=== PATIENT | male | born 1960 | race Caucasian/White ===

== ENCOUNTER → 2017-01-26 | Outpatient (CLI) | payer OTHER ==
[~2017-01-26] MED LIST: CETI10TA10 PO; IBUP-1050 PO
[2017-01-26 10:24] LABS: CHOLESTEROL/HDL RATIO 3.5; PROSTATE SPECIFIC ANTIGEN 0.521 ng/ml (0.000-4.000)
== END | disposition home or self-care (01) ==
LOC: C.LAB1850 08:44
PROVIDERS: ATTEND Internal Medicine
DX: Z13.220 Encounter for screening for lipoid disorders (principal)

== ENCOUNTER 2019-06-22 13:54 | Inpatient (IN) ==
[2019-06-22] MEDS ORDERED: GI COCKTAIL ED USE PO ONE (14:23)
[2019-06-22] MEDS ORDERED: FAMOTIDINE 20 MG TAB PO ONE (14:23)
[2019-06-22] MEDS ORDERED: SUCRALFATE 1 GM TAB PO STA (14:23)
[2019-06-22] MEDS ORDERED: NITROGLYCERIN SL 0.4 MG/TAB TAB SL STA ×2 (14:28→14:48)
[2019-06-22] MEDS ORDERED: ASPIRIN CHEW 324 MG PO STA (14:28)
[2019-06-22] MEDS ORDERED: HEPARIN SOD (PORCINE) 1000 UNIT/ML 10 ML VIAL IV ONE (14:41)
[2019-06-22 14:50] LABS: Basophils # (auto) 0.03 K/uL (0-0.2); Basophils % (auto) 0.5 %; Eosinophils # (auto) 0.09 K/uL (0-0.5); Eosinophils % (auto) 1.6 %; Hematocrit (blood only) 47.2 % (42-52); Hemoglobin 16.9 g/dL (14.0-18.0); Immature Granulocytes # (auto) 0.01 K/uL (0.00-0.02); Immature Granulocytes % (auto) 0.2 %; Lymphocytes # (auto) 1.27 K/uL (1.2-3.4); Lymphocytes % (auto) 22.2 %; Mean Corpuscular Hemoglobin 34.9 pg (25-34); Mean Corpuscular Hgb Conc 35.8 g/dL (32-36); Mean Corpuscular Volume 97.5 fL (80-100); Mean Platelet Volume 10.6 fL (7.4-10.4); Monocytes # (auto) 0.63 K/uL (0.11-0.59); Neutrophils # (auto) 3.69 K/uL (1.4-6.5); Neutrophils % (auto) 64.5 %; Platelet Count 175 K/uL (130-400); RDW Standard Deviation 42.6 fL (36.4-46.3); Red Blood Count 4.84 M/uL (4.7-6.1); White Blood Count 5.72 K/uL (4.8-10.8)
[2019-06-22] MEDS ORDERED: MoRPHine SULFATE 10 MG/ML CARP/VIAL ONE (14:50)
[2019-06-22] MEDS ORDERED: ONDANSETRON INJ 2 MG/ML 2 ML VIAL ONE (14:50)
[2019-06-22] MEDS ORDERED: TICAGRELOR 90 MG TAB PO ONE (14:51)
[2019-06-22] MEDS ORDERED: HEPARIN (PORCINE) 1000 UNIT/ML 10 ML (CATH LAB USE ONLY) ONE (14:52)
[2019-06-22] MEDS ORDERED: NiCARDipine HCL INJ 2.5 MG/ML 10 ML AMP ONE (14:52)
[2019-06-22] MEDS ORDERED: NITROGLYCERIN/D5W 100MCG/ML 20ML SYR ONE (14:53)
[2019-06-22] MEDS ORDERED: fentaNYL citrate 100 MCG/2 ML VIAL ONE (14:53)
[2019-06-22] MEDS ORDERED: MIDAZOLAM HCL 1 MG/ML 2ML VIAL ONE (14:53)
[2019-06-22 14:58] LABS: D Dimer 310 ug/L FEU (0-500)
--- NOTE | 2019-06-22 15:01 | XRay Report ---
XR chest 1V portable CLINICAL HISTORY: Atypical chest pain COMPARISON STUDY: 10/07/2018 FINDINGS: The cardiac and mediastinal contours are normal. There is no evidence of focal pulmonary co nsolidation. There is no evidence of failure. No pleural effusions are visualized.[No pneumothorax is visualized. IMPRESSION: No active disease in the chest. ACT 112: Negative or not required by law. Electronically signed by: Alessandro Caal M.D. 06/22/2019 2:59 PM
--- NOTE | 2019-06-22 15:07 | Pre Anesthesia Assessment ---
Date of Service June 22, 2019 Pre Sedation Assessment Vital Signs Temp Pulse Resp BP Pulse Ox 06/22/19 15:00 60 16 124/71 98 06/22/19 14:56 58 L 16 97 06/22/19 14:55 65 19 135/86 97 06/22/19 14:54 67 23 144/74 H 98 06/22/19 14:51 73 24 98 06/22/19 14:45 71 20 97 06/22/19 14:41 80 17 153/93 H 97 06/22/19 14:40 71 16 97 06/22/19 14:36 76 20 94 06/22/19 14:30 67 18 152/90 H 06/22/19 14:25 81 21 100 06/22/19 14:23 97 06/22/19 14:21 84 17 100 06/22/19 14:15 70 18 95 06/22/19 14:11 62 18 95 06/22/19 14:09 59 L 12 168/89 H 95 06/22/19 14:00 97.5 F L 65 16 169/99 H 97 Cardiovascular RRR, no murmur, no edema Respiratory normal respiratory effort, lungs clear to auscultation Pre-Sedation Airway Assessment Smoking Status: Never smoker Hx Sleep Apnea: No Hx Difficult Intubation: No Short, Thick Neck: No Thyromental Distance: > or= 3.5 Finger Breadths Oral Cavity: + WNL Mallampati Class: III Procedure Planning Contraindications for Sedation: none Current Medications Reviewed: Yes Notes The planned sedation has been discussed with the patient. Informed Consent was obtained. I have identified the patient, determined the appropriateness of sedation and have assessed the patient immediately prior to the procedure. All medicine(s) and interventions are by my order.
[2019-06-22 15:08] LABS: Partial Thromboplastin Ratio 0.9; Partial Thromboplastin Time 24.6 Seconds (21.0-31.0); Prothrombin Time 10.6 Seconds (9.0-12.0)
[2019-06-22 15:10] LABS: BUN Creatinine Ratio 11.8 (10-20); Calcium 9.6 mg/dl (8.5-10.1); Creatinine Clr Calc Pharmacy 69.9 ml/min; Est GFR (African American) 70.7; Potassium 4.2 mmol/L (3.5-5.1)
--- NOTE | 2019-06-22 15:10 | Cardiac Catheterization ---
[facility] Data: [facility] [place] Cardiac Status Clinical evaluation leading to the procedure CAD Presenation: STEMI Anginal Classification: CCS IV Heart Failure: No Cardiogenic Shock within 24 Hours: No Cardiac Arrest within 24 Hours: No Imaging Studies Past 6 Months: No Stress Studies Past 6 Months: No Diagnostic Physicians Name: Sincere Casas MD Status: Emergency Closure Device Percutaneous Entry Location: Radial Closure Device: Radial Band Recommendations: PCI without planned CABG PCI Indication: Immediate PCI for STEMI Lesion Segment Name: Mid LAD Culprit Artery: Yes Stenosis Prior to Rx (%): 99 Chronic Total Occlusion: No IVUS: No FFR: No Pre-Procedure XUAN Flow: 2 Previously Treated Lesion: No Thrombus Present: Yes Bifurcation Lesion: Yes Guidewire Across Lesion: Stenosis Post-Procedure (%): 0 Post-Procedure XUAN Flow: 3 Devices(s) Deployed: Yes Yes Intraprocedure Events Significant Disection: No Perforation: No Cardiac Cath Procedure Full Procedure Date June 22, 2019 Pre-Procedure Diagnosis Pre-Procedure Diagnosis: STEMI AUC Score AUC Score: 9 Post-Procedure Diagnosis Post-Procedure Diagnosis: Severe CAD, Successful PCI and Normal Intracardiac Pressures Procedure(s) Performed Procedure(s) Performed: Coronary Angiography, Left Heart Cath and Drug Eluting Stent 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 Plug And 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 Medium caliber OM 2 with 50 to 60% proximal disease. RCA -large caliber vessel, dominant, 30 to 40% mid segment disease, distal luminal irregularities. LVEDP -15 -- PCI -- Antithrombotic therapy: Heparin, ticagrelor Procedure: Left main cannulated with EBU 3.5 guide BMW wire passed across lesion into distal vessel Mid LAD lesion predilated with 2.5 compliant balloon Dilated lesion stented with 3.5 x 26 mm [place] drug-eluting stent Stent post-dilated with 4.0 noncompliant balloon IC vasodilators administered for spasm Post procedure XUAN 3 flow, stent well expanded with minimal residual stenosis and no apparent cardiac complications. Arterial Closure: TR band Summary: 1. Anterior STEMI/99% earlymid LAD stenosis 2. Mild to moderate non-culprit vessel coronary artery disease -50 to 60% OM 2 30 to 40% mid RCA 3. Normal intracardiac filling pressure 4. Successful PCI of earlymid LAD with single drug-eluting stent (3.5 x 26 mm [place]; postdilated with 4.0 NC). Recommendations: Admit to ICU for continued monitoring Loaded with ticagrelor 180 mg in emergency department Continue dual-antiplatelet therapy for at least 1 year. Trend troponins until peak, Check Echo Uptitrate beta-rayshawn/NELLY as BP allows High-dose statin Consult cardiac Rehab Hemodynamics Rest Ao:: 102/66/83 Final Ao: 105/60/74 LV: 105/15 Recommendations Recommendations: PCI without planned CABG Specimens Specimens: None Radiation Exposure (mGy) 2174 Contrast (mls) 125 Fluids (cc crystalloids) Fluids (cc crystalloids): 100 Drains Drains: None Anesthesia Moderate Procedural Complication(s) None Disposition ICU I attest to the content of the Intraoperative Record and any orders documented therein. Any exceptions are noted below. [facility] Card Cath Procedure Codes Cardiac Catheterization Procedure 1: Cardiovascular Cath Procedures: 34708 Coronaries and LHC (+/-LV) Moderate Sedation Procedure 1: Sedation/Anesthesia: 76640 Mod Sedation by the same physician;Init15 Min Child Age 5 & Up Stenting Procedure 1: Cardiovascular Stent Procedures: 59376 Perc transluminal revascularization of acute sub/total occl, aMI PG Care Time/CCT Total # of Minutes Spent Total Time Spent with Patient: Total time spent is greater than 50% in coordination of care (as documented) at patient's floor/unit and/or counseling patient:
[2019-06-22] MEDS ORDERED: MoRPHine SULFATE 4 MG/ML 1 ML CARP\\VIAL ONE (15:11)
[2019-06-22 15:20] LABS: Albumin Globulin Ratio 1.1 (0.9-2); Bilirubin,Total 0.6 mg/dl (0.2-1); Creatine Kinase MB 5.8 ng/ml (0.5-3.6); Globulin 3.7 gm/dl (2.5-4.0); Total Protein 7.7 gm/dl (6.4-8.2); Troponin I 0.238 ng/ml (0-0.045)
--- NOTE | 2019-06-22 15:21 | Cardiology Consultation ---
Date of Consultation June 22, 2019 Assessment & Plan (1) ST elevation (STEMI) myocardial infarction: ASSESSMENT/PLAN: 1. STEMI: ECG suggestive of LAD STEMI. This was discussed with and Mrs. Hussein. Recommended nitroglycerin, heparin, and morphine for pain control. Brilinta 180 mg p.o. x1 ordered. Recommended heart alert activation. Recommended cardiac catheterization. Risks and benefits of the procedure were discussed with him in detail. He was made aware that CT surgery is not available at this facility. He and his were agreeable to undergo coronary angiography and PCI, if deemed appropriate. Recommend echocardiogram during this hospitalization. Risk factor modification. 2. Disposition: Cardiac catheterization recommended on emergent basis. Cardiology will continue to follow throughout the hospital stay. Patient care discussed with Dr. Casas of interventional Cardiology, and Dr. Bhat of the emergency department. Highly complex medical issues. 40 minutes of critical care time spent managing his STEMI and coordinating care for emergent cardiac catheterization. History of Present Illness Reason for Consultation: Chest pain and ST elevation Requesting Physician: Dr. Bhat Attending Physician: Dr. Bhat History of Present Illness Mr. Hussein is a very pleasant 58-year-old gentleman with no significant past medical history who presented to the emergency department today with chest discomfort. At approximately 2:30 a.m., he was awakened from sleep with substernal chest discomfort that radiates to the right side of his chest and to his right shoulder. It lasted for few minutes before spontaneously resolving. He did not go back to bed however. The pain intermittently recurred throughout the rest of the morning. Symptoms were accompanied by diaphoresis and shortness of breath. His asked him about coming to the emergency department and he agreed. His states that he typically would down play symptoms so she knew that he must be feeling ill. When he initially came to the emergency department and had his first ECG at 2:03 p.m., he was pain-free. ECG at that time demonstrated normal sinus rhythm with nonspecific ST abnormality. He then once again developed chest discomfort and another ECG was checked at 2:26 p.m.. This demonstrated up to [address] elevation in leads V3-V5, with [address]-elevation in V6. At this point, Dr. hBat paged me to evaluate the ECG. Heart Alert protocol was recommended. When at the bedside, he was having low-level pain of approximately 2/10. He was given another nitroglycerin. He had already been given 1 nitroglycerin and full-dose aspirin. Heparin bolus 5000 units IV recommended and given. Pain worsened and he was given morphine by Dr. Bhat. After another dose of nitroglycerin and a second dose of morphine, his pain started to improve. He denies any recent syncope, near-syncope, palpitations, or bleeding such as melena, hematochezia, or hematuria. He denies fevers. He exercises regularly and has not had any exertional symptoms or decreased exercise tolerance. His first symptom onset was this morning at 2:30 a.m.. Review of systems: As above. Review of systems otherwise negative/unremarkable. Family history: Father had first DE in his 30s and eventually underwent CABG. He is now 83. Social history: Occasionally smokes a cigar. Occasional alcohol. No drugs. Lives at home with his . They have 2 grown daughters, 1 in [place] and 1 in [facility]. 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 His accompanied him at the bedside. Allergies Allergy/AdvReac Type Severity Reaction Status Date / Time fentanyl AdvReac Confusion Verified 06/22/19 15:02 Home Medications Home Medications Medication Instructions Recorded Confirmed Type cetirizine 10 mg tablet 10 mg PO DAILY 01/21/19 06/22/19 History omeprazole 10 mg capsule,delayed 10 mg PO DAILY 01/21/19 06/22/19 History release Patient History Medical History Finger laceration with complication (Acute) Hiatal hernia Idiopathic polyneuropathy (Chronic) Incarcerated umbilical hernia (Acute) Surgical History H/O knee surgery (Resolved) Hx of cataract surgery (Resolved) Family History (Updated 06/22/19 @ 14:52 by Wesley Brady) Father Diabetes Hx of CABG Acute myocardial infarction Diverticulitis Grandfather (Maternal) Acute myocardial infarction Social History Preferred Language: Czech marital status: Current Living Situation: Spouse Feels Safe at Home: Yes Smoking Status: Never smoker Physical Exam Physical Exam: Gen.: With worsening pain, he appeared to be uncomfortable. Alert and oriented. HEENT: Anicteric sclera. Neck: No JVD. No bruits. Normal carotid upstrokes bilaterally. Cardiac: No ventricular heave. Regular rate and rhythm. Normal S1-S2. No murmurs, rubs, or gallops. Pulmonary: Clear to auscultation bilaterally without wheezes, rales, or rhonchi. Abdomen: Soft, nontender, nondistended, with normoactive bowel sounds. No bruits noted. Extremities: 2+ radial pulses bilaterally. 2+ posterior tibialis pulses bilaterally. No edema or cyanosis. No palpable cords. Psychiatric: Affect appears appropriate. Results & Data Vital Signs (Past 12 Hours) Vital Signs Temp Pulse Resp BP Pulse Ox 06/22/19 15:00 60 16 124/71 98 06/22/19 14:56 58 L 16 97 06/22/19 14:55 65 19 135/86 97 06/22/19 14:54 67 23 144/74 H 06/22/19 14:51 73 24 98 06/22/19 14:45 71 20 97 06/22/19 14:41 80 17 153/93 H 97 06/22/19 14:40 71 16 97 06/22/19 14:36 76 17 94 06/22/19 14:30 67 18 152/90 H 06/22/19 14:25 81 21 100 06/22/19 14:23 97 06/22/19 14:21 84 17 100 06/22/19 14:15 70 18 95 06/22/19 14:11 62 18 95 06/22/19 14:09 59 L 12 168/89 H 95 06/22/19 14:00 36.4 C L 65 16 169/99 H 97 Laboratory Results Laboratory Results - last 24 hr 06/22/19 06/22/19 06/22/19 14:39 14:39 14:39 WBC 5.72 RBC 4.84 Hgb 16.9 Hct 47.2 MCV 97.5 MCH 34.9 H MCHC 35.8 RDW Std Deviation 42.6 RDW Coeff of David 12.0 Plt Count 175 MPV 10.6 H Immature Gran % (Auto) 0.2 Neut % (Auto) 64.5 Lymph % (Auto) 22.2 Griggs % (Auto) 11.0 Eos % (Auto) 1.6 Baso % (Auto) 0.5 Immature Gran # (Auto) 0.01 Neut # (Auto) 3.69 Lymph # (Auto) 1.27 Griggs # (Auto) 0.63 H Eos # (Auto) 0.09 Baso # (Auto) 0.03 PT INR APTT PTT Ratio D-Dimer 310 Sodium 142 Potassium 4.2 Chloride 107 Carbon Dioxide 27 Anion Gap 8.0 BUN 15 Creatinine 1.27 Est Cr Clr Drug Dosing 69.9 Est GFR ( Amer) 70.7 Est GFR (Non-Af Amer) 61.0 BUN/Creatinine Ratio 11.8 Glucose 114 H Calcium 9.6 Total Bilirubin Pending AST 14 L ALT 25 Alkaline Phosphatase Pending Total Creatine Kinase Pending CK-MB (CK-2) Pending POC Troponin I Troponin I Pending Total Protein Pending Albumin 4.0 Globulin Pending Albumin/Globulin Ratio Pending Lipase 118 06/22/19 06/22/19 14:39 14:43 WBC RBC Hgb Hct MCV MCH MCHC RDW Std Deviation RDW Coeff of David Plt Count MPV Immature Gran % (Auto) Neut % (Auto) Lymph % (Auto) Griggs % (Auto) Eos % (Auto) Baso % (Auto) Immature Gran # (Auto) Neut # (Auto) Lymph # (Auto) Griggs # (Auto) Eos # (Auto) Baso # (Auto) PT 10.6 INR 1.0 APTT 24.6 PTT Ratio 0.9 D-Dimer Sodium Potassium Chloride Carbon Dioxide Anion Gap BUN Creatinine Est Cr Clr Drug Dosing Est GFR ( Amer) Est GFR (Non-Af Amer) BUN/Creatinine Ratio Glucose Calcium Total Bilirubin AST ALT Alkaline Phosphatase Total Creatine Kinase CK-MB (CK-2) POC Troponin I 0.18 H Troponin I Total Protein Albumin Globulin Albumin/Globulin Ratio Lipase Diagnostic Findings ECGs personally reviewed: ECG 06/22/2019 at 2:03 p.m.: NSR at [address] abnormality. ECG 06/22/2019 at 2:26 p.m. with chest pain: NSR at 72 bpm. Anterior STEMI. Chest x-ray 06/22/2019: No active disease per Radiology. Personal review demonstrated no infiltrate. Medications Administered Nitroglycerin Heparin Morphine Aspirin Brilinta PG Care Time/CCT Total # of Minutes Spent Total Time Spent with Patient: Total time spent is greater than 50% in coordination of care (as documented) at patient's floor/unit and/or counseling patient: Critical Care Time: Yes Total Critical Care Time: 40
--- NOTE | 2019-06-22 15:53 | Post Anesthesia Assessment ---
Date of Service June 22, 2019 Post Sedation Assessment Vital Signs Temp Pulse Resp BP Pulse Ox 06/22/19 15:00 60 16 124/71 98 06/22/19 14:56 58 L 16 97 06/22/19 14:55 65 19 135/86 97 06/22/19 14:54 67 23 144/74 H 98 06/22/19 14:51 73 24 98 06/22/19 14:45 71 20 97 06/22/19 14:41 80 17 153/93 H 97 06/22/19 14:40 71 16 97 06/22/19 14:36 76 20 94 06/22/19 14:30 67 18 152/90 H 06/22/19 14:25 81 21 100 06/22/19 14:23 97 06/22/19 14:21 84 17 100 06/22/19 14:15 70 18 95 06/22/19 14:11 62 18 95 06/22/19 14:09 59 L 12 168/89 H 95 06/22/19 14:00 97.5 F L 65 16 169/99 H 97 Recovery Score Activity: Moves 4 extremities Respiration: Deep Breath/Cough Circulation: +/-20% PreAnes Value Consciousness: Fully Awake Oxygen Saturation: O2 needed for >90% Discharge Sedation Level of Care: Fast Track Phase II Post Sedation Plan On clinical assessment, the patient appears to have tolerated the sedation without complications. Patient is recovering as anticipated. Patient will continue to be monitored by nursing and may be discharged when sedation discharge criteria are met per below protocol. Upon Completions of procedure up to 15 minutes continue every 5 minute vital signs and the P.A.R. score; then discharge to a Phase I or Fast Track to Phase II per the following guidelines: * Discharge Patient to appropriate Phase II area if PAR is 8 or greater or return to pre- procedure baseline. The post - procedure orders will be as directed. * If PAR score is less than 8 or not return to pre-procedure baseline then patient will follow Phase I monitoring till PAR is reached for Phase II. The Phase I may be done in procedure room or may call to secure a Phase I area. * If naloxone or flumazenil are used for reversal, hold in Phase I for continued monitoring from when last reversal dose was given for a minimum of 60 minutes or longer pending the nurse and/or physician discretion of patient condition before discharge to Phase II. Please call the Sedation Physician to re-evaluate and complete post-note for discharge to Phase II area. Do NOT discharge from procedure sedation or Phase 1 until post- sedation evaluation note is complete by procedure /sedation MD Sedation Discharge Instructions to be given to the patient at discharge to home.
[2019-06-22] MEDS ORDERED: ONDANSETRON INJ 2 MG/ML 2 ML VIAL IV PRN (16:05)
[2019-06-22] MEDS ORDERED: ICU PROTOCOL FOR HYPERGLYCEMIA PRN (16:09)
[2019-06-22] MEDS ORDERED: SODIUM CHLORIDE 0.9% 1000ML 1,000 ML IV SCH (16:15)
--- NOTE | 2019-06-22 17:14 | Hospitalist Consultation ---
Date of Consultation June 22, 2019 Assessment & Plan (1) ST elevation (STEMI) myocardial infarction: - S/p cardiac cath, anterior STEMI with 99% early-mid LAD stenosis; 50 to 60% OM 2 and 30 to 40% mid RCA. - Successful PCI of LAD with single STEVEN. - Received loading dose of Brilinta; continue dual anti-platelet therapy for at least 1 year. - Started Metoprolol tartrate 12.5 mg BID and Lisinopril 5 mg qAM. - Started Atorvastatin 80 mg qAM; Lipid panel and Hemoglobin A1C pending in the morning. - Transferred to ICU for close monitoring; echo pending. - Consulting cardiac rehab. (2) Elevated troponin: - Trop currently elevated, will continue to trend until level peaks. (3) GERD (gastroesophageal reflux disease): - Continue PPI. (4) DVT prophylaxis: - ASA & Brilinta. Dispo: ICU status, will continue to follow. Supervising Physician Co-Signing Physician Notes I supervised Eileen Morataya PA-C on this patient's care. I examined the patient today independently of her. I discussed the plan of care with her with the plan being as written in her note except for any following changes/exceptions: None. Feeling well after cath. Explained the general time frame of being in the hospital for 2-3 days to monitor heart. No other issues. History of Present Illness Reason for Consultation: Medical management Attending Physician: Ariel Harris MD History of Present Illness Mr. Hussein is a 58 year old male with past medical history of GERD, seasonal allergies who presented to the ER this afternoon with chest pain and shortness of breath. Pt. reports he woke up around 2:30 am this morning with right sided chest pain that radiated to his right shoulder. Chest pain was intermittent. He developed shortness of breath at rest as the morning progressed and he arrived at the ER around 2 p.m. Heart alert was initiated due to ST elevation noted on EKG. He is status post cardiac cath, had 99% blockage of LAD with PCI & placement of STEVEN. He is currently admitted to the ICU post procedure. Pt. feels well overall, denies current chest pain or SOB. His is present at bedside along with other family members. Allergies Allergy/AdvReac Type Severity Reaction Status Date / Time fentanyl AdvReac Confusion Verified 06/22/19 15:02 Home Medications Home Medications Medication Instructions Recorded Confirmed Type cetirizine 10 mg tablet 10 mg PO DAILY 01/21/19 06/22/19 History omeprazole 10 mg capsule,delayed 10 mg PO DAILY 01/21/19 06/22/19 History release Patient History Medical History Finger laceration with complication (Acute) Hiatal hernia Idiopathic polyneuropathy (Chronic) Incarcerated umbilical hernia (Acute) Surgical History H/O knee surgery (Resolved) Hx of cataract surgery (Resolved) Family History Father Diabetes Hx of CABG Acute myocardial infarction Diverticulitis Grandfather (Maternal) Acute myocardial infarction Social History Preferred Language: [place] Communication Ability: Effective 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 Beliefs That Will Affect Care: None marital status: Current Living Situation: Spouse Other Information That Helps Us Care for You: No Feels Safe at Home: Yes Safety Concerns: Feels Safe At This Time Smoking Status: Never smoker Hx Alcohol Use: Yes Alcohol type: hard liquor Hx Substance Use: No Review of Systems Review of Systems: All systems reviewed & are unremarkable except as noted in HPI & below Constitutional: no fever, no chills, no fatigue, no weakness and no anorexia Respiratory: no cough, no dyspnea, no dyspnea on exertion and no wheezing Cardiovascular: no chest pain, no palpitations and no edema Gastrointestinal: no abdominal pain, no nausea, no vomiting, no constipation and no diarrhea/loose stools Genitourinary: no difficulty urinating Musculoskeletal: no back pain and no joint pain Integumentary: no non-healing lesions Physical Exam Physical Exam: General: Resting comfortably HEENT: NC/AT; PERRLA with EOMI; Rufus conjunctiva, MMM. No erythema of posterior pharynx Neck: Supple and nontender Cardiac: RRR Lungs: CTA bilaterally; No rhonchi, wheezing, or rales Abdomen: Bowel normoactive X 4; Nontender to palpation Extremities: Warm. No edema present Neuro: No focal weakness Skin: No rash Results & Data Vital Signs (Past 12 Hours) Vital Signs Temp Pulse Pulse Resp BP BP Pulse Ox 06/22/19 16:10 55 L 06/22/19 16:09 36.9 C 63 16 121/66 95 06/22/19 15:00 60 16 124/71 98 06/22/19 14:56 58 L 16 97 06/22/19 14:55 65 19 135/86 97 06/22/19 14:54 67 23 144/74 H 98 06/22/19 14:51 73 24 98 06/22/19 14:45 71 20 97 06/22/19 14:41 80 17 153/93 H 97 06/22/19 14:40 71 16 97 06/22/19 14:36 76 20 94 06/22/19 14:30 67 18 152/90 H 06/22/19 14:25 81 21 100 06/22/19 14:23 97 06/22/19 14:21 84 17 100 06/22/19 14:15 70 18 95 06/22/19 14:11 62 18 95 06/22/19 14:09 59 L 12 168/89 H 95 06/22/19 14:00 36.4 C L 65 16 169/99 H 97 Laboratory Results 06/22/19 06/22/19 06/22/19 Range/Units Unknown 16:20 15:30 WBC (4.8-10.8) K/uL RBC (4.7-6.1) M/uL Hgb (14.0-18.0) g/dL Hct (42-52) % MCV (80-100) fL MCH (25-34) pg MCHC (32-36) g/dL RDW Std Deviation (36.4-46.3) fL RDW Coeff of David (11.5-14.5) % Plt Count (130-400) K/uL MPV (7.4-10.4) fL Immature Gran % (Auto) % Neut % (Auto) % Lymph % (Auto) % [place] % (Auto) % Eos % (Auto) % Baso % (Auto) % Immature Gran # (Auto) (0.00-0.02) K/uL Neut # (Auto) (1.4-6.5) K/uL Lymph # (Auto) (1.2-3.4) K/uL [place] # (Auto) (0.11-0.59) K/uL Eos # (Auto) (0-0.5) K/uL Baso # (Auto) (0-0.2) K/uL PT (9.0-12.0) Seconds INR (0.9-1.1) APTT (21.0-31.0) Seconds PTT Ratio Activ Coag Time Kaolin 252 H (94-140) SECONDS D-Dimer (0-500) ug/L FEU Sodium (136-145) mmol/L Potassium (3.5-5.1) mmol/L Chloride (98-107) mmol/L Carbon Dioxide (21-32) mmol/L Anion Gap (3-11) BUN (7-18) mg/dl Creatinine (0.6-1.4) mg/dl Est Cr Clr Drug Dosing ml/min Est GFR ( Amer) Est GFR (Non-Af Amer) BUN/Creatinine Ratio (10-20) Glucose (70-99) mg/dl Calcium (8.5-10.1) mg/dl Total Bilirubin (0.2-1) mg/dl AST (15-37) U/L ALT (12-78) U/L Alkaline Phosphatase (45-117) U/L Total Creatine Kinase (39-308) U/L CK-MB (CK-2) (0.5-3.6) ng/ml CK/CKMB % Calc (0-3.0) POC Troponin I (0-0.045) ng/ml Troponin I (0-0.045) ng/ml Total Protein (6.4-8.2) gm/dl Albumin (3.4-5.0) gm/dl Globulin (2.5-4.0) gm/dl Albumin/Globulin Ratio (0.9-2) Lipase (73-393) U/L Nasal Screen MRSA (PCR) Pending Hepatitis C Ab Screen Pending 06/22/19 06/22/19 06/22/19 Range/Units 14:43 14:39 14:39 WBC (4.8-10.8) K/uL RBC (4.7-6.1) M/uL Hgb (14.0-18.0) g/dL Hct (42-52) % MCV (80-100) fL MCH (25-34) pg MCHC (32-36) g/dL RDW Std Deviation (36.4-46.3) fL RDW Coeff of David (11.5-14.5) % Plt Count (130-400) K/uL MPV (7.4-10.4) fL Immature Gran % (Auto) % Neut % (Auto) % Lymph % (Auto) % [place] % (Auto) % Eos % (Auto) % Baso % (Auto) % Immature Gran # (Auto) (0.00-0.02) K/uL Neut # (Auto) (1.4-6.5) K/uL Lymph # (Auto) (1.2-3.4) K/uL [place] # (Auto) (0.11-0.59) K/uL Eos # (Auto) (0-0.5) K/uL Baso # (Auto) (0-0.2) K/uL PT 10.6 (9.0-12.0) Seconds INR 1.0 (0.9-1.1) APTT 24.6 (21.0-31.0) Seconds PTT Ratio 0.9 Activ Coag Time Kaolin (94-140) SECONDS D-Dimer (0-500) ug/L FEU Sodium 142 (136-145) mmol/L Potassium 4.2 (3.5-5.1) mmol/L Chloride 107 (98-107) mmol/L Carbon Dioxide 27 (21-32) mmol/L Anion Gap 8.0 (3-11) BUN 15 (7-18) mg/dl Creatinine 1.27 (0.6-1.4) mg/dl Est Cr Clr Drug Dosing 69.9 ml/min Est GFR ( Amer) 70.7 Est GFR (Non-Af Amer) 61.0 BUN/Creatinine Ratio 11.8 (10-20) Glucose 114 H (70-99) mg/dl Calcium 9.6 (8.5-10.1) mg/dl Total Bilirubin 0.6 (0.2-1) mg/dl AST 14 L (15-37) U/L ALT 25 (12-78) U/L Alkaline Phosphatase 62 (45-117) U/L Total Creatine Kinase 167 (39-308) U/L CK-MB (CK-2) 5.8 H (0.5-3.6) ng/ml CK/CKMB % Calc 3.5 H (0-3.0) POC Troponin I 0.18 H (0-0.045) ng/ml Troponin I 0.238 H* (0-0.045) ng/ml Total Protein 7.7 (6.4-8.2) gm/dl Albumin 4.0 (3.4-5.0) gm/dl Globulin 3.7 (2.5-4.0) gm/dl Albumin/Globulin Ratio 1.1 (0.9-2) Lipase 118 (73-393) U/L Nasal Screen MRSA (PCR) Hepatitis C Ab Screen 06/22/19 06/22/19 Range/Units 14:39 14:39 WBC 5.72 (4.8-10.8) K/uL RBC 4.84 (4.7-6.1) M/uL Hgb 16.9 (14.0-18.0) g/dL Hct 47.2 (42-52) % MCV 97.5 (80-100) fL MCH 34.9 H (25-34) pg MCHC 35.8 (32-36) g/dL RDW Std Deviation 42.6 (36.4-46.3) fL RDW Coeff of David 12.0 (11.5-14.5) % Plt Count 175 (130-400) K/uL MPV 10.6 H (7.4-10.4) fL Immature Gran % (Auto) 0.2 % Neut % (Auto) 64.5 % Lymph % (Auto) 22.2 % [place] % (Auto) 11.0 % Eos % (Auto) 1.6 % Baso % (Auto) 0.5 % Immature Gran # (Auto) 0.01 (0.00-0.02) K/uL Neut # (Auto) 3.69 (1.4-6.5) K/uL Lymph # (Auto) 1.27 (1.2-3.4) K/uL [place] # (Auto) 0.63 H (0.11-0.59) K/uL Eos # (Auto) 0.09 (0-0.5) K/uL Baso # (Auto) 0.03 (0-0.2) K/uL PT (9.0-12.0) Seconds INR (0.9-1.1) APTT (21.0-31.0) Seconds PTT Ratio Activ Coag Time Kaolin (94-140) SECONDS D-Dimer 310 (0-500) ug/L FEU Sodium (136-145) mmol/L Potassium (3.5-5.1) mmol/L Chloride (98-107) mmol/L Carbon Dioxide (21-32) mmol/L Anion Gap (3-11) BUN (7-18) mg/dl Creatinine (0.6-1.4) mg/dl Est Cr Clr Drug Dosing ml/min Est GFR ( Amer) Est GFR (Non-Af Amer) BUN/Creatinine Ratio (10-20) Glucose (70-99) mg/dl Calcium (8.5-10.1) mg/dl Total Bilirubin (0.2-1) mg/dl AST (15-37) U/L ALT (12-78) U/L Alkaline Phosphatase (45-117) U/L Total Creatine Kinase (39-308) U/L CK-MB (CK-2) (0.5-3.6) ng/ml CK/CKMB % Calc (0-3.0) POC Troponin I (0-0.045) ng/ml Troponin I (0-0.045) ng/ml Total Protein (6.4-8.2) gm/dl Albumin (3.4-5.0) gm/dl Globulin (2.5-4.0) gm/dl Albumin/Globulin Ratio (0.9-2) Lipase (73-393) U/L Nasal Screen MRSA (PCR) Hepatitis C Ab Screen PG Care Time/CCT Total # of Minutes Spent Total Time Spent with Patient: Total time spent is greater than 50% in coordination of care (as documented) at patient's floor/unit and/or counseling patient:
--- NOTE | 2019-06-22 19:37 | Emergency Department Note ---
Entered by Wesley Brady acting as a scribe for History of Present Illness General Chief complaint: Cardiac Assessment Stated complaint: CHEST TIGHTNESS, SOB Time Seen by Provider: 06/22/19 14:09 Source: patient History of Present Illness Onset (ago): hour(s) greater than 10 (12) Location: chest (chest tightness) Radiation: extremity (right arm pain) Pain Consistency: + other (waxing and waning) Maximum Pain Intensity: 4 Relieved By: + other (sitting up) Exacerbated By: + other (exertion and deep breathing); not by eating Associated symptoms: + shortness of breath and + other (right arm pain) The patient is a 58 year old M who presents to the Emergency Room with complaints of waxing and waning chest pain that started 12 hours ago. The patient notes that he ate a late meal last night. He adds that he has a history of hiatal hernias which is worsened when he eats late meals. He states that with his hiatal hernias, he experiences chest tightness. He notes that around 2am this morning, he woke up with chest tightness, shortness of breath, right arm pain, burping, and passing gas. He adds that he initially thought that his chest tightness was due to his history of hiatal hernias due to his additional symptoms of burping and passing gas. He notes that even after his burping and passing gas subsided, he was still experiencing chest tightness. He adds that this is unusual for him. He states that he recently started swimming, 2 days ago. He adds that he previously swam 3 years ago. He notes that when he swims, he normally experiences constant right arm pain. He adds that his current right arm pain is different due to its waxing and waning presentation. He notes that his chest tightness is worsened with exertion and deep breathing. He states that he carried [place] decorations up a flight of stairs, today, which worsened his chest pain. He notes that he ate oatmeal this morning for breakfast. He denies that his breakfast worsened his chest pain. He adds that sitting up relieves his chest pain. He denies a personal cardiac history. He notes that he has never had a stress test. He denies a history of smoking. He states that his father had a heart attack at the age of 38. He adds that his father had quadruple bypass surgery done. He notes that his maternal grandfather also had a history of heart attac ks. He states that he currently takes Omeprazole and Cetirizine. Home Medications Home Medications Medication Instructions Recorded Confirmed Type cetirizine 10 mg tablet 10 mg PO DAILY 01/21/19 06/22/19 History omeprazole 10 mg capsule,delayed 10 mg PO DAILY 01/21/19 06/22/19 History release Allergies Allergy/AdvReac Type Severity Reaction Status Date / Time fentanyl AdvReac Confusion Verified 06/22/19 15:02 Past Med/Surg History Medical History (Updated 06/24/19 @ 01:59 by Alfredo Bhat MD) CAD (coronary artery disease) Finger laceration with complication (Acute) Hiatal hernia Idiopathic polyneuropathy (Chronic) Incarcerated umbilical hernia (Acute) ST elevation (STEMI) myocardial infarction (Acute) Surgical History (Updated 06/23/19 @ 08:00 by Itz Pantoja MD) H/O knee surgery (Resolved) Hx of cataract surgery (Resolved) S/P drug eluting coronary stent placement Family History Father Diabetes Hx of CABG Acute myocardial infarction Diverticulitis Grandfather (Maternal) Acute myocardial infarction Social History Preferred Language: Senegalese Communication Ability: Effective 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 and A total of 10 systems reviewed and were otherwise negative Physical Exam Vital Signs Vital Signs - 24 hr 06/22/19 14:00 06/22/19 14:09 06/22/19 14:11 Temperature 36.4 C L Temperature Source Oral Pulse Rate 65 59 L 62 Pulse Rate from SpO2 Sensor 57 L 65 Respiratory Rate 16 12 18 Blood Pressure 169/99 H 168/89 H Blood Pressure Mean 122 104 Pulse Oximetry 97 95 95 Oxygen Delivery Method Room Air Sepsis Recent Fever Within 48 Hours No Sepsis New/Unexplained Change in Mental Status No Sepsis Action Taken by Nursing No Action Required 06/22/19 14:15 06/22/19 14:21 06/22/19 14:23 Temperature Temperature Source Pulse Rate 70 84 Pulse Rate from SpO2 Sensor 68 70 Respiratory Rate 18 17 Blood Pressure Blood Pressure Mean Pulse Oximetry 95 100 97 Oxygen Delivery Method Room Air Sepsis Recent Fever Within 48 Hours Sepsis New/Unexplained Change in Mental Status Sepsis Action Taken by Nursing 06/22/19 14:25 06/22/19 14:30 06/22/19 14:36 Temperature Temperature Source Pulse Rate 81 67 76 Pulse Rate from SpO2 Sensor 80 75 Respiratory Rate 21 18 20 Blood Pressure 152/90 H Blood Pressure Mean 96 Pulse Oximetry 100 94 Oxygen Delivery Method Room Air Sepsis Recent Fever Within 48 Hours Sepsis New/Unexplained Change in Mental Status Sepsis Action Taken by Nursing 06/22/19 14:40 06/22/19 14:41 06/22/19 14:45 Temperature Temperature Source Pulse Rate 71 80 71 Pulse Rate from SpO2 Sensor 73 66 75 Respiratory Rate 16 17 20 Blood Pressure 153/93 H Blood Pressure Mean 105 Pulse Oximetry 97 97 97 Oxygen Delivery Method Room Air Room Air Room Air Sepsis Recent Fever Within 48 Hours Sepsis New/Unexplained Change in Mental Status Sepsis Action Taken by Nursing 06/22/19 14:51 06/22/19 14:54 06/22/19 14:55 Temperature Temperature Source Pulse Rate 73 67 65 Pulse Rate from SpO2 Sensor 71 65 Respiratory Rate 24 23 19 Blood Pressure 144/74 H 135/86 Blood Pressure Mean 87 101 Pulse Oximetry 98 98 97 Oxygen Delivery Method Room Air Room Air Room Air Sepsis Recent Fever Within 48 Hours Sepsis New/Unexplained Change in Mental Status Sepsis Action Taken by Nursing 06/22/19 14:56 06/22/19 15:00 06/22/19 15:06 Temperature Temperature Source Pulse Rate 58 L 60 Pulse Rate from SpO2 Sensor 58 L 60 Respiratory Rate 16 16 Blood Pressure 124/71 Blood Pressure Mean 80 Pulse Oximetry 97 98 Oxygen Delivery Method Room Air Room Air Room Air Sepsis Recent Fever Within 48 Hours Sepsis New/Unexplained Change in Mental Status Sepsis Action Taken by Nursing GENERAL: Awake, alert, well-appearing, hyperventilating on exam HENT: Normocephalic, atraumatic. Oropharynx unremarkable. EYES: Normal conjunctiva. Sclera non-icteric. NECK: Supple. No nuchal rigidity. FROM. No JVD. RESPIRATORY: Clear to auscultation. CARDIAC: Regular rate, normal rhythm. Extremities warm and well perfused. Pulses equal. ABDOMEN: Soft, non-distended. No tenderness to palpation. No rebound or guarding. No masses. RECTAL: Deferred. MUSCULOSKELETAL: Chest examination reveals no tenderness. The back is symmetrica l on inspection without obvious abnormality. There is no CVA tenderness to palpation. No joint edema. LOWER EXTREMITIES: Calves are equal size bilaterally and non-tender. No edema. No discoloration. NEURO: Normal sensorium. No sensory or motor deficits noted. SKIN: No rash or jaundice noted. Course Course 1415: The patient was evaluated in room C12B. A complete history and physical exam was performed. 1432: I reviewed the patient's case with Dr. Itz Pantoja, [facility] Cardiology. He directed me to call a heart alert on the patient. 1441: I reviewed the patient's case with Dr. Itz Pantoja, [facility] Ca rdiology. He is currently at bedside, talking with the patient. 1504: The patient is currently receiving a cardiac catheterization. Administered Medications Aspirin (Ecotrin Ectab) 81 mg PO [facility] Stop: 07/23/19 08:59 Last Admin: 06/23/19 08:48 Dose: 81 mg Documented by: [id number] Atorvastatin Calcium ([facility]) [facility] Stop: 07/23/19 08:59 Last Admin: 06/23/19 08:49 Dose: 80 mg Documented by: [id number] Lisinopril (Zestril) 5 mg PO QAM [facility] Stop: 07/23/19 08:59 Last Admin: 06/23/19 08:50 Dose: 5 mg Documented by: [id number] Metoprolol Tartrate (Lopressor) 12.5 mg PO BID [facility] Stop: 07/22/19 20:59 Last Admin: 06/23/19 20:48 Dose: 12.5 mg Documented by: [id number] Admin: 06/23/19 08:51 Dose: 12.5 mg Documented by: [id number] Admin: 06/22/19 21:16 Dose: 12.5 mg Documented by: [id number] Pantoprazole Sodium (Protonix) 40 mg PO QAM [facility] Stop: 07/23/19 08:59 Last Admin: 06/23/19 08:49 Dose: 40 mg Documented by: [id number] Ticagrelor (Brilinta) 90 mg PO BID [facility] Stop: 07/22/19 23:29 Last Admin: 06/23/19 20:48 Dose: 90 mg Documented by: [id number] Admin: 06/23/19 08:48 Dose: 90 mg Documented by: [id number] Admin: 06/22/19 21:17 Dose: 90 mg Documented by: [id number] Discontinued Medications Al Hydrox/Mg Hydrox/Simethicone () 1 dose PO ONE ONE Stop: 06/22/19 14:24 Last Admin: 06/22/19 14:34 Dose: Not Given Documented by: [id number] Aspirin (Aspirin) 324 mg PO NOW STA Stop: 06/22/19 14:29 Last Admin: 06/22/19 14:34 Dose: 324 mg Documented by: [id number] Famotidine (Pepcid) 20 mg PO NOW ONE Stop: 06/22/19 14:24 Last Admin: 06/22/19 14:34 Dose: Not Given Documented by: [id number] Fentanyl Citrate (Fentanyl Citrate) Confirm Administered Dose 100 mcg .ROUTE .STK-MED ONE Stop: 06/22/19 14:54 Last Admin: 06/22/19 15:44 Dose: Not Given Documented by: [id number] Heparin Sodium (Porcine) (Heparin Iv Bolus) 5,000 units IV ONE ONE Stop: 06/22/19 14:42 Last Admin: 06/22/19 14:44 Dose: 5,000 units Documented by: [id number] Cosigned by: [id number] Heparin Sodium (Porcine) (Heparin Iv Bolus ([facility] Use Only)) Confirm Administered Dose 10,000 units .ROUTE .STK-MED ONE Stop: 06/22/19 14:53 Last Admin: 06/22/19 15:44 Dose: 4,000 units Documented by: [id number] Heparin Sodium/Sodium Chloride (Heparin/Nss 1000 Unit/500ml Flush Bag) Confirm Administered Dose 3,000 units IV .STK-MED ONE Stop: 06/22/19 14:54 Last Admin: 06/22/19 15:45 Dose: 3,000 units Documented by: [id number] Sodium Chloride (Nss 1000ml) 1,000 mls @ 100 mls/hr IV .Q10H [facility] Stop: 06/22/19 21:14 Last Infusion: 06/22/19 22:22 Dose: 0 mls/hr Documented by: [id number] Admin: 06/22/19 16:52 Dose: 100 mls/hr Documented by: [id number] Midazolam HCl (Versed) Confirm Administered Dose 2 mg .ROUTE .[facility] ONE Stop: 06/22/19 14:54 Last Admin: 06/22/19 15:46 Dose: 1 mg Documented by: [id number] Morphine Sulfate (Morphine Sulfate) Confirm Administered Dose 10 mg .ROUTE .[facility] ONE Stop: 06/22/19 14:51 Last Admin: 06/22/19 14:57 Dose: 10 mg Documented by: [id number] Morphine Sulfate (Morphine Sulfate) Confirm Administered Dose 4 mg .ROUTE .[facility] ONE Stop: 06/22/19 15:12 Last Admin: 06/22/19 15:46 Dose: Not Given Documented by: [id number] Nicardipine HCl (Cardene) Confirm Administered Dose 25 mg .ROUTE .[facility] ONE Stop: 06/22/19 14:53 Last Admin: 06/22/19 15:44 Dose: 25 mg Documented by: [id number] Nitroglycerin (Nitrostat) 0.4 mg SL NOW STA Stop: 06/22/19 14:29 Last Admin: 06/22/19 14:33 Dose: 0.4 mg Documented by: [id number] Nitroglycerin (Nitrostat) 0.4 mg SL NOW STA Stop: 06/22/19 14:49 Last Admin: 06/22/19 14:49 Dose: 0.4 mg Documented by: [id number] Nitroglycerin/Dextrose (Nitroglycerin/D5w 100 Mcg/Ml 20ml Syringe) Confirm Administered Dose 2,000 mcg .ROUTE .[facility] ONE Stop: 06/22/19 14:54 Last Admin: 06/22/19 15:46 Dose: 2,000 mcg Documented by: [id number] Ondansetron HCl (Zofran) Confirm Administered Dose 4 mg .ROUTE .[facility] ONE Stop: 06/22/19 14:51 Last Admin: 06/22/19 14:57 Dose: 4 mg Documented by: [id number] Sucralfate (Carafate Tab) 1 gm PO NOW STA Stop: 06/22/19 14:24 Last Admin: 06/22/19 14:34 Dose: Not Given Documented by: [id number] Ticagrelor (Brilinta) 180 mg PO ONE ONE Stop: 06/22/19 14:52 Last Admin: 06/22/19 15:00 Dose: 180 mg Documented by: [id number] Critical Care Time Critical Care Time: Yes Total Critical Care Time: 60 I have personally spent 60 minutes of critical care time in the direct management of this patient. This includes bedside care, interpretation of diagnostic studies, and testing, discussion with consultants, patient, and family members, and other required patient management activities. This 60 minutes is in excess of all separately billable procedures. Medical Decision Making Differential Diagnosis Differential diagnosis: Etiologies such as cardiac ischemia, aortic dissection, pulmonary embolism, pneumonia, pneumothorax, musculoskeletal, infections, pericarditis, myocarditis, esophageal rupture, gastrointestinal, as well as others were entertained. Medical Records Attestation: I reviewed the patient's medical records. Home Medications Current Medication List: was personally reviewed by me Laboratory Data Attestation: I reviewed the patient's lab results. Result diagrams: 06/23/19 04:06 06/23/19 04:06 Lab Results 06/22/19 06/22/19 06/22/19 Range/Units 14:39 14:39 14:39 WBC 5.72 (4.8-10.8) K/uL RBC 4.84 (4.7-6.1) M/uL Hgb 16.9 (14.0-18.0) g/dL POC Hgb (14.0-18.0) g/dl Hct 47.2 (42-52) % POC Hct (42-52) % MCV 97.5 (80-100) fL MCH 34.9 H (25-34) pg MCHC 35.8 (32-36) g/dL RDW Std Deviation 42.6 (36.4-46.3) fL RDW Coeff of David 12.0 (11.5-14.5) % Plt Count 175 (130-400) K/uL MPV 10.6 H (7.4-10.4) fL Immature Gran % (Auto) 0.2 % Neut % (Auto) 64.5 % Lymph % (Auto) 22.2 % [place] % (Auto) 11.0 % Eos % (Auto) 1.6 % Baso % (Auto) 0.5 % Immature Gran # (Auto) 0.01 (0.00-0.02) K/uL Neut # (Auto) 3.69 (1.4-6.5) K/uL Lymph # (Auto) 1.27 (1.2-3.4) K/uL [place] # (Auto) 0.63 H (0.11-0.59) K/uL Eos # (Auto) 0.09 (0-0.5) K/uL Baso # (Auto) 0.03 (0-0.2) K/uL PT (9.0-12.0) Seconds INR (0.9-1.1) APTT (21.0-31.0) Seconds PTT Ratio Activ Coag Time Kaolin (94-140) SECONDS D-Dimer 310 (0-500) ug/L FEU POC Sodium (135-144) mEq/L Sodium 142 (136-145) mmol/L POC Potassium (3.3-5.0) mEq/L Potassium 4.2 (3.5-5.1) mmol/L POC Chloride (101-112) mEq/L Chloride 107 (98-107) mmol/L Carbon Dioxide 27 (21-32) mmol/L POC Total CO2 (24-31) mEq/l Anion Gap 8.0 (3-11) POC Anion Gap (16-25) mmol/L POC BUN (7-18) mg/dl BUN 15 (7-18) mg/dl Creatinine 1.27 (0.6-1.4) mg/dl POC Creatinine (0.6-1.3) mg/dl Est Cr Clr Drug Dosing 69.9 ml/min Est GFR ( Amer) 70.7 Est GFR (Non-Af Amer) 61.0 BUN/Creatinine Ratio 11.8 (10-20) Glucose 114 H (70-99) mg/dl POC Glucose (other) (70-99) mg/dl Calcium 9.6 (8.5-10.1) mg/dl POC Ioniz Calcium Pascale (1.12-1.32) mmol/l Total Bilirubin 0.6 (0.2-1) mg/dl AST 14 L (15-37) U/L ALT 25 (12-78) U/L Alkaline Phosphatase 62 (45-117) U/L Total Creatine Kinase 167 (39-308) U/L CK-MB (CK-2) 5.8 H (0.5-3.6) ng/ml CK/CKMB % Calc 3.5 H (0-3.0) POC Troponin I (0-0.045) ng/ml Troponin I 0.238 H* (0-0.045) ng/ml Total Protein 7.7 (6.4-8.2) gm/dl Albumin 4.0 (3.4-5.0) gm/dl Globulin 3.7 (2.5-4.0) gm/dl Albumin/Globulin Ratio 1.1 (0.9-2) Lipase 118 (73-393) U/L 06/22/19 06/22/19 06/22/19 Range/Units 14:39 14:43 14:45 WBC (4.8-10.8) K/uL RBC (4.7-6.1) M/uL Hgb (14.0-18.0) g/dL POC Hgb 16.3 (14.0-18.0) g/dl Hct (42-52) % POC Hct 48 (42-52) % MCV (80-100) fL MCH (25-34) pg MCHC (32-36) g/dL RDW Std Deviation (36.4-46.3) fL RDW Coeff of David (11.5-14.5) % Plt Count (130-400) K/uL MPV (7.4-10.4) fL Immature Gran % (Auto) % Neut % (Auto) % Lymph % (Auto) % [place] % (Auto) % Eos % (Auto) % Baso % (Auto) % Immature Gran # (Auto) (0.00-0.02) K/uL Neut # (Auto) (1.4-6.5) K/uL Lymph # (Auto) (1.2-3.4) K/uL [place] # (Auto) (0.11-0.59) K/uL Eos # (Auto) (0-0.5) K/uL Baso # (Auto) (0-0.2) K/uL PT 10.6 (9.0-12.0) Seconds INR 1.0 (0.9-1.1) APTT 24.6 (21.0-31.0) Seconds PTT Ratio 0.9 Activ Coag Time Kaolin (94-140) SECONDS D-Dimer (0-500) ug/L FEU POC Sodium 141 (135-144) mEq/L Sodium (136-145) mmol/L POC Potassium 4.0 (3.3-5.0) mEq/L Potassium (3.5-5.1) mmol/L POC Chloride 106 (101-112) mEq/L Chloride (98-107) mmol/L Carbon Dioxide (21-32) mmol/L POC Total CO2 24 (24-31) mEq/l Anion Gap (3-11) POC Anion Gap 17.0 (16-25) mmol/L POC BUN 14 (7-18) mg/dl BUN (7-18) mg/dl Creatinine (0.6-1.4) mg/dl POC Creatinine 1.1 (0.6-1.3) mg/dl Est Cr Clr Drug Dosing ml/min Est GFR ( Amer) Est GFR (Non-Af Amer) BUN/Creatinine Ratio (10-20) Glucose (70-99) mg/dl POC Glucose (other) 116 H (70-99) mg/dl Calcium (8.5-10.1) mg/dl POC Ioniz Calcium Pascale 1.25 (1.12-1.32) mmol/l Total Bilirubin (0.2-1) mg/dl AST (15-37) U/L ALT (12-78) U/L Alkaline Phosphatase (45-117) U/L Total Creatine Kinase (39-308) U/L CK-MB (CK-2) (0.5-3.6) ng/ml CK/CKMB % Calc (0-3.0) POC Troponin I 0.18 H (0-0.045) ng/ml Troponin I (0-0.045) ng/ml Total Protein (6.4-8.2) gm/dl Albumin (3.4-5.0) gm/dl Globulin (2.5-4.0) gm/dl Albumin/Globulin Ratio (0.9-2) Lipase (73-393) U/L 06/22/19 Range/Units 15:30 WBC (4.8-10.8) K/uL RBC (4.7-6.1) M/uL Hgb (14.0-18.0) g/dL POC Hgb (14.0-18.0) g/dl Hct (42-52) % POC Hct (42-52) % MCV (80-100) fL MCH (25-34) pg MCHC (32-36) g/dL RDW Std Deviation (36.4-46.3) fL RDW Coeff of David (11.5-14.5) % Plt Count (130-400) K/uL MPV (7.4-10.4) fL Immature Gran % (Auto) % Neut % (Auto) % Lymph % (Auto) % [place] % (Auto) % Eos % (Auto) % Baso % (Auto) % Immature Gran # (Auto) (0.00-0.02) K/uL Neut # (Auto) (1.4-6.5) K/uL Lymph # (Auto) (1.2-3.4) K/uL [place] # (Auto) (0.11-0.59) K/uL Eos # (Auto) (0-0.5) K/uL Baso # (Auto) (0-0.2) K/uL PT (9.0-12.0) Seconds INR (0.9-1.1) APTT (21.0-31.0) Seconds PTT Ratio Activ Coag Time Kaolin 252 H (94-140) SECONDS D-Dimer (0-500) ug/L FEU POC Sodium (135-144) mEq/L Sodium (136-145) mmol/L POC Potassium (3.3-5.0) mEq/L Potassium (3.5-5.1) mmol/L POC Chloride (101-112) mEq/L Chloride (98-107) mmol/L Carbon Dioxide (21-32) mmol/L POC Total CO2 (24-31) mEq/l Anion Gap (3-11) POC Anion Gap (16-25) mmol/L POC BUN (7-18) mg/dl BUN (7-18) mg/dl Creatinine (0.6-1.4) mg/dl POC Creatinine (0.6-1.3) mg/dl Est Cr Clr Drug Dosing ml/min Est GFR ( Amer) Est GFR (Non-Af Amer) BUN/Creatinine Ratio (10-20) Glucose (70-99) mg/dl POC Glucose (other) (70-99) mg/dl Calcium (8.5-10.1) mg/dl POC Ioniz Calcium Pascale (1.12-1.32) mmol/l Total Bilirubin (0.2-1) mg/dl AST (15-37) U/L ALT (12-78) U/L Alkaline Phosphatase (45-117) U/L Total Creatine Kinase (39-308) U/L CK-MB (CK-2) (0.5-3.6) ng/ml CK/CKMB % Calc (0-3.0) POC Troponin I (0-0.045) ng/ml Troponin I (0-0.045) ng/ml Total Protein (6.4-8.2) gm/dl Albumin (3.4-5.0) gm/dl Globulin (2.5-4.0) gm/dl Albumin/Globulin Ratio (0.9-2) Lipase (73-393) U/L Imaging Data Radiologist's Impression: Radiology results as stated below per my review and the radiologist's interpretation: XR chest 1V portable CLINICAL HISTORY: Atypical chest pain COMPARISON STUDY: 10/07/2018 FINDINGS: The cardiac and mediastinal contours are normal. There is no evidence of focal pulmonary consolidation. There is no evidence of failure. No pleural effusions are visualized.[No pneumothorax is visualized. IMPRESSION: No active disease in the chest. ACT 112: Negative or not required by law. Electronically signed by: Alessandro Caal M.D. 06/22/2019 2:59 PM ECG Data Attestation: I personally reviewed and interpreted this ECG as follows: Indication: + chest pain Rate (beats per minute): 60 Rhythm: + normal sinus ECG ST segments: no ST depression and no ST elevation ECG Findings: + Other (QTc 410); no PACs and no PVCs Comparison ECG Date: from (10/17/12) Change: no significant change Additional Comments: 1426: Second EKG: normal sinus rhythm, ventricular rate of 72, QTc of 413, ST elevation in the anterolateral leads Blood Pressure Blood Pressure Findings: Elevated blood pressure Blood Pressure Disposition: elevated BP felt to be situational MDM Narrative This is a 58-year-old male who presents emergency department complaining of chest pain. Upon arrival to the emergency department the patient is pain-free however while he was in the emergency department he did develop chest pain and a subsequent EKG was performed. I did discuss this EKG with Dr. Pantoja who is on-call for cardiology who recommended a heart alert. Patient was given aspirin as well as nitroglycerin here in the emergency department. He did receive 2 additional doses of morphine and was loaded with Brilinta. The risks and benefits of a cardiac cath were explained to the patient and his . He was emergently taken to the [facility] by Dr. Casas. Impression & Plan ST elevation (STEMI) myocardial infarction, Chest pain Discharge Plan Visit Data *Final* Discharge Date/Time: 06/22/19 15:06 Chief Complaint: Cardiac Assessment Stated Complaint: CHEST TIGHTNESS, SOB ED Provider: Alfredo Bhat Discharge Problem: ST elevation (STEMI) myocardial infarction, Chest pain Patient Disposition: Still a Patient Discharge Instructions Interventions: ED Discharge Assessment Last Done: 06/22/19 15:06 Discharge Problem: ST elevation (STEMI) myocardial infarction Qualifiers: Involved coronary artery: unspecified coronary artery Qualified Code(s): I21.3 - ST elevation (STEMI) myocardial infarction of unspecified site Chest pain Qualifiers: Chest pain type: unspecified Qualified Code(s): R07.9 - Chest pain, unspecified The scribe's documentation has been prepared under my direction and personally reviewed by me in its entirety. I confirm that the note above accurately reflects all work, treatment, procedures, and medical decision making performed by me.
--- NOTE | 2019-06-22 19:38 | Critical Care Consultation ---
Date of Consultation June 22, 2019 Assessment & Plan (1) Admitted to intensive care unit: Reason Critically Ill: 58-year-old male with acute ST segment elevation myocardial infarction status post PTCA with STEVEN x1 to the LAD requiring close hemodynamic monitoring status post intervention. NEURO - * CAM ICU: NEGATIVE CARDIAC/VASCULAR - * Anterior STEMI s/p PTCA w/ STEVEN x1 to the LAD: * Trend troponins which were elevated on presentation. * ASCVD per typical. * A.m. echocardiogram. * Continue with cardiology recommendations. * EKG: * Initial - NSR@72bpm w/ ST elevations in Anterior/Inferior leads. QTc 413ms. * Post Cath - NSR@60bpm. Improved/resolved ST elevations. QTc 442ms. * Monitor on telemetry. RESPIRATORY - * No h/o respiratory disease. * Saturating well on room air. GI/NUTRITION - * AHA diet. * GERD: continue PPI RENAL/LYTES - * No significant electrolyte derangements. * IVF: NSS@100mL/hr fo ra total of 1000. - * No concerns at this time. ENDO - * No h/o DM or Thyroid Dz * BSGs per unit protocol. ISS --> gtt per unit policy. HEME - * Stable H&H * Monitor for s/s bleeding s/p Heparin/Brilinta dosing. ID - * No concerns for infectious processes at this time. LINES/IV ACCESS - * PIVs x2 DVT PROPHYLAXIS - * Hold on chemoprophylaxis s/p Heparin/Brilinta dosing and w/ anticipation of early ambulation. * SCDs Thank you for allowing us to participate in the care of this patient. Please refer to my attending physician's documentation for any further recommendations. (2) S/P PTCA (percutaneous transluminal coronary angioplasty): (3) S/P drug eluting coronary stent placement: (4) ST elevation (STEMI) myocardial infarction: (5) GERD (gastroesophageal reflux disease): (6) Elevated troponin: History of Present Illness Attending Physician: Ariel Harris MD History of Present Illness Patient is a 58-year-old male with a past medical history limited to GERD who presented to the emergency department today with waxing waning substernal chest pain with radiation to the RIGHT shoulder. He states that he has noticed this pain since approximately Sunday. He states that he had altered his workout this week and felt as though he may have "tweaked" his RIGHT elbow. He had radiation of the pain into his RIGHT shoulder. He notes over the last 24 hours that the pain in the RIGHT shoulder coincided with substernal discomfort. The pain became extremely intense after arrival to the emergency department. Initial EKG demonstrated no significant findings, however repeat EKG with complaints of pain demonstrated an acute ST segment elevation myocardial infarction in the anterior leads. Heart alert was called and the patient was taken emergently to the catheterization suite. Patient underwent successful PTCA with STEVEN x1 to the LAD culprit lesion. He was noted to have non-culprit vessel disease in the OM as well as the RCA. Patient reports being completely chest pain-free since intervention. He has had no discomfort at this time. He offers no complaints. Specifically, the patient denies any headaches, dizziness, lightheadedness, chest pain, palpitations, pleuritic pain, nausea, vomiting, or abdominal pain. Allergies Allergy/AdvReac Type Severity Reaction Status Date / Time fentanyl AdvReac Confusion Verified 06/22/19 15:02 Home Medications Home Medications Medication Instructions Recorded Confirmed Type cetirizine 10 mg tablet 10 mg PO DAILY 01/21/19 06/22/19 History omeprazole 10 mg capsule,delayed 10 mg PO DAILY 01/21/19 06/22/19 History release Patient History Medical History Finger laceration with complication (Acute) Hiatal hernia Idiopathic polyneuropathy (Chronic) Incarcerated umbilical hernia (Acute) Surgical History H/O knee surgery (Resolved) Hx of cataract surgery (Resolved) Family History Father Diabetes Hx of CABG Acute myocardial infarction Diverticulitis Grandfather (Maternal) Acute myocardial infarction Social History Preferred Language: Croatian Communication Ability: Effective Bulb Inspector Required: No Beliefs That Will Affect Care: None marital status: Current Living Situation: Spouse Other Information That Helps Us Care for You: No Feels Safe at Home: Yes Safety Concerns: Feels Safe At This Time Smoking Status: Never smoker Hx Alcohol Use: Yes Alcohol type: hard liquor Hx Substance Use: No Review of Systems Review of Systems: A complete 10 point review of systems was reviewed with the patient with pertinent positives and negatives as per history of present illness. All else were negative. Physical Exam Physical Exam: VITAL SIGNS - Vital signs and nursing notes were reviewed. GENERAL - 58-year-old male appearing his stated age who is in no acute distress. Communicates well with provider and answers questions appropriately. HEAD - NC/AT. EYES - PERRL with EOMI bilaterally. Sclera anicteric. Palpebral conjunctiva pink and moist with no injection noted. EARS - No deformities of external structures noted on gross examination bilaterally. NOSE - Midline and without cyanosis. No epistaxis or purulent drainage noted. Septum midline without deviation or septal hematoma noted. MOUTH/OROPHARYNX - Without perioral cyanosis. Good dentition noted. NECK - Neck with FROM. LUNGS - Chest wall symmetric without accessory muscle use, intercostals retractions, or central cyanosis. Normal vesicular breath sounds CTA B/L. No wheezes, rales, or rhonchi appreciated. CARDIAC - RRR with S1/S2. No murmur, rubs, or gallops appreciated. No reproducible tenderness to palpation appreciated over the anterior chest wall. ABDOMEN - Abdominal contour flat without pulsations or visible masses. BS normoactive all four quadrants. No tenderness, palpable masses, hepatosplenomegaly, or ascites noted. EXTREMITIES - No clubbing or peripheral cyanosis. No pretibial edema present. +3/5 radial and dorsalis pedis pulses palpated throughout. +5/5 strength noted in UE/LE bilaterally. NEUROLOGIC - Cranial nerves II through XII grossly intact. Sensory intact to light touch throughout. PSYCH - A&Ox3 and cooperates fully with examiner. Pt is very pleasant and interacts well with examiner. Results & Data Vital Signs (Past 12 Hours) Vital Signs Temp Pulse Pulse Resp BP BP Pulse Ox 06/22/19 16:57 53 L 17 121/68 93 06/22/19 16:42 58 L 10 L 133/79 96 06/22/19 16:27 58 L 11 L 127/75 97 06/22/19 16:12 36.9 C 56 L 15 121/66 06/22/19 16:10 55 L 01/12/20 16:09 36.9 C 63 16 121/66 95 06/22/19 15:00 60 16 124/71 98 06/22/19 14:56 58 L 16 97 06/22/19 14:55 65 19 135/86 97 06/22/19 14:54 67 23 144/74 H 98 06/22/19 14:51 73 24 98 06/22/19 14:45 71 20 97 06/22/19 14:41 80 17 153/93 H 97 06/22/19 14:40 71 16 97 06/22/19 14:36 76 20 94 06/22/19 14:30 67 18 152/90 H 06/22/19 14:25 81 21 100 06/22/19 14:23 97 06/22/19 14:21 84 17 100 06/22/19 14:15 70 18 95 06/22/19 14:11 62 18 95 06/22/19 14:09 59 L 12 168/89 H 95 06/22/19 14:00 36.4 C L 65 16 169/99 H 97 Coding Level of Care Code 52742 Inpt Consult Level 5 Diagnoses Admitted to intensive care unit Z78.9 S/P PTCA (percutaneous transluminal coronary angioplasty) Z98.61 S/P drug eluting coronary stent placement Z95.5 ST elevation (STEMI) myocardial infarction I21.3 GERD (gastroesophageal reflux disease) K21.9 Elevated troponin R79.89 Time Spent (min) 35
[2019-06-22] MEDS: METOPROLOL TARTRATE 25 MG TAB PO SCH (21:16)
[2019-06-22] MEDS: TICAGRELOR 90 MG TAB PO SCH (21:17)
--- NOTE | 2019-06-22 22:11 | Electrocardiogram Report ---
Test Reason : Blood Pressure : / mmHG Vent. Rate : 060 BPM Atrial Rate : 060 BPM P-R Int : 146 ms QRS Dur : 086 ms QT Int : 442 ms P-R-T Axes : 022 -35 -02 degrees QTc Int : 442 ms Normal sinus rhythm Left axis deviation Nonspecific ST abnormality Abnormal ECG When compared with ECG of 22-JUN-2019 14:26, ST no longer elevated in Anterior leads Confirmed by Itz Pantoja ([id number]) on 06/22/2019 10:13:15 PM Also confirmed by Itz Pantoja ([id number]), advertising editor Mae Lezama ([id number]) on 06/23/2019 8:11:52 AM Referred By: REFERRED SELF Confirmed By:Itz Pantoja
--- NOTE | 2019-06-22 22:13 | Electrocardiogram Report ---
Test Reason : Blood Pressure : / mmHG Vent. Rate : 072 BPM Atrial Rate : 072 BPM P-R Int : 120 ms QRS Dur : 086 ms QT Int : 378 ms P-R-T Axes : -13 -29 054 degrees QTc Int : 413 ms Normal sinus rhythm ST elevation consider anterior injury or acute infarct ACUTE AK / STEMI Abnormal ECG When compared with ECG of 22-JUN-2019 14:03, ST elevation now present in Anterior leads Confirmed by Itz Pantoja ([id number]) on 06/22/2019 10:11:21 PM Also confirmed by Itz Pantoja ([id number]), international editorial producer Mae Lezama ([id number]) on 06/23/2019 8:11:09 AM Also confirmed by Itz Pantoja ([id number]), international editorial producer Mae Lezama ([id number]) on 06/23/2019 8:12:03 AM Referred By: REFERRED SELF Confirmed By:Itz Pantoja
[2019-06-23 04:19] LABS: Basophils # (auto) 0.03 K/uL (0-0.2); Basophils % (auto) 0.4 %; Eosinophils # (auto) 0.18 K/uL (0-0.5); Eosinophils % (auto) 2.6 %; Hematocrit (blood only) 43.4 % (42-52); Hemoglobin 15.1 g/dL (14.0-18.0); Immature Granulocytes # (auto) 0.01 K/uL (0.00-0.02); Immature Granulocytes % (auto) 0.1 %; Lymphocytes # (auto) 1.14 K/uL (1.2-3.4); Lymphocytes % (auto) 16.6 %; Mean Corpuscular Hemoglobin 34.6 pg (25-34); Mean Corpuscular Hgb Conc 34.8 g/dL (32-36); Mean Corpuscular Volume 99.3 fL (80-100); Mean Platelet Volume 10.6 fL (7.4-10.4); Monocytes # (auto) 0.69 K/uL (0.11-0.59); Monocytes % (auto) 10.1 %; Neutrophils % (auto) 70.2 %; Platelet Count 154 K/uL (130-400); RDW Coefficient of Variation 12.2 % (11.5-14.5); RDW Standard Deviation 44.6 fL (36.4-46.3); Red Blood Count 4.37 M/uL (4.7-6.1); White Blood Count 6.85 K/uL (4.8-10.8)
[2019-06-23 04:42] LABS: BUN Creatinine Ratio 11.1 (10-20); Calcium 8.6 mg/dl (8.5-10.1); Creatinine Clr Calc Pharmacy 70.5 ml/min; Est GFR (African American) 71.4; Est GFR (Non-African American) 61.6; Magnesium 1.9 mg/dl (1.8-2.4); Potassium 4.4 mmol/L (3.5-5.1)
[2019-06-23 04:48] LABS: Phosphorus 2.3 mg/dl (2.5-4.9); Troponin I 0.64 ng/ml (0-0.045)
[2019-06-23 06:25] LABS: Estimated Average Glucose 111 mg/dl; Hemoglobin A1C 5.5 % (4.5-5.6)
--- NOTE | 2019-06-23 08:03 | Cardiology Progress Note ---
Date of Service June 23, 2019 Assessment & Plan (1) ST elevation (STEMI) myocardial infarction: (2) S/P drug eluting coronary stent placement: (3) CAD (coronary artery disease): ASSESSMENT/PLAN: 1. STEMI: LAD STEMI s/p PCI. Continue dual antiplately therapy. Continue betablocker, ACEI, and high intensity statin therapy. Cardiac rehab as outpatient. Can be transferred to PCU later today if no issues. Peak troponin was 0.64. 2. CAD s/p PCI: No further angina. Euvolemic on exam. Echo pending. Low level trop elevation; thus hopefully LV systolic function will be normal. Continue medical therapy as above. NTG prn on discharge. 3. Disposition: Can transfer to PCU later today as above. Cardiology will continue to follow. If no significant issues, anticipate discharge tomorrow (48 hrs after STEMI). Will arrange outpatient follow up in the cardiology office in 1-2 weeks. Subjective He was seen earlier this morning at approximately 7:40 a.m.. He has not had any further angina since undergoing mid LAD PCI. He denies chest pain, shortness of breath, syncope, near-syncope, palpitations, edema, or bleeding such as melena, hematochezia, or hematuria. He was alone in his hospital room. Review of systems: As above. Physical Exam Physical Exam: Gen.: NAD. Alert and oriented. HEENT: Anicteric sclera. Neck: No JVD. Cardiac: Regular. Normal S1-S2. No murmurs, rubs, or gallops. Pulmonary: Clear to auscultation bilaterally without wheezes, rales, or rhonchi. Abdomen: Soft, nontender, nondistended, with normoactive bowel sounds. No bruits noted. Extremities: 2+ radial pulses bilaterally. Right radial cath site is clean, dry, and intact without erythema, discharge, or bleeding. No edema or cyanosis. Psychiatric: Affect appears appropriate. Results & Data Vital Signs (Past 12 Hours) Vital Signs Temp Pulse Resp BP Pulse Ox 06/23/19 05:57 36.6 C 62 7 L 101/56 L 97 06/23/19 05:27 57 L 7 L 117/70 96 06/23/19 04:56 55 L 6 L 117/69 96 06/23/19 04:26 56 L 11 L 108/60 93 06/23/19 03:56 36.6 C 57 L 6 L 116/65 94 06/23/19 03:26 55 L 5 L 113/60 93 06/23/19 02:56 55 L 6 L 116/64 94 06/23/19 02:27 58 L 18 111/77 94 06/23/19 01:56 55 L 10 L 109/71 97 06/23/19 01:26 56 L 11 L 117/70 95 06/23/19 00:57 60 13 101/62 96 06/23/19 00:26 58 L 12 103/59 L 94 06/22/19 23:56 36.6 C 54 L 11 L 116/57 L 95 06/22/19 23:26 57 L 9 L 105/63 95 06/22/19 22:56 57 L 12 105/63 95 06/22/19 22:26 55 L 16 121/83 93 06/22/19 21:57 36.5 C 59 L 28 H 128/76 96 06/22/19 21:26 56 L 16 121/72 94 06/22/19 20:56 58 L 25 H 121/71 95 06/22/19 20:12 36.5 C 53 L 21 118/78 95 Laboratory Results Laboratory Results - last 24 hr 06/22/19 06/22/19 06/22/19 14:39 14:39 14:39 WBC 5.72 RBC 4.84 Hgb 16.9 POC Hgb Hct 47.2 POC Hct MCV 97.5 MCH 34.9 H MCHC 35.8 RDW Std Deviation 42.6 RDW Coeff of David 12.0 Plt Count 175 MPV 10.6 H Immature Gran % (Auto) 0.2 Neut % (Auto) 64.5 Lymph % (Auto) 22.2 [place] % (Auto) 11.0 Eos % (Auto) 1.6 Baso % (Auto) 0.5 Immature Gran # (Auto) 0.01 Neut # (Auto) 3.69 Lymph # (Auto) 1.27 [place] # (Auto) 0.63 H Eos # (Auto) 0.09 Baso # (Auto) 0.03 PT INR APTT PTT Ratio Activ Coag Time Kaolin D-Dimer 310 POC Sodium Sodium 142 POC Potassium Potassium 4.2 POC Chloride Chloride 107 Carbon Dioxide 27 POC Total CO2 Anion Gap 8.0 POC Anion Gap POC BUN BUN 15 Creatinine 1.27 POC Creatinine Est Cr Clr Drug Dosing 69.9 Est GFR ( Amer) 70.7 Est GFR (Non-Af Amer) 61.0 BUN/Creatinine Ratio 11.8 Glucose 114 H POC Glucose POC Glucose (other) Estimat Average Glucose Hemoglobin A1c Calcium 9.6 POC Ioniz Calcium Pascale Phosphorus Magnesium Total Bilirubin 0.6 AST 14 L ALT 25 Alkaline Phosphatase 62 Total Creatine Kinase 167 CK-MB (CK-2) 5.8 H CK/CKMB % Calc 3.5 H POC Troponin I Troponin I 0.238 H* Total Protein 7.7 Albumin 4.0 Globulin 3.7 Albumin/Globulin Ratio 1.1 Triglycerides Cholesterol LDL Cholesterol, Calc VLDL Cholesterol, Calc HDL Cholesterol Cholesterol/HDL Ratio Lipase 118 Nasal Screen MRSA (PCR) Hepatitis C Ab Screen 06/22/19 06/22/19 06/22/19 14:39 14:43 14:45 WBC RBC Hgb POC Hgb 16.3 Hct POC Hct 48 MCV MCH MCHC RDW Std Deviation RDW Coeff of David Plt Count MPV Immature Gran % (Auto) Neut % (Auto) Lymph % (Auto) [place] % (Auto) Eos % (Auto) Baso % (Auto) Immature Gran # (Auto) Neut # (Auto) Lymph # (Auto) [place] # (Auto) Eos # (Auto) Baso # (Auto) PT 10.6 INR 1.0 APTT 24.6 PTT Ratio 0.9 Activ Coag Time Kaolin D-Dimer POC Sodium 141 Sodium POC Potassium 4.0 Potassium POC Chloride 106 Chloride Carbon Dioxide POC Total CO2 24 Anion Gap POC Anion Gap 17.0 POC BUN 14 BUN Creatinine POC Creatinine 1.1 Est Cr Clr Drug Dosing Est GFR ( Amer) Est GFR (Non-Af Amer) BUN/Creatinine Ratio Glucose POC Glucose POC Glucose (other) 116 H Estimat Average Glucose Hemoglobin A1c Calcium POC Ioniz Calcium [place]ascale 1.25 Phosphorus Magnesium Total Bilirubin AST ALT Alkaline Phosphatase Total Creatine Kinase CK-MB (CK-2) CK/CKMB % Calc POC Troponin I 0.18 H Troponin I Total Protein Albumin Globulin Albumin/Globulin Ratio Triglycerides Cholesterol LDL Cholesterol, Calc VLDL Cholesterol, Calc HDL Cholesterol Cholesterol/HDL Ratio Lipase Nasal Screen MRSA (PCR) Hepatitis C Ab Screen 06/22/19 06/22/19 06/22/19 15:30 16:20 17:50 WBC RBC Hgb POC Hgb Hct POC Hct MCV MCH MCHC RDW Std Deviation RDW Coeff of David Plt Count MPV Immature Gran % (Auto) Neut % (Auto) Lymph % (Auto) [place] % (Auto) Eos % (Auto) Baso % (Auto) Immature Gran # (Auto) Neut # (Auto) Lymph # (Auto) [place] # (Auto) Eos # (Auto) Baso # (Auto) PT INR APTT PTT Ratio Activ Coag Time Kaolin 252 H D-Dimer POC Sodium Sodium POC Potassium Potassium POC Chloride Chloride Carbon Dioxide POC Total CO2 Anion Gap POC Anion Gap POC BUN BUN Creatinine POC Creatinine Est Cr Clr Drug Dosing Est GFR ( Amer) Est GFR (Non-Af Amer) BUN/Creatinine Ratio Glucose POC Glucose 145 H POC Glucose (other) Estimat Average Glucose Hemoglobin A1c Calcium POC Ioniz Calcium [place]ale Phosphorus Magnesium Total Bilirubin AST ALT Alkaline Phosphatase Total Creatine Kinase CK-MB (CK-2) CK/CKMB % Calc POC Troponin I Troponin I Total Protein Albumin Globulin Albumin/Globulin Ratio Triglycerides Cholesterol LDL Cholesterol, Calc VLDL Cholesterol, Calc HDL Cholesterol Cholesterol/HDL Ratio Lipase Nasal Screen MRSA (PCR) Negative Hepatitis C Ab Screen 06/22/19 06/22/19 06/23/19 21:49 Unknown 00:46 WBC RBC Hgb POC Hgb Hct POC Hct MCV MCH MCHC RDW Std Deviation RDW Coeff of David Plt Count MPV Immature Gran % (Auto) Neut % (Auto) Lymph % (Auto) [place] % (Auto) Eos % (Auto) Baso % (Auto) Immature Gran # (Auto) Neut # (Auto) Lymph # (Auto) [place] # (Auto) Eos # (Auto) Baso # (Auto) PT INR APTT PTT Ratio Activ Coag Time Kaolin D-Dimer POC Sodium Sodium POC Potassium Potassium POC Chloride Chloride Carbon Dioxide POC Total CO2 Anion Gap POC Anion Gap POC BUN BUN Creatinine POC Creatinine Est Cr Clr Drug Dosing Est GFR ( Amer) Est GFR (Non-Af Amer) BUN/Creatinine Ratio Glucose POC Glucose 96 POC Glucose (other) Estimat Average Glucose Hemoglobin A1c Calcium POC Ioniz Calcium [place]ale Phosphorus Magnesium Total Bilirubin AST ALT Alkaline Phosphatase Total Creatine Kinase CK-MB (CK-2) CK/CKMB % Calc POC Troponin I Troponin I 0.415 H* Total Protein Albumin Globulin Albumin/Globulin Ratio Triglycerides Cholesterol LDL Cholesterol, Calc VLDL Cholesterol, Calc HDL Cholesterol Cholesterol/HDL Ratio Lipase Nasal Screen MRSA (PCR) Hepatitis C Ab Screen Neg 06/23/19 06/23/19 06/23/19 04:06 04:06 04:06 WBC 6.85 RBC 4.37 L Hgb 15.1 POC Hgb Hct 43.4 POC Hct MCV 99.3 MCH 34.6 H MCHC 34.8 RDW Std Deviation 44.6 RDW Coeff of David 12.2 Plt Count 154 MPV 10.6 H Immature Gran % (Auto) 0.1 Neut % (Auto) 70.2 Lymph % (Auto) 16.6 [place] % (Auto) 10.1 Eos % (Auto) 2.6 Baso % (Auto) 0.4 Immature Gran # (Auto) 0.01 Neut # (Auto) 4.80 Lymph # (Auto) 1.14 L [place] # (Auto) 0.69 H Eos # (Auto) 0.18 Baso # (Auto) 0.03 PT INR APTT PTT Ratio Activ Coag Time Kaolin D-Dimer POC Sodium Sodium 140 POC Potassium Potassium 4.4 POC Chloride Chloride 109 H Carbon Dioxide 32 POC Total CO2 Anion Gap -1.0 L POC Anion Gap POC BUN BUN 14 Creatinine 1.26 POC Creatinine Est Cr Clr Drug Dosing 70.5 Est GFR ( Amer) 71.4 Est GFR (Non-Af Amer) 61.6 BUN/Creatinine Ratio 11.1 Glucose 94 POC Glucose POC Glucose (other) Estimat Average Glucose 111 Hemoglobin A1c 5.5 Calcium 8.6 POC Ioniz Calcium Pascale Phosphorus 2.3 L Magnesium 1.9 Total Bilirubin AST ALT Alkaline Phosphatase Total Creatine Kinase CK-MB (CK-2) CK/CKMB % Calc POC Troponin I Troponin I 0.640 H* Total Protein Albumin Globulin Albumin/Globulin Ratio Triglycerides 136 Cholesterol 156 LDL Cholesterol, Calc 88 VLDL Cholesterol, Calc 27 HDL Cholesterol 41 Cholesterol/HDL Ratio 4 Lipase Nasal Screen MRSA (PCR) Hepatitis C Ab Screen 06/23/19 10:10 WBC RBC Hgb POC Hgb Hct POC Hct MCV MCH MCHC RDW Std Deviation RDW Coeff of David Plt Count MPV Immature Gran % (Auto) Neut % (Auto) Lymph % (Auto) [place] % (Auto) Eos % (Auto) Baso % (Auto) Immature Gran # (Auto) Neut # (Auto) Lymph # (Auto) [place] # (Auto) Eos # (Auto) Baso # (Auto) PT INR APTT PTT Ratio Activ Coag Time Kaolin D-Dimer POC Sodium Sodium POC Potassium Potassium POC Chloride Chloride Carbon Dioxide POC Total CO2 Anion Gap POC Anion Gap POC BUN BUN Creatinine POC Creatinine Est Cr Clr Drug Dosing Est GFR ( Amer) Est GFR (Non-Af Amer) BUN/Creatinine Ratio Glucose POC Glucose POC Glucose (other) Estimat Average Glucose Hemoglobin A1c Calcium POC Ioniz Calcium [place]ascale Phosphorus Magnesium Total Bilirubin AST ALT Alkaline Phosphatase Total Creatine Kinase CK-MB (CK-2) CK/CKMB % Calc POC Troponin I Troponin I 0.551 H* Total Protein Albumin Globulin Albumin/Globulin Ratio Triglycerides Cholesterol LDL Cholesterol, Calc VLDL Cholesterol, Calc HDL Cholesterol Cholesterol/HDL Ratio Lipase Nasal Screen MRSA (PCR) Hepatitis C Ab Screen Diagnostic Findings Telemetry personally reviewed: Sinus rhythm. No arrhythmia. Echo report reviewed. Echo 06/23/2019: Normal LV size,, wall motion, systolic function. EF 55-60%. Medications Administered Current Inpatient Medications Aspir[facility] ([facility]ab) [facility] [place] Stop: 07/23/19 08:59 Last Admin: 06/23/19 08:48 Dose: 81 mg Documented by: Atorvastatin Calcium (Lipitor) 80 mg PO QAM [facility] Stop: 07/23/19 08:59 Last Admin: 06/23/19 08:49 Dose: 80 mg Documented by: Lisinopril (Zestril) 5 mg PO QAM [facility] Stop: 07/23/19 08:59 Last Admin: 06/23/19 08:50 Dose: 5 mg Documented by: Metoprolol Tartrate (Lopressor) 12.5 mg PO BID [facility] Stop: 07/22/19 20:59 Last Admin: 06/23/19 08:51 Dose: 12.5 mg Documented by: Miscellaneous (Icu Protocol For Hyperglycemia) 1 ea N/A PRN PRN; Protocol PRN Reason: Hyperglycemia Protocol Stop: 06/24/19 16:08 Ondansetron HCl (Zofran) 4 mg IV Q6H PRN PRN Reason: Nausea And Vomiting Stop: 07/22/19 16:04 Pantoprazole Sodium (Protonix) [facility] [place] Stop: 07/23/19 08:59 Last Admin: 06/23/19 08:49 Dose: 40 mg Documented by: Ticagrelor (Brilinta) 90 mg PO BID [facility] Stop: 07/22/19 23:29 Last Admin: 06/23/19 08:48 Dose: 90 mg Documented by: PG Care Time/CCT Total # of Minutes Spent Total Time Spent with Patient: Total time spent is greater than 50% in coordination of care (as documented) at patient's floor/unit and/or counseling patient:
[2019-06-23] MEDS: ASPIRIN 81 MG ECTAB PO SCH (08:48)
[2019-06-23] MEDS: TICAGRELOR 90 MG TAB PO SCH ×2 (08:48→20:48)
[2019-06-23] MEDS: ATORVASTATIN 40 MG TAB PO SCH (08:49)
[2019-06-23] MEDS: PANTOprazole 40 MG TAB PO SCH (08:49)
[2019-06-23] MEDS: lisinopriL 5 MG TAB PO SCH (08:50)
[2019-06-23] MEDS: METOPROLOL TARTRATE 25 MG TAB PO SCH ×2 (08:51→20:48)
--- NOTE | 2019-06-23 09:54 | Electrocardiogram Report ---
Test Reason : Blood Pressure : / mmHG Vent. Rate : 060 BPM Atrial Rate : 060 BPM P-R Int : 136 ms QRS Dur : 088 ms QT Int : 410 ms P-R-T Axes : 005 -24 019 degrees QTc Int : 410 ms Normal sinus rhythm Nonspecific ST abnormality Abnormal ECG When compared with ECG of 17-OCT-2012 12:29, Nonspecific ST abnormality now present (minor inferior ST elevation, minor anterior ST depression) Confirmed by Tera Austin ([id number] on 06/23/2019 9:53:53 AM Referred By: REFERRED SELF Confirmed By:Tera Austin
--- NOTE | 2019-06-23 10:05 | Critical Care Progress Note ---
Date of Service June 23, 2019 Assessment & Plan (1) Admitted to intensive care unit: Reason Critically Ill: 58-year-old male with acute ST segment elevation myocardial infarction status post PTCA with STEVEN x1 to the LAD requiring close hemodynamic monitoring status post intervention. NEURO - * CAM ICU: NEGATIVE CARDIAC/VASCULAR - * Anterior STEMI s/p PTCA w/ STEVEN x1 to the LAD: * Echocardiogram reviewed * EKG: * Initial - NSR@72bpm w/ ST elevations in Anterior/Inferior leads. QTc 413ms. * Post Cath - NSR@60bpm. Improved/resolved ST elevations. QTc 442ms. * Monitor on telemetry. RESPIRATORY - * No h/o respiratory disease. * Saturating well on room air. GI/NUTRITION - * AHA diet. * GERD: continue PPI RENAL/LYTES - * No significant electrolyte derangements. * Discontinue fluids - * No concerns at this time. ENDO - * No h/o DM or Thyroid Dz * BSGs per unit protocol. ISS --> gtt per unit policy. HEME - * Stable H&H * Monitor for s/s bleeding s/p Heparin/Brilinta dosing. ID - * No concerns for infectious processes at this time. LINES/IV ACCESS - * PIVs x2 DVT PROPHYLAXIS - * Hold on chemoprophylaxis s/p Heparin/Brilinta dosing and w/ anticipation of early ambulation. * SCDs Patient is stable for downgrade out of ICU. (2) S/P PTCA (percutaneous transluminal coronary angioplasty): (3) S/P drug eluting coronary stent placement: (4) ST elevation (STEMI) myocardial infarction: (5) GERD (gastroesophageal reflux disease): (6) Elevated troponin: Subjective Patient denies chest pain, shortness of breath. Feels well. Review of Systems Review of Systems: No chest pain, no shortness of breath, no easy bruising Physical Exam Physical Exam: General: Alert. nontoxic. Skin: Warm, dry, Head: Atraumatic Ears, nose, mouth and throat: airway patent Cardiovascular: Normal peripheral perfusion Respiratory: no respiratory distress Gastrointestinal: Non distended Musculoskeletal: No deformity Results & Data Vital Signs (Past 12 Hours) Vital Signs Temp Pulse Resp BP Pulse Ox 06/23/19 09:00 68 17 94 06/23/19 08:57 68 8 L 150/80 H 94 06/23/19 08:27 37 C 77 17 137/77 95 06/23/19 08:00 71 16 94 06/23/19 07:57 69 17 100/86 95 06/23/19 07:28 75 28 H 152/90 H 96 06/23/19 07:00 56 L 13 97 06/23/19 05:57 36.6 C 62 7 L 101/56 L 97 06/23/19 05:27 57 L 7 L 117/70 96 06/23/19 04:56 55 L 6 L 117/69 96 06/23/19 04:26 56 L 11 L 108/60 93 06/23/19 03:56 36.6 C 57 L 6 L 116/65 94 06/23/19 03:26 55 L 5 L 113/60 93 06/23/19 02:56 55 L 6 L 116/64 94 06/23/19 02:27 58 L 18 111/77 94 06/23/19 01:56 55 L 10 L 109/71 97 06/23/19 01:26 56 L 11 L 117/70 95 06/23/19 00:57 60 13 101/62 96 06/23/19 00:26 58 L 12 103/59 L 94 06/22/19 23:56 36.6 C 54 L 11 L 116/57 L 95 06/22/19 23:26 57 L 9 L 105/63 95 06/22/19 22:56 57 L 12 105/63 95 06/22/19 22:26 55 L 16 121/83 93 Laboratory Results 06/23/19 06/23/19 06/23/19 Range/Units 10:10 04:06 04:06 WBC 6.85 (4.8-10.8) K/uL RBC 4.37 L (4.7-6.1) M/uL Hgb 15.1 (14.0-18.0) g/dL POC Hgb (14.0-18.0) g/dl Hct 43.4 (42-52) % POC Hct (42-52) % MCV 99.3 (80-100) fL MCH 34.6 H (25-34) pg MCHC 34.8 (32-36) g/dL RDW Std Deviation 44.6 (36.4-46.3) fL RDW Coeff of David 12.2 (11.5-14.5) % Plt Count 154 (130-400) K/uL MPV 10.6 H (7.4-10.4) fL Immature Gran % (Auto) 0.1 % Neut % (Auto) 70.2 % Lymph % (Auto) 16.6 % Eagle % (Auto) 10.1 % Eos % (Auto) 2.6 % Baso % (Auto) 0.4 % Immature Gran # (Auto) 0.01 (0.00-0.02) K/uL Neut # (Auto) 4.80 (1.4-6.5) K/uL Lymph # (Auto) 1.14 L (1.2-3.4) K/uL Eagle # (Auto) 0.69 H (0.11-0.59) K/uL Eos # (Auto) 0.18 (0-0.5) K/uL Baso # (Auto) 0.03 (0-0.2) K/uL POC Sodium (135-144) mEq/L Sodium (136-145) mmol/L POC Potassium (3.3-5.0) mEq/L Potassium (3.5-5.1) mmol/L POC Chloride (101-112) mEq/L Chloride (98-107) mmol/L Carbon Dioxide (21-32) mmol/L POC Total CO2 (24-31) mEq/l Anion Gap (3-11) POC Anion Gap (16-25) mmol/L POC BUN (7-18) mg/dl BUN (7-18) mg/dl Creatinine (0.6-1.4) mg/dl POC Creatinine (0.6-1.3) mg/dl Est Cr Clr Drug Dosing ml/min Est GFR ( Amer) Est GFR (Non-Af Amer) BUN/Creatinine Ratio (10-20) Glucose (70-99) mg/dl POC Glucose (70-99) POC Glucose (other) (70-99) mg/dl Estimat Average Glucose 111 mg/dl Hemoglobin A1c 5.5 (4.5-5.6) % Calcium (8.5-10.1) mg/dl POC Ioniz Calcium Pascale (1.12-1.32) mmol/l Phosphorus (2.5-4.9) mg/dl Magnesium (1.8-2.4) mg/dl Troponin I 0.551 H* (0-0.045) ng/ml Triglycerides (0-150) mg/dl Cholesterol (0-200) mg/dl LDL Cholesterol, Calc mg/dl VLDL Cholesterol, Calc mg/dl HDL Cholesterol mg/dl Cholesterol/HDL Ratio 06/23/19 06/23/19 06/22/19 Range/Units 04:06 00:46 21:49 WBC (4.8-10.8) K/uL RBC (4.7-6.1) M/uL Hgb (14.0-18.0) g/dL POC Hgb (14.0-18.0) g/dl Hct (42-52) % POC Hct (42-52) % MCV (80-100) fL MCH (25-34) pg MCHC (32-36) g/dL RDW Std Deviation (36.4-46.3) fL RDW Coeff of David (11.5-14.5) % Plt Count (130-400) K/uL MPV (7.4-10.4) fL Immature Gran % (Auto) % Neut % (Auto) % Lymph % (Auto) % Eagle % (Auto) % Eos % (Auto) % Baso % (Auto) % Immature Gran # (Auto) (0.00-0.02) K/uL Neut # (Auto) (1.4-6.5) K/uL Lymph # (Auto) (1.2-3.4) K/uL Eagle # (Auto) (0.11-0.59) K/uL Eos # (Auto) (0-0.5) K/uL Baso # (Auto) (0-0.2) K/uL POC Sodium (135-144) mEq/L Sodium 140 (136-145) mmol/L POC Potassium (3.3-5.0) mEq/L Potassium 4.4 (3.5-5.1) mmol/L POC Chloride (101-112) mEq/L Chloride 109 H (98-107) mmol/L Carbon Dioxide 32 (21-32) mmol/L POC Total CO2 (24-31) mEq/l Anion Gap -1.0 L (3-11) POC Anion Gap (16-25) mmol/L POC BUN (7-18) mg/dl BUN 14 (7-18) mg/dl Creatinine 1.26 (0.6-1.4) mg/dl POC Creatinine (0.6-1.3) mg/dl Est Cr Clr Drug Dosing 70.5 ml/min Est GFR ( Amer) 71.4 Est GFR (Non-Af Amer) 61.6 BUN/Creatinine Ratio 11.1 (10-20) Glucose 94 (70-99) mg/dl POC Glucose 96 (70-99) POC Glucose (other) (70-99) mg/dl Estimat Average Glucose mg/dl Hemoglobin A1c (4.5-5.6) % Calcium 8.6 (8.5-10.1) mg/dl POC Ioniz Calcium Pascale (1.12-1.32) mmol/l Phosphorus 2.3 L (2.5-4.9) mg/dl Magnesium 1.9 (1.8-2.4) mg/dl Troponin I 0.640 H* 0.415 H* (0-0.045) ng/ml Triglycerides 136 (0-150) mg/dl Cholesterol 156 (0-200) mg/dl LDL Cholesterol, Calc 88 mg/dl VLDL Cholesterol, Calc 27 mg/dl HDL Cholesterol 41 mg/dl Cholesterol/HDL Ratio 4 06/22/19 Range/Units 14:45 WBC (4.8-10.8) K/uL RBC (4.7-6.1) M/uL Hgb (14.0-18.0) g/dL POC Hgb 16.3 (14.0-18.0) g/dl Hct (42-52) % POC Hct 48 (42-52) % MCV (80-100) fL MCH (25-34) pg MCHC (32-36) g/dL RDW Std Deviation (36.4-46.3) fL RDW Coeff of David (11.5-14.5) % Plt Count (130-400) K/uL MPV (7.4-10.4) fL Immature Gran % (Auto) % Neut % (Auto) % Lymph % (Auto) % Eagle % (Auto) % Eos % (Auto) % Baso % (Auto) % Immature Gran # (Auto) (0.00-0.02) K/uL Neut # (Auto) (1.4-6.5) K/uL Lymph # (Auto) (1.2-3.4) K/uL Eagle # (Auto) (0.11-0.59) K/uL Eos # (Auto) (0-0.5) K/uL Baso # (Auto) (0-0.2) K/uL POC Sodium 141 (135-144) mEq/L Sodium (136-145) mmol/L POC Potassium 4.0 (3.3-5.0) mEq/L Potassium (3.5-5.1) mmol/L POC Chloride 106 (101-112) mEq/L Chloride (98-107) mmol/L Carbon Dioxide (21-32) mmol/L POC Total CO2 24 (24-31) mEq/l Anion Gap (3-11) POC Anion Gap 17.0 (16-25) mmol/L POC BUN 14 (7-18) mg/dl BUN (7-18) mg/dl Creatinine (0.6-1.4) mg/dl POC Creatinine 1.1 (0.6-1.3) mg/dl Est Cr Clr Drug Dosing ml/min Est GFR ( Amer) Est GFR (Non-Af Amer) BUN/Creatinine Ratio (10-20) Glucose (70-99) mg/dl POC Glucose (70-99) POC Glucose (other) 116 H (70-99) mg/dl Estimat Average Glucose mg/dl Hemoglobin A1c (4.5-5.6) % Calcium (8.5-10.1) mg/dl POC Ioniz Calcium Pascale 1.25 (1.12-1.32) mmol/l Phosphorus (2.5-4.9) mg/dl Magnesium (1.8-2.4) mg/dl Troponin I (0-0.045) ng/ml Triglycerides (0-150) mg/dl Cholesterol (0-200) mg/dl LDL Cholesterol, Calc mg/dl VLDL Cholesterol, Calc mg/dl HDL Cholesterol mg/dl Cholesterol/HDL Ratio Coding Level of Care Code 14426 Subseq Hosp Care Lvl 1 Diagnoses Admitted to intensive care unit Z78.9 S/P PTCA (percutaneous transluminal coronary angioplasty) Z98.61 S/P drug eluting coronary stent placement Z95.5 ST elevation (STEMI) myocardial infarction I21.3 GERD (gastroesophageal reflux disease) K21.9 Elevated troponin R79.89
[2019-06-23 10:27] LABS: iSTAT Creatinine 1.1 mg/dl (0.6-1.3); iSTAT Hemoglobin 16.3 g/dl (14.0-18.0); iSTAT Ionized Calcium 1.25 mmol/l (1.12-1.32)
--- NOTE | 2019-06-23 14:54 | Hospitalist Progress Note ---
Date of Service June 23, 2019 Assessment & Plan (1) ST elevation (STEMI) myocardial infarction: - S/p cardiac cath on 06/22/19; anterior STEMI with 99% early-mid LAD stenosis with placement of STEVEN x 1. - Continue dual anti-platelet therapy for at least 1 year. - Metoprolol tartrate 12.5 mg BID and Lisinopril 5 mg qAM. - Atorvastatin 80 mg qAM; lipid panel showed LDL 88, HDL 41 and total chol 156. - Echo with EF 55-60%, borderline LVH and no wall motion abnormalities. - Downgrade to PCU; can likely be discharged to home on Sunday06/24/19. - Consulted cardiac rehab; f/u outpatient cardiology in 1-2 weeks. (2) CAD (coronary artery disease): - As noted above. - Continue cardiac meds at discharge. (3) Elevated troponin: - Trop currently peaked at 0.6, now trending down. (4) GERD (gastroesophageal reflux disease): - Continue PPI. (5) DVT prophylaxis: - ASA & Brilinta. Dispo: Downgrade to PCU, discharge likely on Sunday. Supervising Physician Co-Signing Physician Notes I have seen and examined patient followed by Eileen Morataya PA-C and agree with the assessment and plan. My exam: General: Resting comfortably, s/p cath HEENT: PERRLA with EOMI; Neck: Supple and nontender Cardiac: RRR Lungs: CTA bilaterally Abdomen: Bowel normoactive X 4; Nontender to palpation Extremities: Warm. No edema present Neuro: No focal weakness Skin: No rash Subjective Chest pain is now resolved. Denies shortness of breath, N/V, abd pain. Will downgrade to PCU/tele this afternoon. Review of Systems Review of Systems: All systems reviewed & are unremarkable except as noted in HPI & below Constitutional: no fever, no chills, no fatigue and no weakness Respiratory: no cough, no dyspnea and no dyspnea on exertion Cardiovascular: no chest pain, no chest pain at rest, no chest pain with activity, no radiating jaw, neck or arm pain, no palpitations and no edema Gastrointestinal: no abdominal pain, no nausea, no vomiting, no constipation and no diarrhea/loose stools Genitourinary: no difficulty urinating Musculoskeletal: no back pain and no joint pain Integumentary: no non-healing lesions Physical Exam Physical Exam: General: Resting comfortably HEENT: NC/AT; PERRLA with EOMI; [place] conjunctiva, MMM. No erythema of posterior pharynx Neck: Supple and nontender Cardiac: RRR Lungs: CTA bilaterally Abdomen: Bowel normoactive X 4; Nontender to palpation Extremities: Warm. No edema present Neuro: No focal weakness Skin: No rash Results & Data Vital Signs (Past 12 Hours) Vital Signs Temp Pulse Resp BP Pulse Ox 06/23/19 14:00 61 14 93 06/23/19 13:57 60 13 135/74 93 06/23/19 13:30 61 17 93 06/23/19 13:27 64 14 142/72 H 94 06/23/19 13:00 70 20 95 06/23/19 12:58 65 22 96 06/23/19 12:57 69 25 H 145/81 H 95 06/23/19 12:27 64 24 147/72 H 94 06/23/19 12:00 36.8 C 62 17 93 06/23/19 11:57 58 L 13 154/75 H 96 06/23/19 11:27 60 17 139/83 95 06/23/19 11:00 59 L 13 94 06/23/19 10:57 62 15 137/84 94 06/23/19 10:27 76 19 143/60 H 95 06/23/19 10:00 67 17 91 06/23/19 09:57 67 17 135/78 94 06/23/19 09:27 72 14 133/79 93 06/23/19 09:00 68 17 94 06/23/19 08:57 68 8 L 150/80 H 94 06/23/19 08:27 37 C 77 17 137/77 95 06/23/19 08:00 71 16 94 06/23/19 07:57 69 17 100/86 95 06/23/19 07:28 75 28 H 152/90 H 96 06/23/19 07:00 56 L 13 97 06/23/19 05:57 36.6 C 62 7 L 101/56 L 97 06/23/19 05:27 57 L 7 L 117/70 96 06/23/19 04:56 55 L 6 L 117/69 96 06/23/19 04:26 56 L 11 L 108/60 93 06/23/19 03:56 36.6 C 57 L 6 L 116/65 94 06/23/19 03:26 55 L 5 L 113/60 93 06/23/19 02:56 55 L 6 L 116/64 94 Laboratory Results 06/23/19 06/23/19 06/23/19 Range/Units 10:10 04:06 04:06 WBC 6.85 (4.8-10.8) K/uL RBC 4.37 L (4.7-6.1) M/uL Hgb 15.1 (14.0-18.0) g/dL POC Hgb (14.0-18.0) g/dl Hct 43.4 (42-52) % POC Hct (42-52) % MCV 99.3 (80-100) fL MCH 34.6 H (25-34) pg MCHC 34.8 (32-36) g/dL RDW Std Deviation 44.6 (36.4-46.3) fL RDW Coeff of David 12.2 (11.5-14.5) % Plt Count 154 (130-400) K/uL MPV 10.6 H (7.4-10.4) fL Immature Gran % (Auto) 0.1 % Neut % (Auto) 70.2 % Lymph % (Auto) 16.6 % [place] % (Auto) 10.1 % Eos % (Auto) 2.6 % Baso % (Auto) 0.4 % Immature Gran # (Auto) 0.01 (0.00-0.02) K/uL Neut # (Auto) 4.80 (1.4-6.5) K/uL Lymph # (Auto) 1.14 L (1.2-3.4) K/uL [place] # (Auto) 0.69 H (0.11-0.59) K/uL Eos # (Auto) 0.18 (0-0.5) K/uL Baso # (Auto) 0.03 (0-0.2) K/uL PT (9.0-12.0) Seconds INR (0.9-1.1) APTT (21.0-31.0) Seconds PTT Ratio Activ Coag Time Kaolin (94-140) SECONDS D-Dimer (0-500) ug/L FEU POC Sodium (135-144) mEq/L Sodium (136-145) mmol/L POC Potassium (3.3-5.0) mEq/L Potassium (3.5-5.1) mmol/L POC Chloride (101-112) mEq/L Chloride (98-107) mmol/L Carbon Dioxide (21-32) mmol/L POC Total CO2 (24-31) mEq/l Anion Gap (3-11) POC Anion Gap (16-25) mmol/L POC BUN (7-18) mg/dl BUN (7-18) mg/dl Creatinine (0.6-1.4) mg/dl POC Creatinine (0.6-1.3) mg/dl Est Cr Clr Drug Dosing ml/min Est GFR ( Amer) Est GFR (Non-Af Amer) BUN/Creatinine Ratio (10-20) Glucose (70-99) mg/dl POC Glucose (70-99) POC Glucose (other) (70-99) mg/dl Estimat Average Glucose 111 mg/dl Hemoglobin A1c 5.5 (4.5-5.6) % Calcium (8.5-10.1) mg/dl POC Ioniz Calcium Pascale (1.12-1.32) mmol/l Phosphorus (2.5-4.9) mg/dl Magnesium (1.8-2.4) mg/dl Total Bilirubin (0.2-1) mg/dl AST (15-37) U/L ALT (12-78) U/L Alkaline Phosphatase (45-117) U/L Total Creatine Kinase (39-308) U/L CK-MB (CK-2) (0.5-3.6) ng/ml CK/CKMB % Calc (0-3.0) POC Troponin I (0-0.045) ng/ml Troponin I 0.551 H* (0-0.045) ng/ml Total Protein (6.4-8.2) gm/dl Albumin (3.4-5.0) gm/dl Globulin (2.5-4.0) gm/dl Albumin/Globulin Ratio (0.9-2) Triglycerides (0-150) mg/dl Cholesterol (0-200) mg/dl LDL Cholesterol, Calc mg/dl VLDL Cholesterol, Calc mg/dl HDL Cholesterol mg/dl Cholesterol/HDL Ratio Lipase (73-393) U/L Nasal Screen MRSA (PCR) (Negative) Hepatitis C Ab Screen (Neg) 06/23/19 06/23/19 06/22/19 Range/Units 04:06 00:46 Unknown WBC (4.8-10.8) K/uL RBC (4.7-6.1) M/uL Hgb (14.0-18.0) g/dL POC Hgb (14.0-18.0) g/dl Hct (42-52) % POC Hct (42-52) % MCV (80-100) fL MCH (25-34) pg MCHC (32-36) g/dL RDW Std Deviation (36.4-46.3) fL RDW Coeff of David (11.5-14.5) % Plt Count (130-400) K/uL MPV (7.4-10.4) fL Immature Gran % (Auto) % Neut % (Auto) % Lymph % (Auto) % [place] % (Auto) % Eos % (Auto) % Baso % (Auto) % Immature Gran # (Auto) (0.00-0.02) K/uL Neut # (Auto) (1.4-6.5) K/uL Lymph # (Auto) (1.2-3.4) K/uL [place] # (Auto) (0.11-0.59) K/uL Eos # (Auto) (0-0.5) K/uL Baso # (Auto) (0-0.2) K/uL PT (9.0-12.0) Seconds INR (0.9-1.1) APTT (21.0-31.0) Seconds PTT Ratio Activ Coag Time Kaolin (94-140) SECONDS D-Dimer (0-500) ug/L FEU POC Sodium (135-144) mEq/L Sodium 140 (136-145) mmol/L POC Potassium (3.3-5.0) mEq/L Potassium 4.4 (3.5-5.1) mmol/L POC Chloride (101-112) mEq/L Chloride 109 H (98-107) mmol/L Carbon Dioxide 32 (21-32) mmol/L POC Total CO2 (24-31) mEq/l Anion Gap -1.0 L (3-11) POC Anion Gap (16-25) mmol/L POC BUN (7-18) mg/dl BUN 14 (7-18) mg/dl Creatinine 1.26 (0.6-1.4) mg/dl POC Creatinine (0.6-1.3) mg/dl Est Cr Clr Drug Dosing 70.5 ml/min Est GFR ( Amer) 71.4 Est GFR (Non-Af Amer) 61.6 BUN/Creatinine Ratio 11.1 (10-20) Glucose 94 (70-99) mg/dl POC Glucose 96 (70-99) POC Glucose (other) (70-99) mg/dl Estimat Average Glucose mg/dl Hemoglobin A1c (4.5-5.6) % Calcium 8.6 (8.5-10.1) mg/dl POC Ioniz Calcium Pascale (1.12-1.32) mmol/l Phosphorus 2.3 L (2.5-4.9) mg/dl Magnesium 1.9 (1.8-2.4) mg/dl Total Bilirubin (0.2-1) mg/dl AST (15-37) U/L ALT (12-78) U/L Alkaline Phosphatase (45-117) U/L Total Creatine Kinase (39-308) U/L CK-MB (CK-2) (0.5-3.6) ng/ml CK/CKMB % Calc (0-3.0) POC Troponin I (0-0.045) ng/ml Troponin I 0.640 H* (0-0.045) ng/ml Total Protein (6.4-8.2) gm/dl Albumin (3.4-5.0) gm/dl Globulin (2.5-4.0) gm/dl Albumin/Globulin Ratio (0.9-2) Triglycerides 136 (0-150) mg/dl Cholesterol 156 (0-200) mg/dl LDL Cholesterol, Calc 88 mg/dl VLDL Cholesterol, Calc 27 mg/dl HDL Cholesterol 41 mg/dl Cholesterol/HDL Ratio 4 Lipase (73-393) U/L Nasal Screen MRSA (PCR) (Negative) Hepatitis C Ab Screen Neg (Neg) 06/22/19 06/22/19 06/22/19 Range/Units 21:49 17:50 16:20 WBC (4.8-10.8) K/uL RBC (4.7-6.1) M/uL Hgb (14.0-18.0) g/dL POC Hgb (14.0-18.0) g/dl Hct (42-52) % POC Hct (42-52) % MCV (80-100) fL MCH (25-34) pg MCHC (32-36) g/dL RDW Std Deviation (36.4-46.3) fL RDW Coeff of David (11.5-14.5) % Plt Count (130-400) K/uL MPV (7.4-10.4) fL Immature Gran % (Auto) % Neut % (Auto) % Lymph % (Auto) % [place] % (Auto) % Eos % (Auto) % Baso % (Auto) % Immature Gran # (Auto) (0.00-0.02) K/uL Neut # (Auto) (1.4-6.5) K/uL Lymph # (Auto) (1.2-3.4) K/uL [place] # (Auto) (0.11-0.59) K/uL Eos # (Auto) (0-0.5) K/uL Baso # (Auto) (0-0.2) K/uL PT (9.0-12.0) Seconds INR (0.9-1.1) APTT (21.0-31.0) Seconds PTT Ratio Activ Coag Time Kaolin (94-140) SECONDS D-Dimer (0-500) ug/L FEU POC Sodium (135-144) mEq/L Sodium (136-145) mmol/L POC Potassium (3.3-5.0) mEq/L Potassium (3.5-5.1) mmol/L POC Chloride (101-112) mEq/L Chloride (98-107) mmol/L Carbon Dioxide (21-32) mmol/L POC Total CO2 (24-31) mEq/l Anion Gap (3-11) POC Anion Gap (16-25) mmol/L POC BUN (7-18) mg/dl BUN (7-18) mg/dl Creatinine (0.6-1.4) mg/dl POC Creatinine (0.6-1.3) mg/dl Est Cr Clr Drug Dosing ml/min Est GFR ( Amer) Est GFR (Non-Af Amer) BUN/Creatinine Ratio (10-20) Glucose (70-99) mg/dl POC Glucose 145 H (70-99) POC Glucose (other) (70-99) mg/dl Estimat Average Glucose mg/dl Hemoglobin A1c (4.5-5.6) % Calcium (8.5-10.1) mg/dl POC Ioniz Calcium Pascale (1.12-1.32) mmol/l Phosphorus (2.5-4.9) mg/dl Magnesium (1.8-2.4) mg/dl Total Bilirubin (0.2-1) mg/dl AST (15-37) U/L ALT (12-78) U/L Alkaline Phosphatase (45-117) U/L Total Creatine Kinase (39-308) U/L CK-MB (CK-2) (0.5-3.6) ng/ml CK/CKMB % Calc (0-3.0) POC Troponin I (0-0.045) ng/ml Troponin I 0.415 H* (0-0.045) ng/ml Total Protein (6.4-8.2) gm/dl Albumin (3.4-5.0) gm/dl Globulin (2.5-4.0) gm/dl Albumin/Globulin Ratio (0.9-2) Triglycerides (0-150) mg/dl Cholesterol (0-200) mg/dl LDL Cholesterol, Calc mg/dl VLDL Cholesterol, Calc mg/dl HDL Cholesterol mg/dl Cholesterol/HDL Ratio Lipase (73-393) U/L Nasal Screen MRSA (PCR) Negative (Negative) Hepatitis C Ab Screen (Neg) 06/22/19 06/22/19 06/22/19 Range/Units 15:30 14:45 14:43 WBC (4.8-10.8) K/uL RBC (4.7-6.1) M/uL Hgb (14.0-18.0) g/dL POC Hgb 16.3 (14.0-18.0) g/dl Hct (42-52) % POC Hct 48 (42-52) % MCV (80-100) fL MCH (25-34) pg MCHC (32-36) g/dL RDW Std Deviation (36.4-46.3) fL RDW Coeff of David (11.5-14.5) % Plt Count (130-400) K/uL MPV (7.4-10.4) fL Immature Gran % (Auto) % Neut % (Auto) % Lymph % (Auto) % [place] % (Auto) % Eos % (Auto) % Baso % (Auto) % Immature Gran # (Auto) (0.00-0.02) K/uL Neut # (Auto) (1.4-6.5) K/uL Lymph # (Auto) (1.2-3.4) K/uL [place] # (Auto) (0.11-0.59) K/uL Eos # (Auto) (0-0.5) K/uL Baso # (Auto) (0-0.2) K/uL PT (9.0-12.0) Seconds INR (0.9-1.1) APTT (21.0-31.0) Seconds PTT Ratio Activ Coag Time Kaolin 252 H (94-140) SECONDS D-Dimer (0-500) ug/L FEU POC Sodium 141 (135-144) mEq/L Sodium (136-145) mmol/L POC Potassium 4.0 (3.3-5.0) mEq/L Potassium (3.5-5.1) mmol/L POC Chloride 106 (101-112) mEq/L Chloride (98-107) mmol/L Carbon Dioxide (21-32) mmol/L POC Total CO2 24 (24-31) mEq/l Anion Gap (3-11) POC Anion Gap 17.0 (16-25) mmol/L POC BUN 14 (7-18) mg/dl BUN (7-18) mg/dl Creatinine (0.6-1.4) mg/dl POC Creatinine 1.1 (0.6-1.3) mg/dl Est Cr Clr Drug Dosing ml/min Est GFR ( Amer) Est GFR (Non-Af Amer) BUN/Creatinine Ratio (10-20) Glucose (70-99) mg/dl POC Glucose (70-99) POC Glucose (other) 116 H (70-99) mg/dl Estimat Average Glucose mg/dl Hemoglobin A1c (4.5-5.6) % Calcium (8.5-10.1) mg/dl POC Ioniz Calcium Pascale 1.25 (1.12-1.32) mmol/l Phosphorus (2.5-4.9) mg/dl Magnesium (1.8-2.4) mg/dl Total Bilirubin (0.2-1) mg/dl AST (15-37) U/L ALT (12-78) U/L Alkaline Phosphatase (45-117) U/L Total Creatine Kinase (39-308) U/L CK-MB (CK-2) (0.5-3.6) ng/ml CK/CKMB % Calc (0-3.0) POC Troponin I 0.18 H (0-0.045) ng/ml Troponin I (0-0.045) ng/ml Total Protein (6.4-8.2) gm/dl Albumin (3.4-5.0) gm/dl Globulin (2.5-4.0) gm/dl Albumin/Globulin Ratio (0.9-2) Triglycerides (0-150) mg/dl Cholesterol (0-200) mg/dl LDL Cholesterol, Calc mg/dl VLDL Cholesterol, Calc mg/dl HDL Cholesterol mg/dl Cholesterol/HDL Ratio Lipase (73-393) U/L Nasal Screen MRSA (PCR) (Negative) Hepatitis C Ab Screen (Neg) 06/22/19 06/22/19 06/22/19 Range/Units 14:39 14:39 14:39 WBC (4.8-10.8) K/uL RBC (4.7-6.1) M/uL Hgb (14.0-18.0) g/dL POC Hgb (14.0-18.0) g/dl Hct (42-52) % POC Hct (42-52) % MCV (80-100) fL MCH (25-34) pg MCHC (32-36) g/dL RDW Std Deviation (36.4-46.3) fL RDW Coeff of David (11.5-14.5) % Plt Count (130-400) K/uL MPV (7.4-10.4) fL Immature Gran % (Auto) % Neut % (Auto) % Lymph % (Auto) % [place] % (Auto) % Eos % (Auto) % Baso % (Auto) % Immature Gran # (Auto) (0.00-0.02) K/uL Neut # (Auto) (1.4-6.5) K/uL Lymph # (Auto) (1.2-3.4) K/uL [place] # (Auto) (0.11-0.59) K/uL Eos # (Auto) (0-0.5) K/uL Baso # (Auto) (0-0.2) K/uL PT 10.6 (9.0-12.0) Seconds INR 1.0 (0.9-1.1) APTT 24.6 (21.0-31.0) Seconds PTT Ratio 0.9 Activ Coag Time Kaolin (94-140) SECONDS D-Dimer 310 (0-500) ug/L FEU POC Sodium (135-144) mEq/L Sodium 142 (136-145) mmol/L POC Potassium (3.3-5.0) mEq/L Potassium 4.2 (3.5-5.1) mmol/L POC Chloride (101-112) mEq/L Chloride 107 (98-107) mmol/L Carbon Dioxide 27 (21-32) mmol/L POC Total CO2 (24-31) mEq/l Anion Gap 8.0 (3-11) POC Anion Gap (16-25) mmol/L POC BUN (7-18) mg/dl BUN 15 (7-18) mg/dl Creatinine 1.27 (0.6-1.4) mg/dl POC Creatinine (0.6-1.3) mg/dl Est Cr Clr Drug Dosing 69.9 ml/min Est GFR ( Amer) 70.7 Est GFR (Non-Af Amer) 61.0 BUN/Creatinine Ratio 11.8 (10-20) Glucose 114 H (70-99) mg/dl POC Glucose (70-99) POC Glucose (other) (70-99) mg/dl Estimat Average Glucose mg/dl Hemoglobin A1c (4.5-5.6) % Calcium 9.6 (8.5-10.1) mg/dl POC Ioniz Calcium Pascale (1.12-1.32) mmol/l Phosphorus (2.5-4.9) mg/dl Magnesium (1.8-2.4) mg/dl Total Bilirubin 0.6 (0.2-1) mg/dl AST 14 L (15-37) U/L ALT 25 (12-78) U/L Alkaline Phosphatase 62 (45-117) U/L Total Creatine Kinase 167 (39-308) U/L CK-MB (CK-2) 5.8 H (0.5-3.6) ng/ml CK/CKMB % Calc 3.5 H (0-3.0) POC Troponin I (0-0.045) ng/ml Troponin I 0.238 H* (0-0.045) ng/ml Total Protein 7.7 (6.4-8.2) gm/dl Albumin 4.0 (3.4-5.0) gm/dl Globulin 3.7 (2.5-4.0) gm/dl Albumin/Globulin Ratio 1.1 (0.9-2) Triglycerides (0-150) mg/dl Cholesterol (0-200) mg/dl LDL Cholesterol, Calc mg/dl VLDL Cholesterol, Calc mg/dl HDL Cholesterol mg/dl Cholesterol/HDL Ratio Lipase 118 (73-393) U/L Nasal Screen MRSA (PCR) (Negative) Hepatitis C Ab Screen (Neg) 06/22/19 Range/Units 14:39 WBC 5.72 (4.8-10.8) K/uL RBC 4.84 (4.7-6.1) M/uL Hgb 16.9 (14.0-18.0) g/dL POC Hgb (14.0-18.0) g/dl Hct 47.2 (42-52) % POC Hct (42-52) % MCV 97.5 (80-100) fL MCH 34.9 H (25-34) pg MCHC 35.8 (32-36) g/dL RDW Std Deviation 42.6 (36.4-46.3) fL RDW Coeff of David 12.0 (11.5-14.5) % Plt Count 175 (130-400) K/uL MPV 10.6 H (7.4-10.4) fL Immature Gran % (Auto) 0.2 % Neut % (Auto) 64.5 % Lymph % (Auto) 22.2 % [place] % (Auto) 11.0 % Eos % (Auto) 1.6 % Baso % (Auto) 0.5 % Immature Gran # (Auto) 0.01 (0.00-0.02) K/uL Neut # (Auto) 3.69 (1.4-6.5) K/uL Lymph # (Auto) 1.27 (1.2-3.4) K/uL [place] # (Auto) 0.63 H (0.11-0.59) K/uL Eos # (Auto) 0.09 (0-0.5) K/uL Baso # (Auto) 0.03 (0-0.2) K/uL PT (9.0-12.0) Seconds INR (0.9-1.1) APTT (21.0-31.0) Seconds PTT Ratio Activ Coag Time Kaolin (94-140) SECONDS D-Dimer (0-500) ug/L FEU POC Sodium (135-144) mEq/L Sodium (136-145) mmol/L POC Potassium (3.3-5.0) mEq/L Potassium (3.5-5.1) mmol/L POC Chloride (101-112) mEq/L Chloride (98-107) mmol/L Carbon Dioxide (21-32) mmol/L POC Total CO2 (24-31) mEq/l Anion Gap (3-11) POC Anion Gap (16-25) mmol/L POC BUN (7-18) mg/dl BUN (7-18) mg/dl Creatinine (0.6-1.4) mg/dl POC Creatinine (0.6-1.3) mg/dl Est Cr Clr Drug Dosing ml/min Est GFR ( Amer) Est GFR (Non-Af Amer) BUN/Creatinine Ratio (10-20) Glucose (70-99) mg/dl POC Glucose (70-99) POC Glucose (other) (70-99) mg/dl Estimat Average Glucose mg/dl Hemoglobin A1c (4.5-5.6) % Calcium (8.5-10.1) mg/dl POC Ioniz Calcium Pascale (1.12-1.32) mmol/l Phosphorus (2.5-4.9) mg/dl Magnesium (1.8-2.4) mg/dl Total Bilirubin (0.2-1) mg/dl AST (15-37) U/L ALT (12-78) U/L Alkaline Phosphatase (45-117) U/L Total Creatine Kinase (39-308) U/L CK-MB (CK-2) (0.5-3.6) ng/ml CK/CKMB % Calc (0-3.0) POC Troponin I (0-0.045) ng/ml Troponin I (0-0.045) ng/ml Total Protein (6.4-8.2) gm/dl Albumin (3.4-5.0) gm/dl Globulin (2.5-4.0) gm/dl Albumin/Globulin Ratio (0.9-2) Triglycerides (0-150) mg/dl Cholesterol (0-200) mg/dl LDL Cholesterol, Calc mg/dl VLDL Cholesterol, Calc mg/dl HDL Cholesterol mg/dl Cholesterol/HDL Ratio Lipase (73-393) U/L Nasal Screen MRSA (PCR) (Negative) Hepatitis C Ab Screen (Neg) PG Care Time/CCT Total # of Minutes Spent Total Time Spent with Patient: Total time spent is greater than 50% in coordin ation of care (as documented) at patient's floor/unit and/or counseling patient:
[2019-06-24 06:49] LABS: Hematocrit (blood only) 45.7 % (42-52); Hemoglobin 16.2 g/dL (14.0-18.0); Mean Corpuscular Hemoglobin 35.4 pg (25-34); Mean Corpuscular Hgb Conc 35.4 g/dL (32-36); Mean Platelet Volume 10.3 fL (7.4-10.4); Platelet Count 183 K/uL (130-400); RDW Coefficient of Variation 12.1 % (11.5-14.5); RDW Standard Deviation 44.1 fL (36.4-46.3); Red Blood Count 4.57 M/uL (4.7-6.1); White Blood Count 7.09 K/uL (4.8-10.8)
[2019-06-24 07:26] LABS: Calcium 9.4 mg/dl (8.5-10.1); Creatinine Clr Calc Pharmacy 73.4 ml/min; Est GFR (Non-African American) 64.7; Potassium 4.1 mmol/L (3.5-5.1)
--- NOTE | 2019-06-24 08:12 | Cardiology Progress Note ---
Date of Service June 24, 2019 Assessment & Plan (1) ST elevation (STEMI) myocardial infarction: (2) S/P drug eluting coronary stent placement: (3) CAD (coronary artery disease): ASSESSMENT/PLAN: 1. STEMI: LAD STEMI s/p PCI. No angina and no ventricular arrhythmia on monitor. Continue dual antiplately therapy. Continue betablocker, ACEI, and high intensity statin therapy. Cardiac rehab as outpatient. Peak troponin was 0.64. 2. CAD s/p PCI: No angina since PCI. Euvolemic on exam. Normal LV systolic function on echo without wall motion abnormality per report. Continue medical therapy as above. NTG prn on discharge. 3. Disposition: Can be discharged to home this afternoon with follow-up in 1-2 weeks in the cardiology office. Patient care discussed with primary hospitalist, Dr. Beltran. Subjective He was seen this morning at approximately 7:30 a.m. a ham. He denies angina, shortness of breath, chest pain, syncope, near-syncope, palpitations, edema, or bleeding. He has tolerated ambulating in the hallways without exertional symptoms. He was alone in his hospital room. Review of systems: As above. Physical Exam Physical Exam: Gen.: NAD. Alert and oriented. HEENT: Anicteric sclera. Neck: No JVD. Cardiac: Regular. No ectopy. Normal S1-S2. No murmurs, rubs, or gallops. Pulmonary: Clear to auscultation bilaterally without wheezes, rales, or rhonchi. Abdomen: Soft, nontender, nondistended, with normoactive bowel sounds. No bruits noted. Extremities: 2+ radial pulses bilaterally. Right radial cath site is clean, dry, and intact without erythema, discharge, or bleeding. No edema or cyanosis. Psychiatric: Affect appears appropriate. Results & Data Vital Signs (Past 12 Hours) Vital Signs Temp Pulse Pulse Pulse Resp BP BP 06/24/19 07:55 36.5 C 74 18 115/71 06/24/19 04:00 36.9 C 61 18 109/66 06/23/19 23:50 73 06/23/19 23:36 36.7 C 58 L 18 133/69 Pulse Ox 06/24/19 07:55 96 06/24/19 04:00 96 06/23/19 23:50 06/23/19 23:36 95 Laboratory Results Laboratory Results - last 24 hr 06/22/19 06/23/19 06/24/19 14:45 10:10 06:29 WBC RBC Hgb POC Hgb 16.3 Hct POC Hct 48 MCV MCH MCHC RDW Std Deviation RDW Coeff of David Plt Count MPV POC Sodium 141 Sodium 141 POC Potassium 4.0 Potassium 4.1 POC Chloride 106 Chloride 107 Carbon Dioxide 31 POC Total CO2 24 Anion Gap 3.0 POC Anion Gap 17.0 POC BUN 14 BUN 16 Creatinine 1.21 POC Creatinine 1.1 Est Cr Clr Drug Dosing 73.4 Est GFR ( Amer) 75.0 Est GFR (Non-Af Amer) 64.7 BUN/Creatinine Ratio 13.0 Glucose 92 POC Glucose (other) 116 H Calcium 9.4 POC Ioniz Calcium Pascale 1.25 Troponin I 0.551 H* 06/24/19 06:29 WBC 7.09 RBC 4.57 L Hgb 16.2 POC Hgb Hct 45.7 POC Hct MCV 100.0 MCH 35.4 H MCHC 35.4 RDW Std Deviation 44.1 RDW Coeff of David 12.1 Plt Count 183 MPV 10.3 POC Sodium Sodium POC Potassium Potassium POC Chloride Chloride Carbon Dioxide POC Total CO2 Anion Gap POC Anion Gap POC BUN BUN Creatinine POC Creatinine Est Cr Clr Drug Dosing Est GFR ( Amer) Est GFR (Non-Af Amer) BUN/Creatinine Ratio Glucose POC Glucose (other) Calcium POC Ioniz Calcium Pascale Troponin I Diagnostic Findings Telemetry personally reviewed. Sinus rhythm. No arrhythmia. Medications Administered Current Inpatient Medications Aspirin (Ecotrin Ectab) 81 mg PO [facility] Stop: 07/23/19 08:59 Last Admin: 06/23/19 08:48 Dose: 81 mg Documented by: Atorvastatin Calcium (Lipitor) [facility]: 07/23/19 08:59 Last Admin: 06/23/19 08:49 Dose: 80 mg Documented by: Lisinopril (Zestril) 5 [facility] Stop: 07/23/19 08:59 Last Admin: 06/23/19 08:50 Dose: 5 mg Documented by: Metoprolol Tartrate (Lopressor) 12.5 mg PO BID [facility] Stop: 07/22/19 20:59 Last Admin: 06/23/19 20:48 Dose: 12.5 mg Documented by: Ondansetron HCl (Zofran) 4 mg IV Q6H PRN PRN Reason: Nausea And Vomiting Stop: 07/22/19 16:04 Pantoprazole Sodium (Protonix) 40 mg PO QAM [facility] Stop: 07/23/19 08:59 Last Admin: 06/23/19 08:49 Dose: 40 mg Documented by: Ticagrelor (Brilinta) 90 mg PO BID [facility] Stop: 07/22/19 23:29 Last Admin: 06/23/19 20:48 Dose: 90 mg Documented by: PG Care Time/CCT Total # of Minutes Spent Total Time Spent with Patient: Total time spent is greater than 50% in c oordination of care (as documented) at patient's floor/unit and/or counseling patient: (1) ST elevation (STEMI) myocardial infarction Involved coronary artery: unspecified coronary artery Qualified Code(s): I21.3 - ST elevation (STEMI) myocardial infarction of unspecified site
[2019-06-24] MEDS: METOPROLOL TARTRATE 25 MG TAB PO SCH (08:20)
[2019-06-24] MEDS: ATORVASTATIN 40 MG TAB PO SCH (08:20)
[2019-06-24] MEDS: lisinopriL 5 MG TAB PO SCH (08:21)
[2019-06-24] MEDS: TICAGRELOR 90 MG TAB PO SCH (08:21)
[2019-06-24] MEDS: ASPIRIN 81 MG ECTAB PO SCH (08:21)
[2019-06-24] MEDS: PANTOprazole 40 MG TAB PO SCH (08:21)
--- NOTE | 2019-06-24 14:35 | Discharge Summary ---
Date of Service June 24, 2019 Admission HPI Per Admitting Provider Mr. Hussein is a 58 year old male with past medical history of GERD, seasonal allergies who presented to the ER this afternoon with chest pain and shortness of breath. Pt. reports he woke up around 2:30 am this morning with right sided chest pain that radiated to his right shoulder. Chest pain was intermittent. He developed shortness of breath at rest as the morning progressed and he arrived at the ER around 2 p.m. Heart alert was initiated due to ST elevation noted on EKG. He is status post cardiac cath, had 99% blockage of LAD with PCI & placement of STEVEN. He is currently admitted to the ICU post procedure. Pt. feels well overall, denies current chest pain or SOB. His is present at bedside along with other family members. Admission Exam Per Admitting Provider General: Resting comfortably HEENT: NC/AT; PERRLA with EOMI; [place] conjunctiva, MMM. No erythema of posterior pharynx Neck: Supple and nontender Cardiac: RRR Lungs: CTA bilaterally; No rhonchi, wheezing, or rales Abdomen: Bowel normoactive X 4; Nontender to palpation Extremities: Warm. No edema present Neuro: No focal weakness Skin: No rash Principal Diagnosis STEMI Discharge Exam General: Resting comfortably HEENT: NC/AT; PERRLA with EOMI; [place] conjunctiva, MMM. No erythema of posterior pharynx Neck: Supple and nontender Cardiac: RRR Lungs: CTA bilaterally Abdomen: Bowel normoactive X 4; Nontender to palpation Extremities: Warm. No edema present Neuro: No focal weakness Skin: No rash Discharge Data Allergies Allergy/AdvReac Type Severity Reaction Status Date / Time fentanyl AdvReac Confusion Verified 06/22/19 15:02 Consultations 06/22/19 16:08 Consult Cardiac Rehabilitation Routine 06/22/19 16:10 Consult Market Editor Routine 06/23/19 10:40 Consult Cardiology Routine Procedures Performed Operation Date: 06/22/19 14:50 Actual Procedures s Cineradiography w/Routine Exam - Ganesh Casas MD s Cath, Left with Cors and Vent - Ganesh Casas MD p Aspiration/PCI w/STEVEN for Stemi - Ganesh Casas MD Ordered Studies 06/22/19 14:49 CXR CL Cath Imgs for PACS use only Stat Hospital Course (1) ST elevation (STEMI) myocardial infarction: S/p cardiac cath on 06/22/19; anterior STEMI with 99% early-mid LAD stenosis with placement of STEVEN x 1. Dual anti-platelet therapy for at least 1 year. Metoprolol tartrate 12.5 mg BID and Lisinopril 5 mg qAM. Atorvastatin 80 mg qAM; lipid panel showed LDL 88, HDL 41 and total chol 156. Echo with EF 55-60%, borderline LVH and no wall motion abnormalities. Consulted cardiac rehab; f/u outpatient cardiology in 1-2 weeks. (2) CAD (coronary artery disease): As noted above. Cardiac meds at discharge. (3) Elevated troponin: Trop currently peaked at 0.6. (4) GERD (gastroesophageal reflux disease): PPI. (5) DVT prophylaxis: ASA & Brilinta. Discharged to home on 06/24/19. Total Time Total Time Spent Total Time Spent (In Minutes): >30 minutes Total Time Includes: Examination of the Patient, Discharge Planning, Medication Reconciliation, Communication With Other Providers and Other Discharge Plan Discharge Items Patient Disposition: Home - Self-Care Reason For Visit: STEMI Discharge Diagnosis: STEMI Condition on Discharge: Fair Goals: You have been hospitalized for an acute medical problem. During your stay at [facility], we have made an effort to correct the problem that brought you to the hospital while keeping you as comfortable as possible. Medications were used to bring your condition under control and your discharge instructions will include directions for any medications you should take after leaving the hospital. Please make sure you see your Primary Care Provider as p art of your follow up plan. Activity: As commented below Exercise/Sports: Wait until after follow-up appointment Non-emergency contact: Primary Care Provider and Supervisor [employer] Call non-emergency contact if: you have any medication questions, your symptoms worsen and you have a fever Follow-up/Referrals: Fermin Lau MD [Primary Care Provider] - 07/01/19 9:30 am (Please, follow up with Dr. Fermin Lau on SundayJuly 01 at 9:30 am. *If you need to change this appointment, call the office at [phone].) Ganesh Casas MD [Physician] - 07/08/19 10:00 am (Please, follow up at [facility] Office with Dr. Hector Casas on SundayJuly 08 at 10:00 am. *The office is located in [address] of [facility], next to this hospital. If you need to change this appointment, call the office at [phone].) Diet: Heart Healthy Addtl Attending Provider Instructions: 1. STEMI/Coronary Artery Disease * Status post cardiac cath with placement of drug eluting stent in LAD. * Please take the following medications at home: - Metoprolol 12.5 mg twice daily. - Atorvastatin 80 mg daily. - Lisinopril 5 mg daily. - Aspirin 81 mg daily. - Brilinta 90 mg twice daily. * Please follow up with cardiology in the outpatient clinic following discharge. * You will also need cardiac rehabilitation services. ACTIVITY RECOMMENDATIONS: Excess manipulation of the wrist should be avoided for the next 24-48 hours. * No lifting over 2 pounds (approximately a 1/2 gallon of milk) with the utilized arm for 24 hours. * No strenuous activity such as bowling or tennis for 3 days. * Keep the site of the procedure covered with a bandage for 24 hours. *You may shower the day after the procedure. Do not take a tub bath or submerge the puncture site in water for the next 3 days. *Do not operate any motorized equipment for 3 days. SPECIAL CARE INSTRUCTIONS: The site may be slightly bruised and sore following your procedure. Should any of the following occur, contact the Dr. who performed your procedure. 1. Redness/inflammation, swelling, chills, or fever, or colored drainage at procedure site within 3-7 days after your procedure. 2. Coldness, discoloration, ongoing numbness, severe pain, or swelling. Expect mild tingling of hand and tenderness at the puncture site for up to three days. If this persists beyond three days, or other symptoms develop, notify the Dr. who performed your procedure. BLEEDING: If the procedure site on your wrist begins to bleed, do not panic 1. Place 1 or 2 fingers firmly just slightly above the insertion site to stop the bleeding. You may be able to feel your pulse as you hold pressure. 2. Lift your finger after 5 minutes to see if the bleeding has stopped. 3. Once the bleeding has stopped, gently wipe the wrist area clean with a bandage. * If the bleeding from your wrist does not stop after 10 minutes, or if there is a large amount of bleeding or spurting, call 911 ([address] not drive yourself to the hospital). SKIN IRRITATION: * You may experience some redness and/or swelling in the area where radiation was administered. If any skin irritation occurs, please contact your family physician. FOLLOW UP VISIT: Keep any scheduled doctor appointments. Pending Studies at Discharge: No Stand-Alone Forms: My [facility] Medications and DC Order Prescriptions: New Brilinta 90 mg Tablet 90 mg PO BID Qty: 60 RF: 2 atorvastatin 80 mg tablet 80 mg PO DAILY Qty: 30 RF: 2 lisinopril [Zestril] 5 mg Tablet 5 mg PO QAM 30 Days Qty: 30 RF: 2 metoprolol tartrate 25 mg Tablet 12.5 mg PO BID 30 Days Qty: 30 RF: 2 aspirin [Ecotrin Low Strength] 81 mg Tablet,Delayed Release (Dr/Ec) 81 mg PO QAM 1 Days Qty: 1 RF: 0 Continued cetirizine 10 mg tablet 10 mg PO DAILY RF: 0 omeprazole 10 mg capsule,delayed release(DR/EC) 10 mg PO DAILY RF: 0 Discharge Orders: Discharge Order (Routine); Ordered 06/24/19 Ordered By: Eileen Morataya Admission Data Admit Date/Time: 06/22/19 16:09 Attending Provider: Katiana Beltran Admit Provider: Ganesh Casas Primary Care Provider: Fermin Lau Other Providers: Arnold Escobedo ; Itz Pantoja Other Interventions: Discharge Summary Assessment (RN) Last Done: 06/24/19 11:54 DC Date/Time DO NOT enter until pt leaves facility: 06/24/19 12:39 Supervising Physician Co-Signing Physician Notes I have seen and examined patient with Eileen Morataya PA-C and agree with D/C Summary.
== END 2019-06-24 12:39 | disposition home or self-care (01) | DRG 247 ==
LOC: ED 13:54 → CC 15:06 → 1E 16:09 → SUATTDRO 16:09 → 2S 06-23 17:17

== ENCOUNTER 2022-08-14 06:45 | Observation (INO) ==
--- NOTE | 2022-07-07 16:15 | PAT Medication Instructions ---
Medication Instructions Date of Service July 07, 2022 Home Medications Medication Instructions Recorded metoprolol tartrate 25 mg tablet 12.5 mg PO BID #90 tabs 10/27/21 cyclobenzaprine 10 mg tablet 10 mg PO HS PRN spasms #30 tabs 06/03/22 lisinopril 5 mg tablet (Zestril) 5 mg PO QAM #90 tabs 06/06/22 aspirin 81 mg tablet,delayed release 81 mg PO QAM metoprolol tartrate 25 mg tablet 12.5 mg PO BID cyclobenzaprine 10 mg tablet 10 mg PO HS PRN spasms lisinopril 5 mg tablet (Zestril) 5 mg PO QAM acetaminophen 650 mg tablet,extended release (Tylenol Arthritis Pain) 1,300 mg PO Q12H PRN Pain glucosamine sulf dipotassium Cl 750 mg-chondroitin sulf 600 mg tablet (Glucosamine-Chondroitin 3X Triple Strength) 1 tab PO BID omega 5-egc-udu-fish oil 1,200 mg (144 mg-216 mg) capsule (Fish Oil) 1 cap PO QAM omeprazole magnesium 20 mg capsule,delayed release (Acid Senior Operations Manager (omeprazole)) 20 mg PO Q2D atorvastatin 80 mg tablet 80 mg PO QAM cetirizine 10 mg tablet (Zyrtec) 10 mg PO DAILY PRN Allergy Symptoms clopidogrel 75 mg tablet (Plavix) 75 mg PO QAM ezetimibe 10 mg tablet 10 mg PO QAM Continue as directed omeprazole magnesium 20 mg capsule,delayed release (Acid Senior Operations Manager (omeprazole)) 20 mg PO Q2D ASK your prescriber and surgeon clopidogrel 75 mg tablet (Plavix) 75 mg PO QAM (will need to hold Plavix/clopidogrel for at least 7 days prior to surgery in order to get spinal anesthesia) STOP taking 2 weeks before surgery glucosamine sulf dipotassium Cl 750 mg-chondroitin sulf 600 mg tablet (Glucosamine-Chondroitin 3X Triple Strength) 1 tab PO BID omega 4-ldv-vhu-fish oil 1,200 mg (144 mg-216 mg) capsule (Fish Oil) 1 cap PO QAM DO NOT take the morning of surgery lisinopril 5 mg tablet (Zestril) 5 mg PO QAM cetirizine 10 mg tablet (Zyrtec) 10 mg PO DAILY PRN Allergy Symptoms Take morning of surgery With a small sip of water, OTHERWISE NOTHING TO EAT OR DRINK AFTER MIDNIGHT: aspirin 81 mg tablet,delayed release 81 mg PO QAM (unless surgeon directed otherwise) metoprolol tartrate 25 mg tablet 12.5 mg PO BID acetaminophen 650 mg tablet,extended release (Tylenol Arthritis Pain) 1,300 mg PO Q12H PRN Pain (if needed) atorvastatin 80 mg tablet 80 mg PO QAM ezetimibe 10 mg tablet 10 mg PO QAM Take evening before surgery metoprolol tartrate 25 mg tablet 12.5 mg PO BID cyclobenzaprine 10 mg tablet 10 mg PO HS PRN spasms (if needed) acetaminophen 650 mg tablet,extended release (Tylenol Arthritis Pain) 1,300 mg PO Q12H PRN Pain (if needed) cetirizine 10 mg tablet (Zyrtec) 10 mg PO DAILY PRN Allergy Symptoms (if needed) Other Notes If you have any questions please call us at [phone] or [phone] or [phone] or [phone]
--- NOTE | 2022-07-12 12:26 | Anesthesiology Consultation ---
Date of Service July 12, 2022 Assessment & Plan (1) Encounter for pre-operative examination: - cardiology 04/21/22 [place]: "...CAD s/p LAD STEMI and PCI: No angina. Has had chronic atypical chest discomfort, different than prior angina and occurring only at rest. Normal LV systolic function. Continue aspirin 81 mg daily indefinitely. Continue Plavix 75 mg daily if no contraindication, and can hold for procedures 5-7 days prior. Continue beta-rayshawn, NELLY-inhibitor if tolerat ed. Continue high-intensity statin therapy. 911 for angina that does not resolve within 5 minutes. Atypical chest pain: Chronic and stable atypical chest discomfort, different than prior angina. Occurs only at rest. Denies any recent chest pain...Dyslipidemia/Elevated LipoProtein a: Lipoprotein a was significantly elevated at 195 in 2020. Continue high-intensity statin therapy. Tolerating Zetia. LDL had been less than 50 in 2019 and 2020. Recommended in the past that first-degree relatives/children inform their primary providers, which may assist in their treatment strategies..." - Outpatient joint pathway: Per surgeon and patient, plan for outpatient joint program. Upon review of chart- patient is not an acceptable candidate for Same Day Joint Program from anesthesia perspective due to inadequate home support. Additional consideration of his lower extremity peripheral neuropathy. He was advised to call office if home support changes/additional people will be in home with him and his and this can be further reviewed with an anesthesiologist. Surgeon's office made aware. Chart Review Chart Review: Acceptable Risk for Surgery and Patient seen in Pre Admission Testing Teaching & Discussion Pre-Anesthesia Teaching/Discussion Notes: Instructed NPO after midnight before surgery, except medications with 15 cc of water. Medication instructions provided according to the PAT guidelines. History Surgery Operation Date: 08/14/22 10:40 Proposed Procedures p Left Total Hip Arthroplasty Anterior - Shashank Martinez, Height/Weight Height: 6 ft 1 in Weight: 86.636 kg Allergies Allergy/AdvReac Type Severity Reaction Status Date / Time fentanyl AdvReac Confusion, Verified 07/12/22 12:32 hallucinations, visual changes Medications Home Medications Medication Instructions Recorded Confirmed Last Taken aspirin 81 mg tablet,delayed 81 mg PO QAM 07/04/19 07/07/22 Unknown release metoprolol tartrate 25 mg tablet 12.5 mg PO BID #90 tabs 10/27/21 07/07/22 Unknown cyclobenzaprine 10 mg tablet 10 mg PO HS PRN spasms #30 tabs 06/03/22 07/07/22 Unknown lisinopril 5 mg tablet (Zestril) 5 mg PO QAM #90 tabs 06/06/22 07/07/22 Unknown acetaminophen 650 mg 1,300 mg PO Q12H PRN Pain 06/08/22 07/07/22 Unknown tablet,extended release (Tylenol Arthritis Pain) glucosamine sulf dipotassium Cl 1 tab PO BID 06/08/22 07/07/22 Unknown 750 mg-chondroitin sulf 600 mg tablet (Glucosamine-Chondroitin 3X Triple Strength) omega 6-pto-fnn-fish oil 1,200 mg 1 cap PO QAM 06/08/22 07/07/22 Unknown (144 mg-216 mg) capsule (Fish Oil) omeprazole magnesium 20 mg 20 mg PO Q2D 06/08/22 07/07/22 Unknown capsule,delayed release (Acid Paving Rammer (omeprazole)) atorvastatin 80 mg tablet 80 mg PO QAM 07/07/22 07/07/22 Unknown cetirizine 10 mg tablet (Zyrtec) 10 mg PO DAILY PRN Allergy Symptoms 07/07/22 07/07/22 Unknown clopidogrel 75 mg tablet (Plavix) 75 mg PO QAM 07/07/22 07/07/22 Unknown ezetimibe 10 mg tablet 10 mg PO QAM 07/07/22 07/07/22 Unknown Past Medical History Medical History (Updated 07/12/22 @ 12:38 by Myesha Mendoza PA-C) CAD (coronary artery disease) 1 STEVEN 06/2019 Dyslipidemia GERD (gastroesophageal reflux disease) controlled, stable per pt Hepatitis C antibody test negative (01/28/19) Hiatal hernia History of COVID-19 10/2021, home test and then tested at [place], not hosp; mild cold symptoms for 2 weeks>resolved. Idiopathic polyneuropathy lower legs and feet bilat, denies using ambulating aids ST elevation (STEMI) myocardial infarction 06/24/19, led to cardiac cath w/stent placment; f/u dr. boone, [place] Patient denies h/o stroke, seizures, heart failure, DM, HTN, blood clots or blood transfusions. Exercise / Class Metabolic Activity II 4-5 Yardwork/Stairs/Walk up hill (denies chest discomfort or shortness of breath with 1 FOS) Past Family History Family History (Updated 07/12/22 @ 12:38 by Myesha Mendoza PA-C) Father Diabetes Hx of CABG Acute myocardial infarction Diverticulitis Myocardial infarction Grandfather (Maternal) Acute myocardial infarction Mother Lung cancer Diabetes Grandmother (Maternal) Stroke Denies family history of Ovarian cancer Prostate cancer Breast cancer Colorectal cancer Past Surgical History Surgical History H/O knee surgery rt knee-in the for cartilege repair/removal H/O umbilical hernia repair (04/07/14) History of cardiac cath 06/23/19, [facility], x1 stent History of colonoscopy (02/17/16) Entire examined colon was normal. Next due 2025. Hx of arthroscopy of left knee Hx of cataract surgery bilat. Hx of wisdom tooth extraction S/P drug eluting coronary stent placement 06/23/19, [facility], x1, done by dr marks, [place]; dr boone, [place] cardio Past Anesthesia History No Hx of Anesthesia Complications and No Family Hx of Anesthesia Complications History of PONV No Hx of PONV and No Hx of Motion Sickness Social History Smoking Status: Current some day smoker (advised) tobacco type: cigars Smoking cigarettes per day: once per month Do You Dip or Chew Tobacco: No Hx Alcohol Use: Yes Alcohol type: beer and hard liquor alcohol intake frequency: a few times a week Hx Substance Use: No substance use type: does not use Review of Systems Occasional snoring, denies witnessed apneas. Patient denies chest pain, shortness of breath, dyspnea on exertion, fever, chills, cough, wheezing, or palpitations. Physical Exam Vital Signs Vitals BP 117/74 P 63 TEMP 98.8 SP02 95% on RA RESP 18 Physical Full cervical extension range of motion without pain TMD 3.5 finger breadths Mallampati Score 2 Dentition: several crowns; denies chipped or loose teeth, caps/crowns, implants or bridges Lungs: normal respiratory effort. Clear throughout to auscultation, no adventitious breath sounds Cardiac: regular rate and rhythm, no murmurs noted Carotid arteries: negative bruit bilat Lab Results Anesthesia Preop Results Results Anesthesia Widget: WBC 4.50 K/ul (4.8-10.8) L 07/12/22 Hgb 15.8 g/dl (14.0-18.0) 07/12/22 Hct 44.3 % (42.0-52.0) 07/12/22 Plt 185 K/uL (130-400) 07/12/22 Na 139 mmol/L (136-145) 07/12/22 K 4.5 mmol/L (3.5-5.1) 07/12/22 Cl 106 mmol/L (98-107) 07/12/22 CO2 29 mmol/L (21-32) 07/12/22 BUN 15 mg/dl (6-23) 07/12/22 Creat 1.10 mg/dl (0.6-1.4) 07/12/22 Glucose Level 96 mg/dl (70-99(Fasting)) 07/12/22 PT 10.9 Seconds (9.0-12.0) 07/12/22 PTT 25.1 Seconds (21.0-31.0) 07/12/22 INR 1.0 (0.9-1.1) 07/12/22 Blood Type A Positive 07/12/22 Antibody Screen NEGATIVE 07/12/22 Testing Electrocardiogram Date: 07/12/22 NSR, rate 63 bpm Left axis deviation Chest X-Ray Date: 07/12/22 Cardiomediastinal and hilar silhouettes are within normal limits. Coronary arterial stenting. No pneumothorax, pleural effusion, airspace consolidation or overt pulmonary edema. Degenerative changes of the shoulders and spine. IMPRESSION: No acute process. Echocardiogram Date: 06/23/19 EF 55-60% Normal LV wall motion Borderline cLVH Grade I diastolic dysfunction Mild mitral regurgitation Trivial panvalvular regurgitation Cardiac Catheterization Date: 06/22/19 LM -large caliber vessel without significant disease LAD -large caliber vessel, 99% earlymid stenosis just after takeoff of large first diagonal with XUAN I-II distal flow Circumflex -medium caliber vessel with distal luminal irregularities. Medium caliber OM 2 with 50 to 60% proximal disease. RCA -large caliber vessel, dominant, 30 to 40% mid segment disease, distal luminal irregularities. 1. Anterior STEMI/99% earlymid LAD stenosis 2. Mild to moderate non-culprit vessel coronary artery disease -50 to 60% OM 2 30 to 40% mid RCA 3. Normal intracardiac filling pressure 4. Successful PCI of earlymid LAD with single drug-eluting stent (3.5 x 26 mm Jayce; postdilated with 4.0 NC). COVID-19 Risk Screen Screening Information COVID-19 Screen Date: 07/12/22 Exposure 21 Days Family/Household +COVID Last 21 Days: No Exposure 10 Days Any COVID Exposure Last 10 Days: No Symptoms Last 10 Days Experienced COVID Sx Last 10 Days: No + COVID 0-90 Days COVID + in Last 0-90 Days: No
--- NOTE | 2022-08-14 06:34 | History & Physical Report ---
Date of Service August 14, 2022 Assessment & Plan (1) Primary osteoarthritis of right hip: We will proceed with a right anterior total of arthroplasty. Postoperatively he will be started on Plavix and kept overnight in the hospital for postoperative medical management. He plans to use [facility] upon discharge. History of Present Illness Chief Complaint: Osteoarthritis of the right hip. Primary Care Provider: Fermin Lau MD Seng is a pleasant 61-year-old male who has been dealing with chronic worsening bilateral hip pain. He has very minimal range of motion of his hips. It is starting to affect his daily activities. He has done over a year of conservative treatment. He has done physical therapy, he has been taking the anti-inflammatories. He has done activity modification. He is to the point where his hips are really affecting his quality of life. X-rays and clinical examination been diagnostic for severe osteoarthritis of his hips. After failing conservative treatment, he has elected to proceed with a right anterior total hip arthroplasty. Allergies Allergy/AdvReac Type Severity Reaction Status Date / Time fentanyl AdvReac Confusion, Verified 07/12/22 12:32 hallucinations, visual changes Home Medications Medication Instructions Recorded Confirmed Type aspirin 81 mg tablet,delayed 81 mg PO QAM 07/04/19 07/07/22 History release metoprolol tartrate 25 mg tablet 12.5 mg PO BID #90 tabs 10/27/21 07/07/22 Rx cyclobenzaprine 10 mg tablet 10 mg PO HS PRN spasms #30 tabs 06/03/22 07/07/22 Rx lisinopril 5 mg tablet (Zestril) 5 mg PO QAM #90 tabs 06/06/22 07/07/22 Rx acetaminophen 650 mg 1,300 mg PO Q12H PRN Pain 06/08/22 07/07/22 History tablet,extended release (Tylenol Arthritis Pain) glucosamine sulf dipotassium Cl 1 tab PO BID 06/08/22 07/07/22 History 750 mg-chondroitin sulf 600 mg tablet (Glucosamine-Chondroitin 3X Triple Strength) omega 7-hlh-ufm-fish oil 1,200 mg 1 cap PO QAM 06/08/22 07/07/22 History (144 mg-216 mg) capsule (Fish Oil) omeprazole magnesium 20 mg 20 mg PO Q2D 06/08/22 07/07/22 History capsule,delayed release (Acid Engineering Laboratory Technician (omeprazole)) atorvastatin 80 mg tablet 80 mg PO QAM 07/07/22 07/07/22 History cetirizine 10 mg tablet (Zyrtec) 10 mg PO DAILY PRN Allergy Symptoms 07/07/22 07/07/22 History clopidogrel 75 mg tablet (Plavix) 75 mg PO QAM 07/07/22 07/07/22 History ezetimibe 10 mg tablet 10 mg PO QAM 07/07/22 07/07/22 History Past Med/Surg History Medical History CAD (coronary artery disease) 1 STEVEN 06/2019 Dyslipidemia GERD (gastroesophageal reflux disease) controlled, stable per pt Hepatitis C antibody test negative (01/28/19) Hiatal hernia History of COVID-19 10/2021, home test and then tested at [place], not hosp; mild cold symptoms for 2 weeks>resolved. Idiopathic polyneuropathy lower legs and feet bilat, denies using ambulating aids ST elevation (STEMI) myocardial infarction 06/24/19, led to cardiac cath w/stent placment; f/u [facility] Surgical History H/O knee surgery rt knee-in the s for cartilege repair/removal H/O umbilical hernia repair (04/07/14) History of cardiac cath 06/23/19, [facility], x1 stent History of colonoscopy (02/17/16) Entire examined colon was normal. Next due 2025. Hx of arthroscopy of left knee Hx of cataract surgery bilat. Hx of wisdom tooth extraction S/P drug eluting coronary stent placement 06/23/19, [facility], x1, done by dr marks, [facility]; dr boone, [facility] cardio Family History Father Diabetes Hx of CABG Acute myocardial infarction Diverticulitis Myocardial infarction Grandfather (Maternal) Acute myocardial infarction Mother Lung cancer Diabetes Grandmother (Maternal) Stroke Denies family history of Ovarian cancer Prostate cancer Breast cancer Colorectal cancer Social History Smoking Status: Current some day smoker (advised) Cigarettes Per Day: once per month; Second Hand Exposure: Yes (as a child); Hx Alcohol Use: Yes Alcohol type: beer and hard liquor Alcohol Intake Frequency: 2-3 x/Week Hx Substance Use: No Preferred Language: Chinese Communication Ability: Effective Visual Impairment: No Limitations Hearing Ability: Normal Public Area Supervisor Required: No Beliefs That Will Affect Care: None marital status: Current Living Situation: Spouse current occupational status: retired current occupation: retired How many Children do You have: 2 Feels Safe at Home: Yes Childhood Exposure to Second-Hand Smoke: Yes caffeine: Yes Dental Care, Regularly: Yes Physical Activity Frequency: 3-4 Times per Week Seatbelt Use: always Sunscreen Use: Yes Assistive Devices: None Review of Systems All systems reviewed & are unremarkable except as noted in HPI & below. Physical Exam On physical examination of the right hip, he has very limited range of motion. He has pain with forced internal and external rotation.. Constitutional WD/WN, vitals as above Eyes PERRL, conjunctivae normal, anicteric sclerae ENMT external ear and nose normal, oropharynx normal Neck trachea midline, no thyromegaly Respiratory normal respiratory effort, lungs clear to auscultation Cardiovascular RRR, no murmur, no edema Gastrointestinal (Abdomen) normal bowel sounds, soft, nontender, no hepatosplenomegaly Skin no rashes, warm and dry Psychiatric A+Ox3, euthymic affect Results & Data Results & Data Laboratory Results . Diagnostic Findings X-rays of the right hip show advanced osteoarthritis with joint space narrowing, osteophyte formation, and bqkn-ag-wesc articulation. PG Care Time/CCT Total # of Minutes Spent Total Time Spent with Patient: Total time spent is greater than 50% in coordination of care (as documented) at patient's floor/unit and/or counseling patient: Coding Level of Care Code None Diagnoses Primary osteoarthritis of right hip M16.11
[~2022-08-14 06:45] MED LIST changes: +ACETAMINOPHEN 500 MG TAB PO SCH; +BUPIVACAINE 0.5 % 5 MG/1 ML PF 10ML VIAL ONE; -CETI10TA10 PO; +FAMOTIDINE 20 MG TAB PO SCH; +GABAPENTIN 300 MG CAP PO SCH; -IBUP-1050 PO; +LR 500ML BOLUS, THEN 15ML/HR IV SCH; +LR 60ML/HR IV SCH; +ORTHO JOINT MIX INFIL SCH; +TRANEXAMIC ACID 1,000 MG **IV Intra-op IV SCH; +TRANEXAMIC ACID 1,000 MG **IV Pre-op IV SCH; +ceFAZolin 2000MG 2,000 MG/15 ML SYR IV SCH; +dexAMETHasone 4 MG TAB PO SCH
[2022-08-14] MEDS ORDERED: ATROPINE SULFATE 0.1 MG/ML 10ML SYR IV PRN (08:23)
[2022-08-14] MEDS ORDERED: HYDROmorphone INJ 1 MG/ML SYRINGE IV PRN (08:23)
[2022-08-14] MEDS ORDERED: ONDANSETRON INJ 2 MG/ML 2 ML VIAL IV PRN (08:23)
[2022-08-14] MEDS ORDERED: ePHEDrine sulfate 50 MG/ML AMP IV PRN (08:23)
[2022-08-14] MEDS ORDERED: ORTHO JOINT ANESTHETIC ONE (08:41)
[2022-08-14] MEDS ORDERED: MIDAZOLAM HCL 1 MG/ML 2ML VIAL ONE (08:42)
[2022-08-14] MEDS ORDERED: PROPOFOL IV EMULSION 10 MG/ML 20 ML VIAL IV ONE ×2 (08:45)
--- NOTE | 2022-08-14 10:48 | Operative Report ---
PG Post Operative Report Pre & Post Diagnosis Operation Date: 08/14/22 09:15 Pre-Op Diagnosis: Degenerative joint disease Left Hip Post-Op Diagnosis: Degenerative joint disease Left Hip I identified the patient and participated in the time-out.: Yes Procedure Operation Date: 08/14/22 09:15 Actual Procedures p Left Total Hip Arthroplasty Anterior(Left) - Shashank Martinez DO Surgeon Shashank Martinez DO Leaf Coverer Vincenzo Wiggins PA-C Estimated Blood Loss 250 Findings Consistent with Post-Op Diagnosis Specimens Left femoral head Description of Procedure Implants used I used a ZimmerBiomet total hip arthroplasty system with a size 5 high offset Avenir Complete stem, a 54 mm G7 cup with a 25mm screw, an E1 polyethylene liner, a 40 mm ceramic head with a +3.5 neck. Yair arrived at the hospital for the above procedure. He was seen in the preoperative holding area and the operative extremity was identified and signed. He was given a spinal anesthetic, a preoperative antibiotic, and TXA. He was then taken back to the operating room and laid on the table in the supine position. He was given basic sedation. The operative leg was secured to a Puristst leg positioner. The hip was then prepped and draped in sterile fashion. A timeout was done and the patient and the operative extremity was properly identified. An anterior approach was used. Dissection was taken down through the fascia and the tensor muscle belly was retracted laterally and the rectus was retracted medially. The circumflex vessels were identified and ligated. The capsule was then incised and tagged for later repair. The femoral neck was then cut and the femoral head was removed. The acetabulum was exposed. Time was spent doing a complete circumferential labral release. Sequential reaming of the acetabulum up to a size 53 reamer was done. Final reamings were done under fluoroscopy to ensure appropriate version. A Biomet 54 mm G7 cup was then impacted into place. A single 25 mm screw was placed. The E1 polyethylene liner was then snapped into place. Surrounding soft tissues were then injected with 100 cc of an ortho pedic pain control cocktail. The proximal femur was then exposed. Sequential broaching up to a size 5 broach was done. Off that broach a size 40 head with a +3.5 neck was trialed. The hip was reduced and fluoroscopic images showed anatomic alignment of the implants in acceptable length. The broach was removed. The final size 5 high offset Avenir Complete stem was then impacted into place. A ceramic 40 mm head with a +3.5 neck was then impacted onto the stem and the hip was reduced. Final fluoroscopic images showed anatomic alignment of the hip. The capsule was then closed with #1 Vicryl suture. A dilute betadyne lavage was then done for 3 minutes. The joint was then irrigated with normal saline solution. The fascia was closed with #1 PDS suture. Skin was closed with 2-0 Vicryl, rubina, and a Silverlon dressing. He was then transferred to a hospital bed and taken to the post anesthesia care unit in stable condition. He tolerated the procedure well. Vincenzo Wiggins PA-C, was present for the entire procedure. He was critical for patient positioning, prepping, draping, retraction exposure, wound closure and application of sterile dressing. I attest to the content of the Intraoperative Record and any orders documented therein. Any exceptions are noted below.
--- NOTE | 2022-08-14 11:41 | Fluoroscopy Report ---
INTRAOPERATIVE RADIOGRAPHS CLINICAL HISTORY: Left hip arthroplasty. Fluoro time: 16 sections Exposure: 1.34 mGy FINDINGS: A single spot fluoroscopic image of the left hip is presented. A bipolar left hip arthropla sty is in near anatomic alignment. A single cortical lag screw transfixes the acetabular cup. There i s no evidence of acute fracture on this single fluoroscopic view. IMPRESSION: Intraoperative image from a left arthroplasty procedure as above. Electronically signed by: Balbir Schmidt M.D. 08/14/2022 11:40 AM
--- NOTE | 2022-08-14 11:41 | Anesthesiology Progress Note ---
Date of Service August 14, 2022 Anesthesia Post Procedure Vital Signs Vital Signs: Temp Pulse Pulse Resp BP BP Pulse Ox 08/14/22 11:35 97.5 F L 67 19 107/67 95 08/14/22 11:25 69 13 111/69 96 08/14/22 11:15 81 12 95/59 L 97 08/14/22 11:05 97.5 F L 75 14 110/61 98 08/14/22 07:35 98.4 F 75 18 132/87 94 O2 Del Method O2 Flow Rate 08/14/22 11:35 Room Air 08/14/22 11:25 Room Air 08/14/22 11:15 Oxymask 6 08/14/22 11:05 Oxymask 12 08/14/22 07:35 Room Air Transfer of Care Handoff Completed per policy Notes Mental Status: alert / awake / arousable and participated in evaluation Patient Amnestic to Procedure: Yes Nausea / Vomiting: adequately controlled Pain: adequately controlled Airway Patency, RR, SpO2: stable & adequate BP & HR: stable & adequate Hydration State: stable & adequate Neuraxial Anesthesia: was administered and sensory block is resolving Anesthetic Complications: no major complications apparent and Pt Satisfied with anesthetic care
--- NOTE | 2022-08-14 12:14 | XRay Report ---
XR hip 1V LT w pelvis CLINICAL HISTORY: IN PACU - Post Surgical TECHNIQUE: 2 views of the left hip and single frontal view of the pelvis were obtained. Comparison: Comparison is made to left hip fluoroscopy 08/14/2022 FINDINGS: Patient is status post left total hip arthroplasty with expected postsurgical changes including soft tissue swelling and subcutaneous emphysema. Degenerative changes are seen in the right hip joint. IMPRESSION: Expected postoperative appearance status post placement of left total hip arthroplasty. ACT 112: Negative or not required by law. Electronically signed by: Bhanu Mckee M.D. 08/14/2022 12:12 PM
[2022-08-14] MEDS ORDERED: METOCLOPRAMIDE HCL INJ 5 MG/ML 2 ML VIAL IV PRN (12:20)
[2022-08-14] MEDS ORDERED: CYCLOBENZAPRINE HCL 10 MG TAB PO PRN (12:20)
[2022-08-14] MEDS ORDERED: bisacodyL 10 MG SUPP PR PRN (12:20)
[2022-08-14] MEDS ORDERED: HYDROmorphone INJ 0.5 MG/0.5 ML SYR IV PRN (12:20)
[2022-08-14] MEDS ORDERED: MAGNESIUM HYDROXIDE SUSP 30 ML UDC PO PRN (12:20)
[2022-08-14] MEDS ORDERED: CETIRIZINE HCL 10 MG TABLET PO PRN (12:20)
[2022-08-14] MEDS ORDERED: NALOXONE HCL 0.4 MG/1 ML VIAL/CARP IV PRN (12:20)
[2022-08-14] MEDS: SODIUM CHLORIDE 0.9% 1000ML 1,000 ML IV SCH ×2 (12:23→21:44)
[2022-08-14] MEDS: KETOROLAC 30 MG/ML VIAL IV SCH ×2 (14:49→19:59)
[2022-08-14] MEDS: ceFAZolin 2000MG 2,000 MG/15 ML SYR IV SCH (16:21)
[2022-08-14] MEDS: oxyCODONE HCL IR 5 MG TAB (IMMEDIATE RELEASE) PO PRN (17:27)
[2022-08-14] MEDS ORDERED: SENNA 8.6 MG TAB PO SCH (21:00)
[2022-08-14] MEDS: DOCUSATE SODIUM 100 MG CAP PO SCH (21:28)
[2022-08-14] MEDS: METOPROLOL TARTRATE 25 MG TAB PO SCH (21:28)
[2022-08-15] MEDS: KETOROLAC 30 MG/ML VIAL IV SCH ×2 (01:34→07:38)
[2022-08-15] MEDS: ceFAZolin 2000MG 2,000 MG/15 ML SYR IV SCH (01:38)
--- NOTE | 2022-08-15 07:25 | Orthopedic Progress Note ---
Date of Service August 15, 2022 Assessment & Plan (1) Status post left hip replacement: Overall he is doing well. He is not having much pain in the left hip. He will be seen by physical therapy today for ambulation and range of motion exercises. He can be discharged home later today. He will follow-up orthopedics in 2 weeks. Susu Mazariegos was seen and examined at bedside this morning. Overall he is doing very well. He is not having much pain in the left hip. He has been up and ambulating to the bathroom. He has no complaints.. Review of Systems All systems reviewed & are unremarkable except as noted in HPI & below. Physical Exam On physical examination of the left hip, the dressing is clean and dry. His leg is out in full extension. He has active dorsiflexion plantarflexion of the left ankle.. Results & Data Results & Data Laboratory Results . Diagnostic Findings Postoperative x-rays of the left hip show the prosthesis to be in anatomic alignment without any evidence of fracture, screws, or loosening. PG Care Time/CCT Total # of Minutes Spent Total Time Spent with Patient: Total time spent is greater than 50% in coordination of care (as documented) at patient's floor/unit and/or counseling patient: Coding Level of Care Code 63674 Post Operative Follow-Up Diagnoses Status post left hip replacement Z96.642
--- NOTE | 2022-08-15 07:26 | Discharge Summary ---
Date of Service August 15, 2022 Admission HPI (Per Admitting) Seng is a pleasant 61-year-old male who has been dealing with chronic worsening bilateral hip pain. He has very minimal range of motion of his hips. It is starting to affect his daily activities. He has done over a year of conservative treatment. He has done physical therapy, he has been taking the anti-inflammatories. He has done activity modification. He is to the point where his hips are really affecting his quality of life. X-rays and clinical examination been diagnostic for severe osteoarthritis of his hips. After failing conservative treatment, he has elected to proceed with a right anterior total hip arthroplasty. Admission Exam (Per Admitting) On physical examination of the right hip, he has very limited range of motion. He has pain with forced internal and external rotation.. Principal Diagnosis Same as "Discharge Diagnosis" noted below under Discharge Instructions. Discharge Exam On physical examination of the left hip, the dressing is clean and dry. His leg is out in full extension. He has active dorsiflexion plantarflexion of the left ankle.. Discharge Data Procedures Performed Operation Date: 08/14/22 09:15 Actual Procedures p Left Total Hip Arthroplasty Anterior(Left) - Shashank Martinez DO Ordered Studies 08/14/22 09:15 FL hip LT 1V Routine Hospital Course (1) Status post left hip replacement: On August 14, 2022 Yair arrived at [facility] and underwent a left hip replacement without complication. He had a spinal anesthetic. Postoperatively he was started on aspirin and Plavix for DVT prophylaxis and transferred to the general orthopedic floors. His hospital course was uneventful. On postop day #1, his vital signs were stable and his pain was well controlled. He was able to participate well with physical therapy doing ambulation and range of motion exercises. He was then discharged home. He will follow with orthopedics in 2 weeks. PG Care Time/CCT Total # of Minutes Spent Total Time Spent with Patient: Total time spent is greater than 50% in coordination of care (as documented) at patient's floor/unit and/or counseling patient: Discharge Plan Discharge Items Patient Disposition: Home - Home Health Services Reason For Visit: DJD Left Hip Discharge Diagnosis: Left hip replacement Activity: Per Instructions section Non-emergency contact: Surgeon Call non-emergency contact if: your wound has increased redness and your wound has increased drainage Follow-up/Referrals: Fermin Lau MD [Primary Care Provider] - Diet: Regular Addtl Attending Provider Instructions: Activity and Therapy Recommendations: * If you are using [facility] then therapy will be provided at your home until they feel you have accomplished all of your goals. * If you are using [facility] then Physical Therapy will be provided until they feel you are ready to start Outpatient Physical Therapy. * If you are not using home therapy then Outpatient Physical Therapy should start about 3-5 days from your day of surgery. Therapy will last about 6-10 weeks * You were shown a series of exercises in the hospital. Do these exercises three times each day including the exercises you were shown in physical therapy. * Get up and walk several times each day.~ For the first four weeks, try not to stand or walk for more than one hour at a time. If you do stand or walk for more than one hour, you will not hurt anything, but your leg will likely swell.~~ * As you feel comfortable, you may change from the walker or crutches to a cane and~then to independent walking. Medications: * Narcotic You will likely be sent home from the hospital with a prescription for the narcotic pain medication that worked best throughout your stay. * Aspirin Most patients will be required to take Aspirin 81mg twice a day for 6 weeks after surgery. This is obtained [id number] and a prescription is not necessary. * Other medications may be prescribed for specific circumstances. If you have any questions, please call the office at . * Resume previous home medications unless otherwise instructed TEDs/Elastic Stockings: The white elastic stockings help limit swelling and prevent blood clots from forming in your legs. The more you wear them, the more they work. Wear them for six weeks. Dressing Care: Leave the Silverlon dressing in place for 7 days. After 7 days you may remove the dressing. If the incision is not draining then you may leave the rubina open to air. If there is a little bit of drainage or if the rubina are getting stuck on your clothing then cover the incision with a dry dressing. The rubina will be removed at your 2 week follow-up appointment. Showering: You may shower with the Silverlon dressing in place. Do not let the shower spray hit the dressing directly. Pat the Silverlon dressing dry. If the dressing becomes wet underneath, then simply remove the dressing. Keep the incision dry until you are 7 days out from the day of surgery. After 7 days you may remove the Silverlon dressing and shower with the rubina exposed. Let soapy water run over the rubina and pat them dry. Do not scrub or soak the incision. Things To Watch For: * Drainage from the incision site that occurs more than one week after your surgery. * Increased redness at the incision site. * Fever above 102 degrees Fahrenheit. * Unusual chest pain or shortness of breath. * Call [facility] at with any of the above problems Follow-Up Visit: Follow-up with Dr. Martinez's PA (Shashank Lauren) 2-3 weeks after your day of surgery. He will remove your rubina and answer any questions. If you have any additional questions or concerns, Dr Martinez is usually in the office at the same time and will be available An appointment was probably scheduled when you signed-up for surgery in the office. If you have any questions call Office Instructions: More detailed instructions as well as Frequently Asked Questions were provided in a folder by our office when you signed-up for surgery. Please review these instructions when you get home. If you have any further questions or concerns, please feel free to call the office at [phone] Pending Studies at Discharge: No Stand-Alone Forms: My [facility], Smoking Cessation Medications and DC Order Prescriptions: New oxycodone-acetaminophen 5-325 mg tablet 1 tab PO Q6H PRN (Reason: pain) Qty: 30 0RF Continued acetaminophen [Tylenol Arthritis Pain] 650 mg tablet extended release 1,300 mg PO Q12H PRN (Reason: Pain) omega 1-sfr-zjk-fish oil [Fish Oil] 1,200 (144-216) mg capsule 1 cap PO QAM omeprazole magnesium [Acid Box Printing Machine Operator (omeprazole)] 20 mg capsule,delayed release(DR/EC) 20 mg PO Q2D glucosamine garza 2KCl-chondroit [Glucosamine-Chondroitin 3X Str] 750-600 mg tablet 1 tab PO BID metoprolol tartrate 25 mg tablet 12.5 mg PO BID Qty: 90 3RF cyclobenzaprine 10 mg tablet 10 mg PO HS PRN (Reason: spasms) Qty: 30 2RF Zestril 5 mg tablet 5 mg PO QAM Qty: 90 3RF cetirizine [Zyrtec] 10 mg Tablet 10 mg PO DAILY PRN (Reason: Allergy Symptoms) atorvastatin 80 mg tablet 80 mg PO QAM clopidogrel [Plavix] 75 mg tablet 75 mg PO QAM ezetimibe 10 mg tablet 10 mg PO QAM Changed aspirin 81 mg tablet,delayed release (DR/EC) 81 mg PO BID 42 Days Qty: 0 0RF Admission Data Admit Date/Time: 08/14/22 10:51 Attending Provider: Shashank Martinez Admit Provider: Shashank Martinez Primary Care Provider: Fermin Lau
[2022-08-15] MEDS: METOPROLOL TARTRATE 25 MG TAB PO SCH (07:41)
[2022-08-15] MEDS: DOCUSATE SODIUM 100 MG CAP PO SCH (07:41)
[2022-08-15] MEDS ORDERED: dexAMETHasone 4 MG TAB PO SCH (08:00)
[2022-08-15] MEDS ORDERED: MULTIVITAMIN TAB PO SCH (09:00)
[2022-08-15] MEDS ORDERED: EZETIMIBE 10 MG TABLET PO SCH (09:00)
[2022-08-15] MEDS ORDERED: ASPIRIN 81 MG ECTAB PO SCH (09:00)
[2022-08-15] MEDS ORDERED: lisinopril 5 MG TAB PO SCH (09:00)
[2022-08-15] MEDS ORDERED: CLOPIDOGREL BISULFATE 75 MG TAB PO SCH (09:00)
[2022-08-15] MEDS ORDERED: ATORVASTATIN 40 MG TAB PO SCH (09:00)
[2022-08-15] MEDS ORDERED: PANTOprazole 40 MG TAB PO SCH (09:00)
[2022-08-15] MEDS: oxyCODONE HCL IR 5 MG TAB (IMMEDIATE RELEASE) PO PRN (10:17)
== END 2022-08-15 11:10 | disposition home health service (06) ==
LOC: 3E 06:45 → ASU 06:45

== ENCOUNTER 2022-12-08 05:19 | Observation (INO) ==
--- NOTE | 2022-11-17 13:34 | Anesthesiology Consultation ---
Date of Service November 17, 2022 Assessment & Plan (1) Encounter for pre-operative examination: Chart Review Chart Review: Acceptable Risk for Surgery and Patient NOT seen in Pre Admission Testing - Pt NOT an OPJ candidate (did not come through PAT; but did come through PAT in 07/2022 prior to 08/2022 [facility] and was deemed NOT acceptable OPJ due to inadequate home support) -COVID screening: Per PAT nursing assessment on 11/17/22. No known COVID-19 positive contacts or current COVID-19 related symptoms. Travel screen negative. Patient vaccinated for Covid. At surgeon discretion if preop Covid testing being done. Pt seen by cardio 11/01/22= CAD s/p LAD STEMI and PCI- recent epistaxis episodes. Can d/c Plavix. Continue other medications. Atypical chest pain- chronic and stable atypical chest discomfort, different than prior angina. Occurs only at rest. Denies any recent chest pain. Tobacco abuse- rare cigars. Dyslipidemia/elevated lipoprotein A- continue current meds. "Preoperative cardiac assessment: Low cardiac risk for upcoming hip surgery. No further ischemic testing necessary. Recommend that he remain on aspirin 81 mg daily throughout the perioperative period. Recommend that he remain on beta-rayshawn without interruption." Follow up in six months Left Total Hip Arthroplasty Anterior 08/14/22= Done under [facility]AB at L3-4 with 1 attempt. History Surgery Operation Date: 12/08/22 08:10 Proposed Procedures p Right Anterior Total Hip Arthroplasty - Shashank Martinez, Height/Weight Height: 6 ft 1 in Weight: 84.822 kg Allergies Allergy/AdvReac Type Severity Reaction Status Date / Time fentanyl AdvReac Confusion, Verified 11/17/22 13:06 hallucinations, visual changes Medications Home Medications Medication Instructions Recorded Confirmed Last Taken cyclobenzaprine 10 mg tablet 10 mg PO HS PRN spasms #30 tabs 06/03/22 11/17/22 08/12/22 23:00 lisinopril 5 mg tablet (Zestril) 5 mg PO QAM #90 tabs 06/06/22 11/17/22 08/13/22 09:00 acetaminophen 650 mg 1,300 mg PO Q12H PRN Pain 06/08/22 11/17/22 08/13/22 11:00 tablet,extended release (Tylenol Arthritis Pain) glucosamine sulf dipotassium Cl 1 tab PO BID 06/08/22 11/17/22 07/31/22 750 mg-chondroitin sulf 600 mg tablet (Glucosamine-Chondroitin 3X Triple Strength) omega 0-ilu-xqv-fish oil 1,200 mg 1 cap PO QAM 06/08/22 11/17/22 07/31/22 (144 mg-216 mg) capsule (Fish Oil) omeprazole magnesium 20 mg 20 mg PO Q2D 06/08/22 11/17/22 08/12/22 09:00 capsule,delayed release (Acid Calender Wind Up Helper (omeprazole)) atorvastatin 80 mg tablet 80 mg PO QAM 07/07/22 11/17/22 08/14/22 06:10 cetirizine 10 mg tablet (Zyrtec) 10 mg PO DAILY PRN Allergy Symptoms 07/07/22 11/17/22 08/13/22 21:00 ezetimibe 10 mg tablet 10 mg PO QAM 07/07/22 11/17/22 08/14/22 06:10 aspirin 81 mg tablet,delayed 81 mg PO QAM 11/01/22 11/17/22 Unknown release metoprolol succinate 25 mg 25 mg PO QAM 11/17/22 11/17/22 Unknown tablet,extended release 24 hr Past Medical History Medical History CAD (coronary artery disease) 1 STEVEN 06/2019 Dyslipidemia GERD (gastroesophageal reflux disease) controlled, stable per pt Hiatal hernia History of COVID-19 10/2021, home test and then tested at [place], not hosp; mild cold symptoms for 2 weeks>resolved. Idiopathic polyneuropathy lower legs and feet bilat, denies using ambulating aids ST elevation (STEMI) myocardial infarction 06/24/19, led to cardiac cath w/stent placment; f/u dr. boone, [place] Past Family History Family History Father Diabetes Hx of CABG Acute myocardial infarction Diverticulitis Myocardial infarction Grandfather (Maternal) Acute myocardial infarction Mother Lung cancer Diabetes Grandmother (Maternal) Stroke Denies family history of Ovarian cancer Prostate cancer Breast cancer Colorectal cancer Past Surgical History Surgical History H/O knee surgery rt knee-in the for cartilege repair/removal H/O umbilical hernia repair (04/07/14) History of cardiac cath 06/23/19, [facility], x1 stent History of colonoscopy (02/17/16) Entire examined colon was normal. Next due 2025. History of left hip replacement (~08/2022) Hx of arthroscopy of left knee Hx of cataract surgery bilat. Hx of wisdom tooth extraction S/P drug eluting coronary stent placement 06/23/19, [facility], x1, done by dr marks, [place]; dr boone, [place] cardio Social History Smoking Status: Current some day smoker tobacco type: cigars Smoking cigarettes per day: 1 cigar a month Do You Dip or Chew Tobacco: No Hx Alcohol Use: Yes Alcohol type: beer alcohol intake frequency: a few times a week Hx Substance Use: No substance use type: does not use Lab Results Anesthesia Preop Results Results Anesthesia Widget: WBC 5.18 K/ul (4.8-10.8) 11/13/22 Hgb 16.0 g/dl (14.0-18.0) 11/13/22 Hct 44.9 % (42.0-52.0) 11/13/22 Plt 195 K/uL (130-400) 11/13/22 Na 140 mmol/L (136-145) 11/13/22 K 4.2 mmol/L (3.5-5.1) 11/13/22 Cl 108 mmol/L (98-107) H 11/13/22 CO2 27 mmol/L (21-32) 11/13/22 BUN 12 mg/dl (6-23) 11/13/22 Creat 0.92 mg/dl (0.6-1.4) 11/13/22 Glucose Level 96 mg/dl (70-99(Fasting)) 11/13/22 PT 10.9 Seconds (9.0-12.0) 11/13/22 PTT 26.2 Seconds (21.0-31.0) 11/13/22 INR 1.0 (0.9-1.1) 11/13/22 Blood Type A Positive 11/13/22 Antibody Screen NEGATIVE 11/13/22 Testing Electrocardiogram Date: 07/12/22 NSR, rate 63 bpm Left axis deviation Chest X-Ray Date: 07/12/22 Cardiomediastinal and hilar silhouettes are within normal limits. Coronary arterial stenting. No pneumothorax, pleural effusion, airspace consolidation or overt pulmonary edema. Degenerative changes of the shoulders and spine. IMPRESSION: No acute process. Echocardiogram Date: 06/23/19 EF 55-60% Normal LV wall motion Borderline cLVH Grade I diastolic dysfunction Mild mitral regurgitation Trivial panvalvular regurgitation Cardiac Catheterization Date: 06/22/19 LM -large caliber vessel without significant disease LAD -large caliber vessel, 99% earlymid stenosis just after takeoff of large first diagonal with XUAN I-II distal flow Circumflex -medium caliber vessel with distal luminal irregularities. Medium caliber OM 2 with 50 to 60% proximal disease. RCA -large caliber vessel, dominant, 30 to 40% mid segment disease, distal luminal irregularities. 1. Anterior STEMI/99% earlymid LAD stenosis 2. Mild to moderate non-culprit vessel coronary artery disease -50 to 60% OM 2 30 to 40% mid RCA 3. Normal intracardiac filling pressure 4. Successful PCI of earlymid LAD with single drug-eluting stent (3.5 x 26 mm [place]; postdilated with 4.0 NC).
--- NOTE | 2022-12-07 17:06 | History & Physical Report ---
Date of Service December 07, 2022 Assessment & Plan (1) Primary osteoarthritis of right hip: We will proceed with a right total hip arthroplasty. Postoperatively he will be placed on aspirin and Plavix for DVT prophylaxis and kept overnight in the hospital for postop medical management. He plans to use energy physical therapy upon discharge. History of Present Illness Chief Complaint: Osteoarthritis of the right hip. Primary Care Provider: Fermin Lau MD Yair is a pleasant 62-year-old male who has been doing with chronic increasing right hip and groin pain. X-rays and clinical examination of the diagnostic for advanced osteoarthritis of the right hip. After failing conservative treatment, he has elected proceed with a right total hip arthroplasty. He underwent a left hip replacement in August 2022 and is done very well with that.. Allergies Allergy/AdvReac Type Severity Reaction Status Date / Time fentanyl AdvReac Confusion, Verified 11/17/22 13:06 hallucinations, visual changes Home Medications Medication Instructions Recorded Confirmed Type cyclobenzaprine 10 mg tablet 10 mg PO HS PRN spasms #30 tabs 06/03/22 11/17/22 Rx lisinopril 5 mg tablet (Zestril) 5 mg PO QAM #90 tabs 06/06/22 11/17/22 Rx acetaminophen 650 mg 1,300 mg PO Q12H PRN Pain 06/08/22 11/17/22 History tablet,extended release (Tylenol Arthritis Pain) glucosamine sulf dipotassium Cl 1 tab PO BID 06/08/22 11/17/22 History 750 mg-chondroitin sulf 600 mg tablet (Glucosamine-Chondroitin 3X Triple Strength) omega 3-nqe-sxt-fish oil 1,200 mg 1 cap PO QAM 06/08/22 11/17/22 History (144 mg-216 mg) capsule (Fish Oil) omeprazole magnesium 20 mg 20 mg PO Q2D 06/08/22 11/17/22 History capsule,delayed release (Acid Felt Finishing Supervisor (omeprazole)) atorvastatin 80 mg tablet 80 mg PO QAM 07/07/22 11/17/22 History cetirizine 10 mg tablet (Zyrtec) 10 mg PO DAILY PRN Allergy Symptoms 07/07/22 11/17/22 History ezetimibe 10 mg tablet 10 mg PO QAM 07/07/22 11/17/22 History aspirin 81 mg tablet,delayed 81 mg PO QAM 11/01/22 11/17/22 History release metoprolol succinate 25 mg 25 mg PO QAM 11/17/22 11/17/22 History tablet,extended release 24 hr Past Med/Surg History Medical History CAD (coronary artery disease) 1 STEVEN 06/2019 Dyslipidemia GERD (gastroesophageal reflux disease) controlled, stable per pt Hiatal hernia History of COVID-19 10/2021, home test and then tested at [facility], not hosp; mild cold symptoms for 2 weeks>resolved. Idiopathic polyneuropathy lower legs and feet bilat, denies using ambulating aids ST elevation (STEMI) myocardial infarction 06/24/19, led to cardiac cath w/stent placment; f/u [facility] Surgical History H/O knee surgery rt knee-in the for cartilege repair/removal H/O umbilical hernia repair (04/07/14) History of cardiac cath 06/23/19, [facility], x1 stent History of colonoscopy (02/17/16) Entire examined colon was normal. Next due 2025. History of left hip replacement (~08/2022) Hx of arthroscopy of left knee Hx of cataract surgery bilat. Hx of wisdom tooth extraction S/P drug eluting coronary stent placement 06/23/19, [facility], x1, done by dr marks, [place]; [facility] cardio Family History Father Diabetes Hx of CABG Acute myocardial infarction Diverticulitis Myocardial infarction Grandfather (Maternal) Acute myocardial infarction Mother Lung cancer Diabetes Grandmother (Maternal) Stroke Denies family history of Ovarian cancer Prostate cancer Breast cancer Colorectal cancer Social History Smoking Status: Current some day smoker Cigarettes Per Day: 1 cigar a month; Second Hand Exposure: No; Do You Dip or Chew Tobacco: No; Tobacco Cessation Education Requested by Patient: No Hx Alcohol Use: Yes Alcohol type: beer Alcohol Intake Frequency: 2-3 x/Week Hx Substance Use: No Preferred Language: Haitian Communication Ability: Effective Visual Impairment: No Limitations Hearing Ability: Normal Dye And Chemical Coordinator Required: No Beliefs That Will Affect Care: None marital status: Current Living Situation: Spouse current occupational status: retired current occupation: retired How many Children do You have: 2 Other Information That Helps Us Care for You: No Feels Safe at Home: Yes Safety Concerns: Feels Safe At This Time Childhood Exposure to Second-Hand Smoke: Yes caffeine: Yes Dental Care, Regularly: Yes Physical Activity Frequency: 3-4 Times per Week Seatbelt Use: always Sunscreen Use: Yes Assistive Devices: None Review of Systems All systems reviewed & are unremarkable except as noted in HPI & below. Physical Exam On physical examination the right hip, he has decreased range of motion. He has pain with forced internal/external rotation.. Constitutional WD/WN, vitals as above Eyes PERRL, conjunctivae normal, anicteric sclerae ENMT external ear and nose normal, oropharynx normal Neck trachea midline, no thyromegaly Respiratory normal respiratory effort, lungs clear to auscultation Cardiovascular RRR, no murmur, no edema Gastrointestinal (Abdomen) normal bowel sounds, soft, nontender, no hepatosplenomegaly Skin no rashes, warm and dry Psychiatric A+Ox3, euthymic affect Results & Data Results & Data Laboratory Results . Diagnostic Findings X-rays of the right hip show advanced osteoarthritis with joint space narrowing, osteophyte formation, and [id number]-[id number] articulation. PG Care Time/CCT Total # of Minutes Spent Total Time Spent with Patient: Total time spent is greater than 50% in coordination of care (as documented) at patient's floor/unit and/or counseling patient: Coding Level of Care Code None Diagnoses Primary osteoarthritis of right hip M16.11
[2022-12-08] MEDS ORDERED: LR 500ML BOLUS, THEN 15ML/HR IV SCH (06:00)
[2022-12-08] MEDS ORDERED: dexAMETHasone 4 MG TAB PO SCH (06:00)
[2022-12-08] MEDS ORDERED: LR 60ML/HR IV SCH (06:00)
[2022-12-08] MEDS ORDERED: TRANEXAMIC ACID 1,000 MG **IV Intra-op IV SCH (06:00)
[2022-12-08] MEDS ORDERED: TRANEXAMIC ACID 1,000 MG **IV Pre-op IV SCH (06:00)
[2022-12-08] MEDS ORDERED: ceFAZolin 2000MG 2,000 MG/15 ML SYR IV SCH (06:00)
[2022-12-08] MEDS ORDERED: ACETAMINOPHEN 500 MG TAB PO SCH (06:00)
[2022-12-08] MEDS ORDERED: FAMOTIDINE 20 MG TAB PO SCH (06:00)
[2022-12-08] MEDS ORDERED: GABAPENTIN 300 MG CAP PO SCH (06:00)
[2022-12-08] MEDS ORDERED: Ketorolac (*for OR use only*) 30 MG, dexAMETHasone 4 MG, KETAMINE HCL (**OR use only) 1... INFIL SCH (06:00)
[2022-12-08] MEDS ORDERED: BUPIVACAINE 0.5 % 5 MG/1 ML PF 10ML VIAL ONE (06:19)
[2022-12-08] MEDS ORDERED: ORTHO JOINT ANESTHETIC ONE (06:30)
[2022-12-08] MEDS ORDERED: ATROPINE SULFATE 0.1 MG/ML 10ML SYR IV PRN (06:34)
[2022-12-08] MEDS ORDERED: HYDROmorphone INJ 1 MG/ML SYRINGE IV PRN (06:34)
[2022-12-08] MEDS ORDERED: ONDANSETRON INJ 2 MG/ML 2 ML VIAL IV PRN ×2 (06:34→09:39)
[2022-12-08] MEDS ORDERED: ePHEDrine sulfate 50 MG/ML AMP IV PRN (06:34)
--- NOTE | 2022-12-08 06:37 | History & Physical Bridge Note ---
Date of Service December 08, 2022 History & Physical Bridge Note I have examined the patient, reviewed the History & Physical and in the interval since the performance of the History & Physical I have noted the following changes of clinical significance: no changes noted
[2022-12-08] MEDS ORDERED: LIDOCAINE 2% 2 ML VIAL/AMP(20MG/ML) INFIL ONE (06:41)
[2022-12-08] MEDS ORDERED: PROPOFOL IV EMULSION 10 MG/ML 20 ML VIAL IV ONE (06:41)
[2022-12-08] MEDS ORDERED: ONDANSETRON INJ 2 MG/ML 2 ML VIAL ONE (06:41)
[2022-12-08] MEDS ORDERED: MIDAZOLAM HCL 1 MG/ML 2ML VIAL ONE (06:41)
--- NOTE | 2022-12-08 08:03 | Operative Report ---
PG Post Operative Report Pre & Post Diagnosis Operation Date: 12/08/22 07:00 Pre-Op Diagnosis: Degenerative Joint Disease Right Hip Post-Op Diagnosis: Degenerative Joint Disease Right Hip I identified the patient and participated in the time-out.: Yes Procedure Operation Date: 12/08/22 07:00 Actual Procedures p Right Anterior Total Hip Arthroplasty, Uncemented(Right) - Shashank Martinez DO Surgeon Shashank Martinez DO Rope Maker Shashank Lauren PA-C Estimated Blood Loss 200 Findings Consistent with Post-Op Diagnosis Specimens Right femoral head Description of Procedure Implants used I used a ZimmerBiomet total hip arthroplasty system with a size 4 high offset Avenir Complete stem, a 54 mm G7 cup with a 25mm screw, an E1 polyethylene liner, a 40 mm ceramic head with a +3.5 neck. Yair arrived at the hospital for the above procedure. He was seen in the preoperative holding area and the operative extremity was identified and signed. He was given a spinal anesthetic, a preoperative antibiotic, and TXA. He was then taken back to the operating room and laid on the table in the supine position. He was given basic sedation. The operative leg was secured to a Puristst leg positioner. The hip was then prepped and draped in sterile fashion. A timeout was done and the patient and the operative extremity was properly identified. An anterior approach was used. Dissection was taken down through the fascia and the tensor muscle belly was retracted laterally and the rectus was retracted medially. The circumflex vessels were identified and ligated. The capsule was then incised and tagged for later repair. The femoral neck was then cut and the femoral head was removed. The acetabulum was exposed. Time was spent doing a complete circumferential labral release. Sequential reaming of the acetabulum up to a size 53 reamer was done. Final reamings were done under fluoroscopy to ensure appropriate version. A Biomet 54 mm G7 cup was then impacted into place. A single 25 mm screw was placed. The E1 polyethylene liner was then snapped into place. Surrounding soft tissues were then injected with 100 cc of an orthopedic pain control cocktail. The proximal femur was then exposed. Sequential broaching up to a size 4 broach was done. Off that broach a size 40 head with a +3.5 neck was trialed. The hip was reduced and fluoroscopic images showed anatomic alignment of the implants in acceptable length. The broach was removed. The final size 4 high offset Avenir Complete stem was then impacted into place. A ceramic 40 mm head with a +3.5 neck was then impacted onto the stem and the hip was reduced. Final fluoroscopic images showed anatomic alignment of the hip. The capsule was then closed with #1 Vicryl suture. A dilute betadyne lavage was then done for 3 minutes. The joint was then irrigated with normal saline solution. The fascia was closed with #1 PDS suture. Skin was closed with 2-0 Vicryl, rubina, and a Silverlon dressing. He was then transferred to a hospital bed and taken to the post anesthesia care unit in stable condition. He tolerated the procedure well. Shashank Lauren PA-C, was present for the entire procedure. He was critical for patient positioning, prepping, draping, retraction exposure, wound closure and application of sterile dressing. I attest to the content of the Intraoperative Record and any orders documented therein. Any exceptions are noted below.
--- NOTE | 2022-12-08 08:15 | Fluoroscopy Report ---
FL hip RT 1V CLINICAL HISTORY: RT ANTERIOR COMPARISON STUDY: Radiographs October 03, 2022. FLUOROSCOPY TIME: 15 seconds. Ka, r: 2.0335 mGy FLUOROSCOPIC IMAGES: 1 FINDINGS: Fluoroscopy was provided during anterior total right hip arthroplasty. The hardware is inta ct. No fractures are identified by fluoroscopy. IMPRESSION: Fluoroscopy provided during total right hip arthroplasty. ACT 112: Negative or not required by law. Electronically signed by: Juancho Mobley M.D. 12/08/2022 8:13 AM
[2022-12-08] MEDS ORDERED: MAGNESIUM HYDROXIDE SUSP 30 ML UDC PO PRN (09:39)
[2022-12-08] MEDS ORDERED: bisacodyL 10 MG SUPP PR PRN (09:39)
[2022-12-08] MEDS ORDERED: oxyCODONE HCL IR 5 MG TAB (IMMEDIATE RELEASE) PO PRN (09:39)
[2022-12-08] MEDS ORDERED: HYDROmorphone INJ 0.5 MG/0.5 ML SYR IV PRN (09:39)
[2022-12-08] MEDS ORDERED: NALOXONE HCL 0.4 MG/1 ML VIAL/CARP IV PRN (09:39)
[2022-12-08] MEDS ORDERED: CETIRIZINE HCL 10 MG TABLET PO PRN (09:39)
[2022-12-08] MEDS ORDERED: METOCLOPRAMIDE HCL INJ 5 MG/ML 2 ML VIAL IV PRN (09:39)
[2022-12-08] MEDS ORDERED: CYCLOBENZAPRINE HCL 10 MG TAB PO PRN (09:39)
--- NOTE | 2022-12-08 09:54 | Anesthesiology Progress Note ---
Date of Service December 08, 2022 Anesthesia Post Procedure Vital Signs Vital Signs: Temp Pulse Pulse Resp BP Pulse Ox O2 Del Method 12/08/22 09:40 97.7 F 61 18 101/63 99 Room Air 12/08/22 09:25 97.5 F L 60 16 96/66 L 95 Room Air 12/08/22 09:15 63 17 105/67 95 Room Air 12/08/22 09:05 61 13 97/58 L 96 Room Air 12/08/22 08:55 60 15 99/64 L 94 Room Air 12/08/22 08:45 60 14 101/65 94 Room Air 12/08/22 08:35 64 14 101/61 94 Room Air 12/08/22 08:25 97.0 F L 62 16 101/56 L 97 Room Air 12/08/22 06:09 98.4 F 63 18 113/70 97 Room Air Transfer of Care Handoff Completed per policy Notes Mental Status: alert / awake / arousable and participated in evaluation Patient Amnestic to Procedure: Yes Nausea / Vomiting: adequately controlled Pain: adequately controlled Airway Patency, RR, SpO2: stable & adequate BP & HR: stable & adequate Hydration State: stable & adequate Neuraxial Anesthesia: was administered and sensory block is resolving Anesthetic Complications: no major complications apparent and Pt Satisfied with anesthetic care
[2022-12-08] MEDS: SODIUM CHLORIDE 0.9% 1000ML 1,000 ML IV SCH (09:56)
[2022-12-08] MEDS ORDERED: PANTOprazole 40 MG TAB PO SCH (10:00)
--- NOTE | 2022-12-08 10:36 | XRay Report ---
XR hip 1V RT w pelvis CLINICAL HISTORY: IN PACU - Post Surgical TECHNIQUE: 1 views of the right hip and single frontal view of the pelvis were obtained. Comparison: Comparison is made to hip and pelvis radiograph 08/14/2092 FINDINGS: Patient is status post total hip arthroplasty with expected postsurgical changes including soft tissu e swelling and subcutaneous emphysema. IMPRESSION: Expected postoperative appearance status post placement of total hip arthroplasty. ACT 112: Negative or not required by law. Electronically signed by: Bhanu Mckee M.D. 12/08/2022 10:35 AM
[2022-12-08] MEDS: ASPIRIN 81 MG ECTAB PO SCH ×2 (11:15→20:30)
[2022-12-08] MEDS: ATORVASTATIN 40 MG TAB PO SCH (11:15)
[2022-12-08] MEDS: EZETIMIBE 10 MG TABLET PO SCH (11:16)
[2022-12-08] MEDS: METOPROLOL SUCC 25MG EXT REL TAB PO SCH (11:16)
[2022-12-08] MEDS: KETOROLAC 30 MG/ML VIAL IV SCH ×3 (11:21→21:36)
[2022-12-08] MEDS: lisinopril 5 MG TAB PO SCH (11:22)
[2022-12-08] MEDS: DOCUSATE SODIUM 100 MG CAP PO SCH ×2 (11:23→20:30)
[2022-12-08] MEDS: MULTIVITAMIN TAB PO SCH (11:23)
[2022-12-08] MEDS: ACETAMINOPHEN 500 MG TAB PO SCH ×2 (13:20→21:35)
--- NOTE | 2022-12-08 14:02 | Hospitalist Consultation ---
Date of Consultation December 08, 2022 Assessment & Plan (1) Abdominal pain: -Patient is currently stable and asymptomatic -At this time the etiology of the patient's transient right flank/abdominal pain appears to have been gas pain -Pain was resolved after walking and passing gas, patient now asymptomatic and with a benign abdominal exam -No concerning findings on exam of the recent procedure site -Able to eat and drink without issue -Will hold off on labs and imaging at this time as his complaint has completely resolved, he is not toxic, and very stable -Will order q6h prn simethicone, spoke to his nurse who will give him a dose now -Thank you for allowing us to participate in the care of this patient, please reach out with any questions or concerns -Medicine will sign off; please place a new consult order if another consult is required Plan The patient was discussed with Dr. Harris at the time of the consult Supervising Physician Co-Signing Physician Notes I personally saw and examined the patient. I verified all lowe points and agree with Alfredo Maharaj PA-C with the following exceptions and/or additions: 62 year old male POD#0 with initial severity 8/10 abdominal pain. Now completely resolved after passing gas and walking around post operatively. O/E No abdominal pain, soft, BS normal A/P Right lower quadrant abdominal pain - suspect due to increased gas, now resolved Thank you for the consult we will sign off at this time. Please contact [facility] hospitalist hospice nurse practitioner if any questions or concerns. History of Present Illness Reason for Consultation: Post-op abdominal/right flank pain Requesting Physician: Shashank Kellogg Attending Physician: Dr. Ariel Harris History of Present Illness Yair is a 62 year old male with a PMH significant for CAD s/p LAD STEMI and PCI, atypical chest pain at rest, dyslipidemia, BL Sacroiliitis and GERD who presented to the [facility] OR on 12/08 for scheduled Right Anterior Total Hip Arthroplasty with Dr. Shashank Martinez. Review of the patient's vitals since arrival shows his to have been mildly hypotensive at 96/66 but otherwise stable. Per the operative report, there was no reported anesthesia type, RBL was listed as 200cc, and there were no reported intraoperative complications. We were consulted for post-operative abdominal/right flank pain. At the time of the exam the patient was in the bathroom, urinating. His nurse states that the patient came to the floor around 0930, at approximately 1040 the patient developed sudden onset of right abdomen/flank pain which radiated to the central abdomen, then down to the lower abdomen. His nurse gave him a dose of Dilaudid, which did not improve his symptoms significantly. His nurse was then able to assist him with getting up and walking in the [place]. This started to improve his discomfort. The patient then began to pass gas, completely resolving his pain. The patient was in no distress upon exiting the bathroom, he was able to ambulate to his bed without issue with a walker. He confirms the location, radiation, severity, and type of pain. He also confirms that the pain is resolved after passing gas. He denies recent fever, chills, chest pain, SOB, cough, current abd pain, nausea, vomiting, dysuria, hematuria, melena, and recent falls. Since the pain started he has been able to eat and drink without issue. Please refer to Dr. Harris's attestation for any changes to the treatment plan. Allergies Allergy/AdvReac Type Severity Reaction Status Date / Time fentanyl AdvReac Confusion, Verified 12/08/22 05:37 hallucinations, visual changes Home Medications Medication Instructions Recorded Confirmed Type cyclobenzaprine 10 mg tablet 10 mg PO HS PRN spasms #30 tabs 06/03/22 12/08/22 Rx lisinopril 5 mg tablet (Zestril) 5 mg PO QAM #90 tabs 06/06/22 12/08/22 Rx acetaminophen 650 mg 1,300 mg PO Q12H PRN Pain 06/08/22 12/08/22 History tablet,extended release (Tylenol Arthritis Pain) glucosamine sulf dipotassium Cl 1 tab PO BID 06/08/22 12/08/22 History 750 mg-chondroitin sulf 600 mg tablet (Glucosamine-Chondroitin 3X Triple Strength) omega 7-vnf-oas-fish oil 1,200 mg 1 cap PO QAM 06/08/22 12/08/22 History (144 mg-216 mg) capsule (Fish Oil) omeprazole magnesium 20 mg 20 mg PO Q2D 06/08/22 12/08/22 History capsule,delayed release (Acid [employer] (omeprazole)) atorvastatin 80 mg tablet 80 mg PO QAM 07/07/22 12/08/22 History cetirizine 10 mg tablet (Zyrtec) 10 mg PO DAILY PRN Allergy Symptoms 07/07/22 12/08/22 History ezetimibe 10 mg tablet 10 mg PO QAM 07/07/22 12/08/22 History metoprolol succinate 25 mg 25 mg PO QAM 11/17/22 12/08/22 History tablet,extended release 24 hr aspirin 81 mg tablet,delayed 81 mg PO BID 42 days #0 tabs 12/09/22 12/08/22 Rx release oxycodone-acetaminophen 5 mg-325 1 tab PO Q6H PRN pain #30 tabs 12/09/22 Rx mg tablet Patient History Medical History CAD (coronary artery disease) 1 STEVEN 06/2019 Dyslipidemia GERD (gastroesophageal reflux disease) controlled, stable per pt Hiatal hernia History of COVID-19 10/2021, home test and then tested at [place], not hosp; mild cold symptoms for 2 weeks>resolved. Idiopathic polyneuropathy lower legs and feet bilat, denies using ambulating aids ST elevation (STEMI) myocardial infarction 06/24/19, led to cardiac cath w/stent placment; f/u dr. boone, [place] Surgical History H/O knee surgery rt knee-in the 1979's for cartilege repair/removal H/O umbilical hernia repair (04/07/14) History of cardiac cath 06/23/19, [facility], x1 stent History of colonoscopy (02/17/16) Entire examined colon was normal. Next due 2025. History of left hip replacement (~08/2022) Hx of arthroscopy of left knee Hx of cataract surgery bilat. Hx of wisdom tooth extraction S/P drug eluting coronary stent placement 06/23/19, [facility], x1, done by dr marks, [place]; dr boone, [place] cardio Family History Father Diabetes Hx of CABG Acute myocardial infarction Diverticulitis Myocardial infarction Grandfather (Maternal) Acute myocardial infarction Mother Lung cancer Diabetes Grandmother (Maternal) Stroke Denies family history of Ovarian cancer Prostate cancer Breast cancer Colorectal cancer Social History Smoking Status: Current some day smoker Cigarettes Per Day: 1 cigar a month; Second Hand Exposure: No; Do You Dip or Chew Tobacco: No; Hx Alcohol Use: Yes Alcohol type: beer Alcohol Intake Frequency: 2-3 x/Week Hx Substance Use: No Preferred Language: Lithuanian Communication Ability: Effective Visual Impairment: No Limitations Hearing Ability: Normal 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 Beliefs That Will Affect Care: None marital status: Current Living Situation: Spouse current occupational status: retired current occupation: retired How many Children do You have: 2 Feels Safe at Home: Yes Childhood Exposure to Second-Hand Smoke: Yes caffeine: Yes Dental Care, Regularly: Yes Physical Activity Frequency: 3-4 Times per Week Seatbelt Use: always Sunscreen Use: Yes Assistive Devices: Cane and Walker Physical Exam Physical Exam: Physical Exam: General: In no acute distress, stated age, well-nourished, good hygiene HEENT: Normocephalic, atraumatic, no scleral icterus, pupils around round, symmetrical, and reactive to light, moist mucus membranes, trachea midline, no thyromegaly Chest/Pulm: No respiratory distress, symmetrical chest expansion, clear breath sounds throughout Cardiac: RRR, no murmurs noted Abdomen: Negative for ascites and bruising, normoactive bowel sounds, soft, non-tender to palpation throughout. No signs of bruising, bleeding, or rash on the right back, flank or side, no tenderness to palpation in the same areas Musculoskeletal: Procedure site for right hip replacement currently with bandage in place and without signs of bleeding or drainage Extremities: Radial, dorsalis pedis, and posterior tibial pulses are intact and symmetrical, no edema noted in the BL LE's Skin: Warm, dry, no rashes , lesions, or scars noted Neuro: Alert and oriented to person, place, month, year, and president, no focal defects, no tremors noted Psych: No acute distress, calm and cooperative during the exam Results & Data Results & Data Vital Signs (Past 12 Hours) Vital Signs Temp Pulse Pulse Resp BP Pulse Ox O2 Del Method 12/08/22 12:48 60 18 122/71 98 Room Air 12/08/22 11:40 36.3 C L 72 18 116/70 95 Room Air 12/08/22 10:40 36.5 C 57 L 18 110/75 100 Room Air 12/08/22 10:14 36.5 C 60 18 108/72 97 Room Air 12/08/22 09:40 36.5 C 61 18 101/63 99 Room Air 12/08/22 09:25 36.4 C L 60 16 96/66 L 95 Room Air 12/08/22 09:15 63 17 105/67 95 Room Air 12/08/22 09:05 61 13 97/58 L 96 Room Air 12/08/22 08:55 60 15 99/64 L 94 Room Air 12/08/22 08:45 60 14 101/65 94 Room Air 12/08/22 08:35 64 14 101/61 94 Room Air 12/08/22 08:25 36.1 C L 62 16 101/56 L 97 Room Air 12/08/22 06:09 36.9 C 63 18 113/70 97 Room Air Diagnostic Findings Hip X-Ray 12/08/22 07:00 FL hip RT 1V CLINICAL HISTORY: RT ANTERIOR COMPARISON STUDY: Radiographs October 03, 2022. FLUOROSCOPY TIME: 15 seconds. Ka, r: 2.0335 mGy FLUOROSCOPIC IMAGES: 1 FINDINGS: Fluoroscopy was provided during anterior total right hip arthroplasty. The hardware is intact. No fractures are identified by fluoroscopy. IMPRESSION: Fluoroscopy provided during total right hip arthroplasty. ACT 112: Negative or not required by law. Electronically signed by: Juancho Mobley M.D. 12/08/2022 8:13 AM Hip/Pelvis X-Ray 12/08/22 08:25 XR hip 1V RT w pelvis CLINICAL HISTORY: IN PACU - Post Surgical TECHNIQUE: 1 views of the right hip and single frontal view of the pelvis were obtained. Comparison: Comparison is made to hip and pelvis radiograph 08/14/2092 FINDINGS: Patient is status post total hip arthroplasty with expected postsurgical changes including soft tissue swelling and subcutaneous emphysema. IMPRESSION: Expected postoperative appearance status post placement of total hip arthroplasty. ACT 112: Negative or not required by law. Electronically signed by: Bhanu Mckee M.D. 12/08/2022 10:35 AM PG Care Time/CCT Total # of Minutes Spent Total Time Spent with Patient: Total time spent is greater than 50% in coordination of care (as documented) at patient's floor/unit and/or counseling patient: C[place] [address] IN/OBS CONSULT LVL 2,35M Patient Type Established Medical Decision Making Low Complexity Diagnoses Abdominal pain R10.9
[2022-12-08] MEDS ORDERED: SIMETHICONE 80 MG CHEW PO PRN (14:22)
[2022-12-08] MEDS: ceFAZolin 2000MG 2,000 MG/15 ML SYR IV SCH ×2 (14:59→21:35)
[2022-12-08] MEDS ORDERED: SENNA 8.6 MG TAB PO SCH (21:00)
[2022-12-09] MEDS: SODIUM CHLORIDE 0.9% 1000ML 1,000 ML IV SCH (00:05)
[2022-12-09] MEDS: KETOROLAC 30 MG/ML VIAL IV SCH ×2 (02:56→09:34)
[2022-12-09] MEDS: ACETAMINOPHEN 500 MG TAB PO SCH (06:07)
[2022-12-09] MEDS ORDERED: dexAMETHasone 4 MG TAB PO SCH (08:00)
--- NOTE | 2022-12-09 09:05 | Orthopedic Progress Note ---
Date of Service December 09, 2022 Assessment & Plan (1) Status post right hip replacement: Overall he is doing very well. He is not having much pain in the right hip. He will be seen by physical therapy today for ambulation and range of motion exercises. He is on aspirin for DVT prophylaxis. He can be discharged home later today. He will follow-up with orthopedics in 2 weeks. Subjective Seng was seen and examined at bedside this morning. Overall he is doing very well. He is not having much pain in the right hip. He has been up and ambulating to the bathroom. He has no complaints.. Review of Systems All systems reviewed & are unremarkable except as noted in HPI & below. Physical Exam On physical examination of the right hip, the dressing is clean and dry. His leg is out full extension. He has active dorsiflexion plantarflexion of his right ankle.. Results & Data Results & Data Laboratory Results . Diagnostic Findings Postoperative x-rays of the right hip show the prosthesis to be in anatomic alignment without any evidence of fracture, desiccation, or loosening.. PG Care Time/CCT Total # of Minutes Spent Total Time Spent with Patient: Total time spent is greater than 50% in coordination of care (as documented) at patient's floor/unit and/or counseling patient: Coding Level of Care Code 93716 Post Operative Follow-Up Diagnoses Status post right hip replacement Z96.641
--- NOTE | 2022-12-09 09:07 | Discharge Summary ---
Date of Service December 09, 2022 Admission HPI (Per Admitting) Yair is a pleasant 62-year-old male who has been doing with chronic increasing right hip and groin pain. X-rays and clinical examination of the diagnostic for advanced osteoarthritis of the right hip. After failing conservative treatment, he has elected proceed with a right total hip arthroplasty. He underwent a left hip replacement in August 2022 and is done very well with that.. Admission Exam (Per Admitting) On physical examination the right hip, he has decreased range of motion. He has pain with forced internal/external rotation.. Principal Diagnosis Same as "Discharge Diagnosis" noted below under Discharge Instructions. Discharge Exam On physical examination of the right hip, the dressing is clean and dry. His leg is out full extension. He has active dorsiflexion plantarflexion of his right ankle.. Discharge Data Consultations 12/08/22 12:07 Consult Hospitalist Routine Procedures Performed Operation Date: 12/08/22 07:00 Actual Procedures p Right Anterior Total Hip Arthroplasty, Uncemented(Right) - Shashank Martinez DO Ordered Studies 12/08/22 07:00 FL hip RT 1V Routine Hospital Course (1) Status post right hip replacement: On December 08, 2022 Yair arrived at [facility] and underwent a right hip replacement without complication. He had a spinal anesthetic. Postoperatively he was started on aspirin for DVT prophylaxis and transferred to the general orthopedic floors. His hospital course was uneventful. On postop day #1, his vital signs were stable and his pain was well controlled. He was able to participate well with physical therapy doing ambulation and range of motion exercises. He was then discharged home. He will follow-up with orthopedics in 2 weeks. PG Care Time/CCT Total # of Minutes Spent Total Time Spent with Patient: Total time spent is greater than 50% in coordination of care (as documented) at patient's floor/unit and/or counseling patient: Discharge Plan Discharge Items Patient Disposition: Home - Home Health Services Reason For Visit: Degenerative Joint Disease Right Hip Discharge Diagnosis: Right hip replacement Activity: Per Instructions section Non-emergency contact: Surgeon Call non-emergency contact if: your wound has increased redness and your wound has increased drainage Follow-up/Referrals: Fermin Lau MD [Primary Care Provider] - Diet: Regular Addtl Attending Provider Instructions: Activity and Therapy Recommendations: * If you are using [facility] then therapy will be provided at your home until they feel you have accomplished all of your goals. * If you are using [facility] then Physical Therapy will be provided until they feel you are ready to start Outpatient Physical Therapy. * If you are not using home therapy then Outpatient Physical Therapy should start about 3-5 days from your day of surgery. Therapy will last about 6-10 weeks * You were shown a series of exercises in the hospital. Do these exercises three times each day including the exercises you were shown in physical therapy. * Get up and walk several times each day.~ For the first four weeks, try not to stand or walk for more than one hour at a time. If you do stand or walk for more than one hour, you will not hurt anything, but your leg will likely swell.~~ * As you feel comfortable, you may change from the walker or crutches to a cane and~then to independent walking. Medications: * Narcotic You will likely be sent home from the hospital with a prescription for the narcotic pain medication that worked best throughout your stay. * Aspirin Most patients will be required to take Aspirin 81mg twice a day for 6 weeks after surgery. This is obtained [id number] and a prescription is not necessary. * Other medications may be prescribed for specific circumstances. If you have any questions, please call the office at . * Resume previous home medications unless otherwise instructed TEDs/Elastic Stockings: The white elastic stockings help limit swelling and prevent blood clots from forming in your legs. The more you wear them, the more they work. Wear them for six weeks. Dressing Care: Leave the Silverlon dressing in place for 7 days. After 7 days you may remove the dressing. If the incision is not draining then you may leave the rubina open to air. If there is a little bit of drainage or if the rubina are getting stuck on your clothing then cover the incision with a dry dressing. The rubina will be removed at your 2 week follow-up appointment. Showering: You may shower with the Silverlon dressing in place. Do not let the shower spray hit the dressing directly. Pat the Silverlon dressing dry. If the dressing becomes wet underneath, then simply remove the dressing. Keep the incision dry until you are 7 days out from the day of surgery. After 7 days you may remove the Silverlon dressing and shower with the rubina exposed. Let soapy water run over the rubina and pat them dry. Do not scrub or soak the incision. Things To Watch For: * Drainage from the incision site that occurs more than one week after your surgery. * Increased redness at the incision site. * Fever above 102 degrees Fahrenheit. * Unusual chest pain or shortness of breath. * Call [facility] at with any of the above problems Follow-Up Visit: Follow-up with Dr. Martinez's PA (Shashank Lauren) 2-3 weeks after your day of surgery. He will remove your rubina and answer any questions. If you have any additional questions or concerns, Dr Martinez is usually in the office at the same time and will be available An appointment was probably scheduled when you signed-up for surgery in the office. If you have any questions call Office Instructions: More detailed instructions as well as Frequently Asked Questions were provided in a folder by our office when you signed-up for surgery. Please review these instructions when you get home. If you have any further questions or concerns, please feel free to call the office at [phone] Pending Studies at Discharge: No Stand-Alone Forms: My [facility] [employer], Smoking Cessation Medications and DC Order Prescriptions: New oxycodone-acetaminophen 5-325 mg tablet 1 tab PO Q6H PRN (Reason: pain) Qty: 30 0RF Continued acetaminophen [Tylenol Arthritis Pain] 650 mg tablet extended release 1,300 mg PO Q12H PRN (Reason: Pain) omega 0-zyn-hfq-fish oil [Fish Oil] 1,200 (144-216) mg capsule 1 cap PO QAM omeprazole magnesium [Acid Whirley Operator (omeprazole)] 20 mg capsule,delayed release(DR/EC) 20 mg PO Q2D glucosamine garza 2KCl-chondroit [Glucosamine-Chondroitin 3X Str] 750-600 mg tablet 1 tab PO BID cyclobenzaprine 10 mg tablet 10 mg PO HS PRN (Reason: spasms) Qty: 30 2RF Zestril 5 mg tablet 5 mg PO QAM Qty: 90 3RF cetirizine [Zyrtec] 10 mg Tablet 10 mg PO DAILY PRN (Reason: Allergy Symptoms) atorvastatin 80 mg tablet 80 mg PO QAM ezetimibe 10 mg tablet 10 mg PO QAM metoprolol succinate 25 mg tablet extended release 24 hr 25 mg PO QAM Changed aspirin 81 mg tablet,delayed release (DR/EC) 81 mg PO BID 42 Days Qty: 0 0RF Admission Data Admit Date/Time: 12/08/22 08:25 Attending Provider: Shashank Martinez Admit Provider: Shashank Martinez Primary Care Provider: Fermin Lau Other Providers: Ariel Harris
[2022-12-09] MEDS: MULTIVITAMIN TAB PO SCH (09:32)
[2022-12-09] MEDS: lisinopril 5 MG TAB PO SCH (09:32)
[2022-12-09] MEDS: DOCUSATE SODIUM 100 MG CAP PO SCH (09:32)
[2022-12-09] MEDS: METOPROLOL SUCC 25MG EXT REL TAB PO SCH (09:32)
[2022-12-09] MEDS: EZETIMIBE 10 MG TABLET PO SCH (09:32)
[2022-12-09] MEDS: ATORVASTATIN 40 MG TAB PO SCH (09:32)
[2022-12-09] MEDS: ASPIRIN 81 MG ECTAB PO SCH (09:32)
== END 2022-12-09 11:04 | disposition home health service (06) ==
LOC: ASU 05:19 → 3E 05:19